=== PATIENT | male | born 1950 | race Caucasian/White ===

== ENCOUNTER 2024-11-24 10:46 | Inpatient (IN) | payer OTHER, MEDICARE ==
[~2024-11-24] VITALS: Ht 177.8 cm; Wt 79.5 kg
--- NOTE | 2024-11-24 10:56 | ELECTROCARDIOGRAPH REPORT ---
[facility] Test Date: 2024-11-24 Test Time: 10:54:17 Pat Name: HUGO MULLINS Department: EMERGENCY ROOM Room: Gender: M Attending Radiologist: DAMARIS : 1950 Requested By: MICHELE RIBEIRO Order Number: [id number] Reading MD: Measurements Intervals [place] Rate: 112 P: 63 HI: 189 QRS: -55 QRSD: 102 T: 46 QT: 335 QTc: 458 Interpretive Statements Sinus tachycardia Inferior infarct, old Consider anterior infarct Baseline wander in lead(s) II Please click the below link to view image of tracing.
--- NOTE | 2024-11-24 11:01 | Physician Documentation ---
History of Present Illness General Chief Complaint: Chest Pain Stated Complaint: CHEST WALL PAIN Time Seen by MD: 10:54 History of Present Illness Initial Comments The patient is a 74-year-old male presents by EMS for a complaint of chest pain. The patient told the EMS that he has had chest pain since this morning. The patient states he has had chest pain over last several days with cough congestion and shortness of breath. He states he has chronic neck and back pain he states he is out of his gabapentin. The patient states that he his been vomiting for two weeks. Currently denying any abdominal pain. The patient denies any fevers or chills. Patient's symptoms are moderate and persistent. The patient's chest pain is right-sided it is worse when he takes a big breath. In his described as sharp. The patient states he uses marijuana he is a nonsmoker but he does smoke marijuana. The patient denies any methamphetamine use. Medication Reconciliation Allergies: Coded Allergies: No Known Allergies (Unverified , 11/24/24) Scheduled Amlodipine Besylate/Benazepril 5/40 MG* (Amlodipine-Benazepril 5/40 MG*), 1 CAP PO BID, (Reported) Aspirin (Aspirin), 1 TAB.CHEW PO DAILY, (Reported) Atorvastatin Calcium (Atorvastatin Calcium), 1 TABLET PO DAILY, (Reported) Duloxetine HCl (Duloxetine HCl), 1 CAP PO HS, (Reported) Duloxetine HCl (Duloxetine HCl), 1 CAP PO AM, (Reported) Gabapentin (Gabapentin), 1 CAP PO Q8H, (Reported) Gabapentin (Gabapentin), 1 TAB PO Q8H, (Reported) Ibuprofen* (Motrin*), 400 MG PO Q8H, (Reported) Lidocaine (Lidocaine), 1 PATCH TOP DAILY, (Reported) Lidocaine (Lidocaine), 7.5 PATCH TOP DAILY, (Reported) Lisinopril* (Lisinopril*), 1 TAB PO DAILY, (Reported) Loratadine* (Alavert*), 1 TAB PO DAILY, (Reported) Metformin Hcl* (Metformin ER*), 1 TAB PO Q12H, (Reported) Methocarbamol (Methocarbamol), 1 TAB PO Q6H, (Reported) Omeprazole (Omeprazole), 1 CAP PO HS, (Reported) Omeprazole (Omeprazole), 1 TAB PO DAILY, (Reported) [Cosamin], 1,500 MG PO DAILY, (Reported) [Meroprolol], 25 MG PO BID, (Reported) [jacinta [place]-3], 1 CAP PO DAILY, (Reported) Scheduled PRN Acetaminophen (Tylenol), 1-2 TAB PO QID PRN PRN for pain or fever, (Reported) Acetaminophen (Tylenol), 1-2 TAB PO TID PRN for pain or fever, (Reported) Hydrocodone Bit/Acetaminophen 5/325 MG ([place] 5/325 MG), 1 TAB PO Q6H PRN for pain, (Reported) ONDANSETRON ODT 4mg tablet (Ondansetron Odt), 1 TAB PO Q6H PRN PRN for nausea/vomiting, (Reported) Miscellaneous Medications Magnesium Sulfate (Magnesium Sulfate), (Reported) Past Medical History Past Medical History: Diabetes, Chronic Back Pain Review of Systems All Other Systems at this time: Reviewed and Negative Physical Exam Physical Exam Physical Exam VITALS: Reviewed and as above. GENERAL: Alert,mild distress secondary to pain, poor hygiene HEENT: Normocephalic, atraumatic, PERRL, EOMI, dry mucosa, no erythema RESPIRATORY: Lungs clear, normal breath sounds, no respiratory distress. CHEST: No accessory muscle use, no retractions CV: Regular rate, rhythm, no edema, no murmur, No: JVD GI: Soft, non-tender, bowels sounds present, no rebound, guarding, or rigidity BACK: No CVA tenderness, or swelling MUSCULOSKELETAL No deformities, no edema SKIN: Warm and dry, no rash NEURO: Oriented x4, No motor or sensory deficit PSYCH: Normal mood and affect, no agitation Progress Results/Orders Results/Orders Orders - OHLFSMICHELE MD Chest,Single View (11/24/24 10:57) Monitor (11/24/24 10:57) Saline Lock (11/24/24 10:57) Oxygen (11/24/24 10:57) Page Hospitalist (11/24/24 13:08) Fill Out Med Reconciliation (11/24/24 13:08) Completed Orders - OHMICHELE MCKEON MD Cbc/Diff (11/24/24 10:52) Normal Saline 1000ml (0.9% Sodium Chlori (11/24/24 10:55) CMP (11/24/24 10:52) Lipase (11/24/24 10:52) Normal Saline 1000ml (0.9% Sodium Chlori (11/24/24 10:55) MG (11/24/24 10:52) Pt Inr (11/24/24 10:52) PBNP (11/24/24 10:52) Electrocardiogram (11/24/24 10:52) Hs Troponin I W Calculations (11/24/24 10:52) Hs Troponin I W Calculations (11/24/24 12:52) Hs Troponin I W Calculations (11/24/24 13:52) Procalcitonin (11/24/24 10:52) Metoclopramide Inj (Reglan Inj) (11/24/24 10:55) Diphenhydramine Inj (Benadryl Inj.) (11/24/24 10:55) Morphine 4mg/Ml Inj. (Morphine Inj.) (11/24/24 10:55) Chest,Single View (11/24/24 10:57) BMP (11/24/24 10:57) Ua W/Microscopic, Cult If Ind (11/24/24 11:30) Vital Signs 11/24/24 11/24/24 11:27 13:06 Temp 98.5 Pulse 108 Resp 20 18 B/P (MAP) 210/105 Pulse Ox 95 O2 Flow Rate 0 Laboratory Tests Test 11/24/24 11:11 11/24/24 11:30 11/24/24 12:46 White Blood Count 14.1 H Red Blood Count 5.32 Hemoglobin 16.0 Hematocrit 47.4 Mean Corpuscular Volume 89.0 Mean Corpuscular Hemoglobin 30.0 Mean Corpuscular Hemoglobin Concent 33.7 Red Cell Distribution Width 12.5 Platelet Count 278 Mean Platelet Volume 7.4 Neutrophils (%) (Auto) 87.8 H Lymphocytes (%) (Auto) 8.8 L Monocytes (%) (Auto) 2.9 Eosinophils (%) (Auto) 0 Basophils (%) (Auto) 0.5 Neutrophils # (Auto) 12.4 H Lymphocytes # (Auto) 1.2 Monocytes # (Auto) 0.4 Eosinophils # (Auto) 0.0 Basophils # (Auto) 0.1 CBC Comment Prothrombin Time 10.8 INR International Normalized Ratio 1.1 D-Dimer 0.55 H D-Dimer Comment Coagulation Comments Sodium Level 139 Potassium Level 4.2 Chloride Level 101 Carbon Dioxide Level 24.9 Anion Gap 13 Blood Urea Nitrogen 18 Creatinine 0.99 Estimated GFR/1.73 m2 73 BUN/Creatinine Ratio 18.2 Glucose Level 365 H Calcium Level 8.6 Magnesium Level 1.8 Total Bilirubin 1.2 H Aspartate Amino Transf (AST/SGOT) 15 Alanine Aminotransferase (ALT/SGPT) 23 Alkaline Phosphatase 110 Troponin I High Sensitivity 23 36 Pro-B-Type Natriuretic Peptide 511 H Total Protein 7.1 Albumin 4.0 Globulin 3.1 Albumin/Globulin Ratio 1.3 Lipase 32 Procalcitonin < 0.05 Chemistry Comments Urine Specimen Description Cln catch midstream Urine Color Yellow Urine Clarity Clear Urine pH 5.5 Urine Specific [place] 1.020 Urine Protein 30 H Urine Glucose (UA) >=1000 H Urine Ketones >=80 Urine Occult Blood Small Urine Nitrite Negative Urine Bilirubin Negative Urine Urobilinogen 0.2 Urine Leukocyte Esterase Negative Urine RBC 0-2 Urine WBC 0-4 Urine Squamous Epithelial Cells None seen Urine Bacteria None seen Urine Mucus Few Urine Culture Indicated Not ind Volume Urine Centrifuged 10 ml Urine Comment Urine Opiates Screen Positive Urine Methadone Screen Negative Urine Fentanyl Screen Negative Urine Barbiturates Screen Negative Urine Phencyclidine Screen Negative Urine Amphetamines Screen Negative Urine Benzodiazepines Screen Negative Urine Cocaine Screen Negative Urine Cannabinoids Screen Positive Drug Screen Comment Troponin I High Sens Percent Delta 56 Troponin I Hi Sens Absolute Change 13 EKG/XRAY/CT/US/VASC/MRI Chest X-Ray : Additional Comments Patient: HUGO MULLINS Medical Record: [id number] [facility] : 1950, Age: 74 Sex: Male Location: ER Patient Status: REG ER Service Date/Time: 11/24/241056 Ordering Physician: MICHELE CANTOR MD Exam: CHEST,SINGLE VIEW DI CHEST,SINGLE VIEW, HISTORY: CP COMPARISON: None None TECHNICAL DATA: 1 view of the chest was obtained. FINDINGS: Lines and tubes: Catheter projects over right chest. Cardiomediastinal silhouette: normal Pulmonary vasculature: normal Lung expansion: normal Lung airspace: Right basilar subsegmental atelectasis. Lung interstitium: normal Pleura: normal Pneumothorax: no Bones: Unremarkable Other: no IMPRESSION: Right basilar subsegmental atelectasis. Electronically Signed by:KIRILL RIVERS MD Date & Time: 11/24/24 114 Dictated by: KIRILL RIVERS MD Dictation date and time: 11/24/24 1146 Primary Care Provider: NO PRIMARY CARE PROVIDER cc: MICHELE CANTOR MD ~ Medical Decision Making Findings The patient is 12 lead EKG demonstrates a left axis deviation a rate of 112 sinus tachycardia with nonspecific ST abnormality EKGs interpreted as abnormal. The patient presents and a poor study at [facility] that who does not appear to be taking his diabetes meds or his gabapentin for his chronic pain the patient was found to be dehydrated hyperglycemic and complaining of chest pain is cardiac workup has been fairly unremarkable his EKG just showed sinus tachycardia his cardiac enzymes are negative but given the patient's state of health I believe he would benefit from inpatient admission the patient is amenable to inpatient admission his chest x-ray has been independently reviewed by me it demonstrated a normal cardiac silhouette normal mediastinum and normal-appearing lung ramirez. I interpreted as labs as well as interpreted his EKG. The patient's pulse oximetry was interpreted as normal and adequate. And the patient's vet assistant was interpreted as a sinus tachycardia Departure Admitted to Inpatient Unit: yes, to hospitalist Impression: Primary Impression: Chest pain Qualified Codes: R07.9 - Chest pain, unspecified Additional Impressions: Dehydration Hyperglycemia due to diabetes mellitus Referrals: NO PRIMARY CARE PROVIDER (PCP) Signature Scribe Signature: no scribe Attestation: The note accurately reflects work and decisions made by me.Michele Cantor MD 11/27/24 12:06 MICHELE CANTOR MD Nov 24, 2024 11:01
[2024-11-24] MEDS: morphine 4 MG/ML inj SYRINge IV ONE ×2 (11:02→16:48)
[2024-11-24] MEDS: metoclopramide 5 mg/ml inj IV ONE (11:03)
[2024-11-24] MEDS: normal saline 1000ML IV soln IVB ONE ×2 (11:06→11:41)
[2024-11-24 11:20] LABS: MEAN PLATELET VOLUME 7.4 FL (7.4-10.4); RED CELL DISTRIBUTION WIDTH 12.5 % (11.5-14.5)
[2024-11-24 11:32] LABS: INR 1.1 INR
[2024-11-24 11:36] LABS: CREATININE 0.99 MG/DL (0.60-1.10); TOTAL CARBON DIOXIDE 24.9 MMOL/L (24-32); eCRCL 66 ML/MIN; eGFR 73 ML/MIN
[2024-11-24 11:40] LABS: LEUKOCYTE ESTERASE ,URINE NEGATIVE (Neg); NITRITES, URINE NEGATIVE (Neg); OCCULT BLOOD,URINE SMALL (Neg)
[2024-11-24 11:43] LABS: PRO BRAIN NATRIURETIC PEPTIDE 511 PG/ML (0-450)
[2024-11-24 11:43] LABS: UA COLLECTION TYPE CLN CATCH MIDSTREAM
[2024-11-24 11:44] LABS: MUCUS STRANDS FEW /LPF (Neg); SQUAMOUS EPITHELIAL CELL,UR NONE SEEN /LPF (FEW)
--- NOTE | 2024-11-24 11:49 | RADIOLOGY REPORT ---
DI CHEST,SINGLE VIEW, HISTORY: CP COMPARISON: None None TECHNICAL DATA: 1 view of the chest was obtained. FINDINGS: Lines and tubes: Catheter projects over right chest. Cardiomediastinal silhouette: normal Pulmonary vasculature: normal Lung expansion: normal Lung airspace: Right basilar subsegmental atelectasis. Lung interstitium: normal Pleura: normal Pneumothorax: no Bones: Unremarkable Other: no IMPRESSION: Right basilar subsegmental atelectasis.
[2024-11-24] MEDS ORDERED: magnesium hydroxide 30ml (MOM) UD suspension PO PRN (13:55)
[2024-11-24] MEDS ORDERED: mag hydrox/Alum hydrox/simeth 30ml oral suspension PO PRN (13:55)
[2024-11-24] MEDS ORDERED: potassium Cl 40MEQ/1/2NS 520ml 520 ML IV PRN (13:55)
[2024-11-24] MEDS ORDERED: PERFLUTREN PROTEIN-A MICROSPHR (Optison) 0.22 MG/ML 3ML VIAL IV ONE (13:55)
[2024-11-24] MEDS ORDERED: magnesium sulf-water 2g/50mL 50 ML IV PRN (13:55)
[2024-11-24] MEDS ORDERED: potassium Cl 20 mEq SR tablet PO PRN ×2 (13:55)
[2024-11-24] MEDS ORDERED: magnesium sulf-water 4G/100mL 100 ML IV PRN (13:55)
[2024-11-24] MEDS ORDERED: HYDROcodone/acetaminophen 5mg/325mg tablet PO PRN (13:55)
[2024-11-24] MEDS ORDERED: labetalol 20mg/4ml (5mg/ml) syringe IV PRN (13:55)
[2024-11-24] MEDS ORDERED: ondansetron/PF 4mg/2ml inj IV PRN (13:55)
--- NOTE | 2024-11-24 14:06 | HISTORY AND PHYSICAL ---
History & Physical Providers to ~ History of Present Illness Reason for Admit\Complaint: Hypertensive emergency, r/o ACS History of Present Illness Rashad Dumont is a 74-year-old male with a past medical/surgical history of laminectomy, diskectomy, chronic lower back pain, NIDDM, hyperlipidemia, s/p cardiac stent x 2, s/p brain shunt who presented to the ED with chief complaint of acute onset chest pain that is sharp in quality that worsens with deep breathing x 1 day. Patient also reports associated symptoms of vomiting, cough, congestion, shortness of breaths for several days which now have subsided. Patient denies prior CVA, cardiac arrhythmia, DVT/PE, or GIB. Patient currently denies chest pain, palpitations, shortness of breath, abdominal pain, n/v/d, fever, chills, dysuria. Patient is to be admitted for further workups and treatment. Allergies: Coded Allergies: No Known Allergies (Unverified , 11/24/24) Past Medical History Past Medical History NIDDM Hyperlipidemia CAD Seizure disorder Chronic lower back pain Past Surgical History Surgical History Comment Laminectomy Diskectomy Cardiac stent x 2 (10 years ago) Cholecystectomy Tonsillectomy and adenoidectomy Brain shunt Past Social History Social History Comment Alcohol: Denies Tobacco: Denies, former smoker of 1-2 years, quit 54 years ago Illicit drug use: Marijuana Living situation: Lives at home alone ROS ROS Other than positives in HPI, all 14 review of systems are negative Exam Vitals: Vital Signs Date Time Temp Pulse Resp B/P (MAP) Pulse Ox O2 Delivery O2 Flow Rate FiO2 11/24/24 13:06 18 11/24/24 11:27 98.5 108 95 0 General: Generalized weakness, A&Ox 3, NAD HEENT: Normocephalic, PERRLA Neck: Supple, trachea midline, no JVD Chest: Clear to auscultation bilaterally Cardiovascular: RRR, S1&S2 Abdomen: Soft and nontender Extremities: No cyanosis/clubbing/or edema Central Nervous System: CN II-XII intact, no focal deficits Musculoskeletal: Positive paraspinal muscle tenderness Skin: Warm and intact Diagnostic Data Last Recorded Lab Results: 11/24/24 1111 11/24/24 1111 Diagnostic Data: Laboratory Tests Test 11/24/24 11:11 Prothrombin Time 10.8 SECONDS (9.0-12.0) INR International Normalized Ratio 1.1 INR Coagulation Comments Additional Plan Assessment & Plan Hypertensive emergency CAD s/p cardiac stent x 2 (approx 10 years ago) SIRS vs Sepsis Isolated hyperbilirubinemia -d-dimer 0.55, HEART score 6 -pBNP 500s, procal neg, UA neg, trops negative, CXR unremarkable, EKG sinus at [address] elevation/depression -labetalol, hydralazine, aspirin, statin, prn nitroglycerin, IVF, abx, follow CTA, TTE, blood cx, Lexiscan, venous US BLE CAD s/p cardiac stent x 2 (approx 10 years ago) HLD NIDDM HTN Seizure disorder hx laminectomy, discectomy Chronic lower back pain -supportive care, hyper/hypoglycemic protocol, follow A1c, lipid panel DVT/VTE Prophylaxis: heparin Code Status: DNR/DNI I spent a total of 35 minutes discussing Advanced Care Planning measures with the patient. Advance care planning: Discussed with patient the importance of advance care planning in case of emergent situation. We discussed various resuscitative measures/ ACP with the patient at the time of admission. Patient voiced understanding and patient has decided on a DNR/DNI status. Date of Service: Nov 24, 2024 Billing Provider: SAMPSON HUANG Common Visit Codes: 90514-CWQQPIQ INP/OBS CARE (HIGH) Secondary Visit Codes: 20714-NAGLOQUW CARE PLAN 30 MINUTES SAMPSON HUANG Nov 24, 2024 14:06
[2024-11-24 14:31] LABS: URINE AMPHETAMINE SCREEN NEGATIVE (Neg); URINE BARBITUATE SCREEN NEGATIVE (Neg); URINE BENZODIAZEPINES SCREEN NEGATIVE (Neg); URINE CANNABINOID SCREEN POSITIVE (Neg); URINE COCAINE SCREEN NEGATIVE (Neg); URINE METHADONE SCREEN NEGATIVE (Neg); URINE OPIATE SCREEN POSITIVE (Neg); URINE PHENCYCLIDINE SCREEN NEGATIVE (Neg)
[2024-11-24] MEDS ORDERED: DEXTROSE 15 GM of carb/4 tabs (each vial/BOTTLE has 4 tablets) PO PRN ×2 (15:05)
[2024-11-24] MEDS ORDERED: dextrose 50%-water 50ml dispensing syringe IV PRN ×2 (15:05)
[2024-11-24] MEDS ORDERED: glucagon, human recombinant 1mg kit SUBCUT PRN (15:05)
[2024-11-24] MEDS ORDERED: albuterol 2.5 MG/3 ML nebule NEB PRN (15:25)
[2024-11-24] MEDS ORDERED: ipratropium/albuterol 3ml nebule NEB PRN (15:25)
[2024-11-24] MEDS ORDERED: GABA-535 PO (15:33)
[2024-11-24] MEDS ORDERED: ACET-890 PO ×2 (15:33→17:12)
[2024-11-24] MEDS ORDERED: hydrALAZINE 20mg/ml inj. IV PRN (16:00)
[2024-11-24 16:24] VITALS: PULSE 102; RESP 16; O2SAT 99
[2024-11-24] MEDS ORDERED: metoprolol tartrate 1mg/ml inj IV PRN (17:00)
[2024-11-24] MEDS ORDERED: aminophylline 250mg/10ml inj. IV PRN (17:00)
[2024-11-24] MEDS ORDERED: DULO60CA65 PO (17:12)
[2024-11-24] MEDS ORDERED: LORA-512 PO (17:12)
[2024-11-24] MEDS ORDERED: OMEP-419 PO (17:12)
[2024-11-24] MEDS ORDERED: DULO30CA52 PO (17:12)
[2024-11-24] MEDS ORDERED: ATOR-2 PO (17:12)
[2024-11-24] MEDS ORDERED: OMEP20CA15 PO (17:12)
[2024-11-24] MEDS ORDERED: COSAMIN PO (17:12)
[2024-11-24] MEDS ORDERED: AMLO-140 PO (17:12)
[2024-11-24] MEDS ORDERED: METF-900 PO (17:12)
[2024-11-24] MEDS ORDERED: HYDR-3965 PO (17:12)
[2024-11-24] MEDS ORDERED: ONDA-243 PO (17:12)
[2024-11-24] MEDS ORDERED: MEGA RED OMEGA PO (17:12)
[2024-11-24] MEDS ORDERED: METH-798 PO (17:12)
[2024-11-24] MEDS ORDERED: GABA-1405 PO (17:12)
[2024-11-24] MEDS ORDERED: MAGN100C4 (17:12)
[2024-11-24] MEDS ORDERED: IBUP-1984 PO (17:12)
[2024-11-24] MEDS ORDERED: ASPI-1265 PO (17:12)
[2024-11-24] MEDS ORDERED: LISI40TA20 PO (17:12)
[2024-11-24] MEDS ORDERED: LIDO700A47 TOP (17:12)
[2024-11-24] MEDS ORDERED: [UNRECOGNIZED DRUG - OTHER] PO (17:12)
[2024-11-24] MEDS ORDERED: HYDROmorphone/PF 0.2 MG/ML SYRINGE IV PRN (17:35)
[2024-11-24] MEDS: CefTRIAXone/D5W-Rocephin 1gm 50 ML IV ONE (19:23)
[2024-11-24] MEDS: azithromycin/NS 500mg/250ml 250 ML IV ONE (19:25)
[2024-11-24] MEDS: K and/or MAG REPLACEMENT MC SCH (20:00)
[2024-11-24 20:40] VITALS: BP 144/79; PULSE 69; RESP 19; TEMP 97.8; O2SAT 91
[2024-11-24] MEDS: INSULIN LISPRO 100 UNIT/ML INSULN.PEN MULTI-DOSE SQ SCH (21:00)
[2024-11-24] MEDS: docusate sod 100mg capsule PO SCH (21:09)
[2024-11-24] MEDS: aspirin 81mg, enteric-coated 1 TAB TABLET.DR PO ONE (21:09)
[2024-11-24] MEDS: HYDROcodone/acetaminophen 10/325mg tab PO PRN (21:10)
[2024-11-24] MEDS: heparin, porcine 5000 units/ml vial SQ SCH (21:11)
[2024-11-24 22:00] VITALS: BP 144/79; PULSE 69; RESP 19; TEMP 97.8; O2SAT 91
[2024-11-24 23:15] VITALS: PULSE 82; RESP 16; O2SAT 96
[2024-11-25] VITALS (10 sets, daily range): BP systolic 91–152; BP diastolic 52–95; PULSE 69–121; RESP 16–20; TEMP 96.9–98.6; O2SAT 91–96
[2024-11-25 06:48] LABS: MEAN PLATELET VOLUME 7.8 FL (7.4-10.4); RED CELL DISTRIBUTION WIDTH 12.6 % (11.5-14.5)
[2024-11-25 07:06] LABS: CHOL/HDL RATIO 7.3 (0.00-4.99); CREATININE 0.88 MG/DL (0.60-1.10); LDL CHOLESTEROL 159 MG/DL (50-100); TOTAL CARBON DIOXIDE 29.7 MMOL/L (24-32); eCRCL 74 ML/MIN; eGFR 84 ML/MIN
[2024-11-25] MEDS: aspirin 81mg, enteric-coated 1 TAB TABLET.DR PO SCH (08:12)
[2024-11-25] MEDS: CefTRIAXone/D5W-Rocephin 1gm 50 ML IV SCH (08:19)
--- NOTE | 2024-11-25 09:34 | VASCULAR REPORT ---
VASC VL VENOUS HISTORY: pain COMPARISON: None TECHNIQUE: Duplex doppler evaluation of the deep venous system of the lower extremity from the common femoral veins, superficial femoral vein, great saphenous vein, deep femoral vein, popliteal vein, an d calf veins, including color doppler and spectral/pulsed waveform analysis, was performed. FINDINGS: Right: - Common femoral vein: Compressible - Deep femoral vein: Compressible - Femoral vein: Compressible - Popliteal vein: Compressible - Posterior tibial vein: Waveforms present - Peroneal vein: Waveforms present - Other: Nothing Left: - Common femoral vein: Compressible - Deep femoral vein: Compressible - Femoral vein: Compressible - Popliteal vein: Compressible - Posterior tibial vein: Waveforms present - Peroneal vein: Waveforms present - Other: Nothing IMPRESSION: No right or left lower extremity deep venous thrombosis.
[2024-11-25] MEDS: HYDROmorphone inj. 0.5 MG/0.5 ML DISP.SYRIN IV PRN (09:42)
[2024-11-25] MEDS: regadenoson 0.4mg/5ml syringe IV PRN (10:06)
[2024-11-25] MEDS ORDERED: dextrose 50%-water 50ml dispensing syringe IV PRN (11:35)
[2024-11-25] MEDS: azithromycin/NS 500mg/250ml 250 ML IV SCH (11:39)
--- NOTE | 2024-11-25 11:51 | RADIOLOGY REPORT ---
CLINICAL INFORMATION: 74 years old, Male; unstable angina. Chest pain. TECHNIQUE: 8.0 mCi of technetium 99m sestamibi was infused at rest. Rest SPECT imaging was obtained. Routine protocol for Lexiscan stress study was performed with 0.4 mg of Lexiscan. 34.0 mCi of techne tium 99m sestamibi was infused. Stress SPECT imaging was obtained. COMPARISON: None FINDINGS: Resting heart rate of 83 BPM increased to maximum rate of 97 BPM. Resting blood pressure of 152/69, also 152/69 at stress. There were no significant ST-T wave EKG changes. There was no chest p ain. There are perfusion defects in the lateral wall and involving adjacent portions of the anterolateral and inferolateral perez, to a greater degree on rest, at least partly due to artifact. No definite e vidence of reversible ischemia TID ratio is 1.51. Calculated left ventricular ejection fraction is 52%. IMPRESSION: 1. Perfusion defects in the lateral wall and adjacent portions of the anterolateral and inferolateral perez are greater on rest compared to stress, at least partly due to artifact. No definite focal are a of reversible ischemia. 2. Abnormal TID of 1.51 consistent with transient ischemic dilatation. May be seen in the setting of severe balanced coronary artery disease with subendocardial ischemia. 3. Left ventricular ejection fraction is 52%.
[2024-11-25] MEDS: INSULIN LISPRO 100 UNIT/ML INSULN.PEN MULTI-DOSE SQ SCH (13:00)
--- NOTE | 2024-11-25 14:04 | DISCHARGE SUMMARY ---
Discharge Summary Providers to CC ~ Discharge Summary Admission Diagnosis: Hypertensive emergency, chest pain Hospital Course DATE OF ADMISSION: 11/24/24 DATE OF DISCHARGE: 11/25/24 Discharge Diagnosis\Comment: Hypertensive emergency CAD s/p cardiac stent x 2 (approx 10 years ago) SIRS vs Sepsis Isolated hyperbilirubinemia HLD NIDDM HTN Seizure disorder hx laminectomy, discectomy Chronic lower back pain Left AMA Operations\Procedures: None Consultants: None Complications: Left AMA Condition on DC: Unstable Discharge Summary: Patient examined at bedside in am. No new complaints, not in acute distress. Patient denies chest pain, sob, palpitations, abdominal pain, n/v/d. Patient is not medically cleared for discharge and further diagnostic workups are pending results. However, patient left AMA this afternoon despite explaining risks associated with leaving AMA. Physical Exam General: A&Ox 3, NAD HEENT: Normocephalic, PERRLA Neck: Supple, trachea midline, no JVD Chest: Clear to auscultation bilaterally Cardiovascular: RRR, S1&S2 GI: Soft and nontender Extremities: No cyanosis/clubbing/or edema EARLY LEARNING TEACHER: CN II-XII intact, no focal deficits Musculoskeletal: No paraspinal muscle tenderness, no muscle spasm Skin: Warm and intact *Problems/Diagnosis: (1) Chest pain Status: Acute Total Time Spent on D/C: > 30 Minutes Date of Service: Nov 25, 2024 Billing Provider: SAMPSON HUANG Common Visit Codes: 62818-YIF/OBS DISCH DAY >30min Problem Qualifiers (1) Chest pain: Qualified Codes: R07.9 - Chest pain, unspecified SAMPSON HUANG Nov 25, 2024 14:04
--- NOTE | 2024-11-25 14:07 | RADIOLOGY REPORT ---
CLINICAL INFORMATION: Severe back pain. Elevated D-dimer. TECHNIQUE: Axial CTA images of the chest were obtained after the uneventful administration of 100 mL of Omnipaque 350 IV contrast. Coronal and sagittal reformatted images and MIP images were obtained, r eviewed, and stored. One or more of the following dose reduction techniques were used: Automated expo sure control. Adjustment of mA and/or kV according to patient size. CTDIvol = 22.46, 20.36, 0.14 mGy DLP = 1538.91 mGy-cm COMPARISON: Chest radiograph dated 11/24/2024. FINDINGS: Aorta: No thoracic or abdominal aortic aneurysm or dissection. Moderate atherosclerotic calcification . Origins of the brachiocephalic, left common carotid, and left subclavian arteries are widely patent . Origins of the celiac artery, SMA, bilateral renal arteries, and KEV are patent. Moderate calcifica tion at the renal artery origins without significant stenosis demonstrated. Moderate calcification at the KEV origin. Dense atherosclerotic calcification in the common iliac arteries and internal and ex ternal iliac arteries bilaterally with areas of likely moderate to severe stenosis in the internal il iac arteries bilaterally. There is no active extravasation of arterial contrast demonstrated. Pulmonary arteries: No central or lobar pulmonary embolism. Evaluation for segmental or subsegmental pulmonary emboli is limited due to respiratory motion artifact. Cardiac: Heart size is within normal limits. Marked coronary artery calcification. Mediastinum/leodan: No mass or adenopathy. Lungs: Respiratory motion artifact limits evaluation for subtle findings. No focal consolidation, pne umothorax, or pleural effusion. Scattered areas of subsegmental atelectasis are seen. Chest wall: No mass or other abnormality. Abdomen/pelvis: Hepatic steatosis. Postsurgical changes of prior cholecystectomy. Common bile duct is mildly dilated, measuring up to 0.9 cm in diameter, may be seen after cholecystectomy due to reservo ir effect. Spleen is unremarkable. Pancreatic duct is dilated up to 0.6 cm with somewhat irregular co ntour of the pancreatic duct, may be seen with chronic pancreatitis. Mild thickening of the adrenal g lands bilaterally, likely due to hyperplasia. There are bilateral renal cysts. No hydronephrosis. Pos sible scarring in both kidneys. No retroperitoneal lymphadenopathy visualized. Nondilated fluid-fille d small bowel loops with no small bowel obstruction. There are a few scattered colonic diverticula wi thout adjacent inflammatory changes to suggest diverticulitis. No free air or free fluid. Enlarged pr ostate with mild impression on the bladder base. Mildly distended bladder. Bones: No acute fracture or suspicious intraosseous lesions. Chronic appearing fractures in the right posterolateral 9th, 10th, and 11th ribs. Chronic appearing compression fracture at the T12 vertebral body with up to 30% loss of height at its anterior aspect. IMPRESSION: 1. No thoracic or abdominal aortic aneurysm or dissection. 2. Atherosclerotic disease as detailed above. 3. No central or lobar pulmonary embolism. Evaluation for segmental or subsegmental pulmonary emboli is limited due to respiratory motion artifact. 4. Otherwise, no evidence of acute disease in the chest. 5. Nonspecific nondilated fluid-filled small bowel loops. Findings may be seen with ileus or enteriti s in the appropriate clinical setting. No small bowel obstruction. 6. Postsurgical changes of prior cholecystectomy. Common bile duct is mildly dilated, may be seen af ter cholecystectomy due to reservoir effect. Correlate with clinical findings. 7. Dilated pancreatic duct with irregular contour, may be seen with chronic pancreatitis in the appro priate clinical setting. 8. Additional findings as described above. 9. Examination was performed on 11/24/2024, although not available on the radiologist's worklist unti l 11/25/2024 due to a technical/order issue with the study.
--- NOTE | 2024-11-25 17:47 | CARDIOLOGY REPORT ---
APPROVED REPORT EXAM: Limited 2D, Doppler, and color-flow Echocardiogram. Patient Location: ER 9 Heart Rate: 105 bpm Rhythm: SINUS Indications HYPERTENSION PBNP 511 CHEST PAIN SHORTNESS OF BREATH STENTS x2 2015 [employer] Department: RENEE Previous echo: NONE AVAILABLE 2D Dimensions IVSd 1.0 (0.7-1.1cm) LVDd 4.2 cm PWd 1.0 (0.7-1.1cm) IVSs 1.6 (0.8-1.2cm) LVDs 3.0 (2.5-4.0cm) PWs 1.9 (0.8-1.2cm) LVOT Diameter 1.90 (1.8-2.4cm) LVEF(%) 55.2 (>50%) FS (%) 28.4 % SV 43.6 ml CO 4.6 L/min M-Mode Dimensions Aortic Root 3.70 (2.2-3.7cm) Aortic Cusp Exc 1.91 (1.5-2.0cm) LEFT VENTRICLE Normal LV size and wall thickness. Overall systolic function is normal. Overall LVEF is 55-60%. RIGHT VENTRICLE RV appears normal in size and function. ATRIA The left atrium size appears normal. AORTIC VALVE Probable Trileaflet AV appears at least mildly thickened, but poorly visualized. No gross stenosis or insufficiency. No AV Doppler due to patient being uncooperative and not able to finish exam. MITRAL VALVE Mild MV annular calcification without stenosis. ?Trace regurgitation. No MV Doppler due to patient be ing uncooperative and not able to finish exam. TRICUSPID VALVE TV appears structurally normal with ?trace regurgitation. Limited TV Doppler due to patient being unc ooperative and not able to finish exam. PULMONIC VALVE Pulmonic valve is not well visualized. GREAT VESSELS The aortic root is normal in size. PERICARDIUM Normal pericardium. No effusion. Other Information Study Quality: Technically Limited due to patient being uncooperative, pain and exam not completed. Conclusion Overall LVEF is 55-60%. Normal LV size and wall thickness. Overall systolic function is normal. RV appears normal in size and function. Probable Trileaflet AV appears at least mildly thickened, but poorly visualized. No gross stenosis o r insufficiency. No AV Doppler due to patient being uncooperative and not able to finish exam. Mild MV annular calcification without stenosis. ?Trace regurgitation. No MV Doppler due to patient be ing uncooperative and not able to finish exam. TV appears structurally normal with ?trace regurgitation. Limited TV Doppler due to patient being unc ooperative and not able to finish exam. Normal pericardium. No effusion.
[2024-11-25] MEDS ORDERED: insulin glargine (Lantus) pen - multi-dose SQ SCH (21:00)
== END 2024-11-25 14:19 | disposition left against medical advice (07) | DRG 872 ==
LOC: ER 10:47 → ED HOLD 14:04 → ORTHO 4S 20:50
PROVIDERS: ADMIT Nurse Practitioner Family; ATTEND Nurse Practitioner Family
PROC: B3251ZZ Computerized Tomography (CT Scan) of Bilateral Common Carotid Arteries using Low Osmolar Contrast (ICD-10-PCS; principal; 2024-11-24)
PROC: B3201ZZ Computerized Tomography (CT Scan) of Thoracic Aorta using Low Osmolar Contrast (ICD-10-PCS; 2024-11-24)
PROC: B32S1ZZ Computerized Tomography (CT Scan) of Right Pulmonary Artery using Low Osmolar Contrast (ICD-10-PCS; 2024-11-24)
PROC: B32T1ZZ Computerized Tomography (CT Scan) of Left Pulmonary Artery using Low Osmolar Contrast (ICD-10-PCS; 2024-11-24)
PROC: 4A02XM4 Measurement of Cardiac Total Activity, External Approach (ICD-10-PCS; 2024-11-25)
PROC: 3E073KZ Introduction of Other Diagnostic Substance into Coronary Artery, Percutaneous Approach (ICD-10-PCS; 2024-11-25)
DX: A41.9 Sepsis, unspecified organism (principal); I16.1 Hypertensive emergency; R17 Unspecified jaundice; E86.0 Dehydration; E11.65 Type 2 diabetes mellitus with hyperglycemia; I25.10 Atherosclerotic heart disease of native coronary artery without angina pectoris; E78.5 Hyperlipidemia, unspecified; Z66 Do not resuscitate; I10 Essential (primary) hypertension; G40.909 Epilepsy, unspecified, not intractable, without status epilepticus; G89.29 Other chronic pain; M54.50 Low back pain, unspecified; Z53.29 Procedure and treatment not carried out because of patient's decision for other reasons; M54.2 Cervicalgia; F12.90 Cannabis use, unspecified, uncomplicated; Z95.5 Presence of coronary angioplasty implant and graft; Z79.84 Long term (current) use of oral hypoglycemic drugs; Z87.891 Personal history of nicotine dependence
CPT/HCPCS: 36415; 71045; 71275; 74174; 78452; 80053; 80061; 80305; 81001; 82948; 83036; 83690; 83735; 83880; 84145; 84484; 85025; 85379; 85610; 87040; 87081; 93005; 93017; 93308; 93970; 94760; 96365; 96368; 96375; 99285; A9500; G0378; J0456; J0696; J1171; J1200; J1644; J1815; J2270; J2765; J2785; J7030; Q9967

== ENCOUNTER 2024-11-27 10:08 | Inpatient (IN) | payer OTHER, MEDICARE ==
[~2024-11-27] VITALS: Ht 177.8 cm; Wt 79.5 kg
[~2024-11-27 10:08] MED LIST: ACET-890 PO; AMLO-140 PO; ASPI-1265 PO; ATOR-2 PO; COSAMIN PO; DULO30CA52 PO; DULO60CA65 PO; GABA-1405 PO; GABA-535 PO; HYDR-3965 PO; IBUP-1984 PO; LIDO700A47 TOP; LISI40TA20 PO; LORA-512 PO; MAGN100C4; MEGA RED OMEGA PO; METF-900 PO; METH-798 PO; OMEP-419 PO; OMEP20CA15 PO; ONDA-243 PO; [UNRECOGNIZED DRUG - OTHER] PO
--- NOTE | 2024-11-27 10:12 | Physician Documentation ---
History of Present Illness ~ Stated Complaint: CHEST PAIN Time Seen by MD: 10:09 HPI 74-year-old male who is seen here two days ago and admitted prior to leaving.AMA Today he presents with chest wall pain reported vomiting. Denies any drug use denies any alcohol use he is not forthcoming with his symptoms. EMS indicates that he was violent and yelling it during transport Patient complains of severe back pain without injury 12/28 back pain. Patient does appear diaphoretic and has not elevated blood pressure during triage Day of Onset: Nov 27, 2024 Tetanus within 5 Years?: No Allergies: Coded Allergies: No Known Allergies (Unverified , 11/24/24) Active Prescriptions See Medication Reconciliation Form. Medication Reconciliation Scheduled Amlodipine Besylate/Benazepril 5/40 MG* (Amlodipine-Benazepril 5/40 MG*), 1 CAP PO BID, (Reported) Aspirin (Aspirin), 1 TAB.CHEW PO DAILY, (Reported) Atorvastatin Calcium (Atorvastatin Calcium), 1 TABLET PO DAILY, (Reported) Duloxetine HCl (Duloxetine HCl), 1 CAP PO HS, (Reported) Duloxetine HCl (Duloxetine HCl), 1 CAP PO AM, (Reported) Gabapentin (Gabapentin), 1 CAP PO Q8H, (Reported) Gabapentin (Gabapentin), 1 TAB PO Q8H, (Reported) Ibuprofen* (Motrin*), 400 MG PO Q8H, (Reported) Lidocaine (Lidocaine), 1 PATCH TOP DAILY, (Reported) Lidocaine (Lidocaine), 7.5 PATCH TOP DAILY, (Reported) Lisinopril* (Lisinopril*), 1 TAB PO DAILY, (Reported) Loratadine* (Alavert*), 1 TAB PO DAILY, (Reported) Metformin Hcl* (Metformin ER*), 1 TAB PO Q12H, (Reported) Methocarbamol (Methocarbamol), 1 TAB PO Q6H, (Reported) Omeprazole (Omeprazole), 1 CAP PO HS, (Reported) Omeprazole (Omeprazole), 1 TAB PO DAILY, (Reported) [Cosamin], 1,500 MG PO DAILY, (Reported) [Meroprolol], 25 MG PO BID, (Reported) [jacinta Red [place]-3], 1 CAP PO DAILY, (Reported) Scheduled PRN Acetaminophen (Tylenol), 1-2 TAB PO QID PRN PRN for pain or fever, (Reported) Acetaminophen (Tylenol), 1-2 TAB PO TID PRN for pain or fever, (Reported) Hydrocodone Bit/Acetaminophen 5/325 MG ([place]eds 5/325 MG), 1 TAB PO Q6H PRN for pain, (Reported) ONDANSETRON ODT 4mg tablet (Ondansetron Odt), 1 TAB PO Q6H PRN PRN for nausea/vomiting, (Reported) Miscellaneous Medications Magnesium Sulfate (Magnesium Sulfate), (Reported) Past Medical History Past Medical History: Diabetes, Chronic Back Pain Patient History: Patient reports no known family medical history. Review of Systems All Other Systems at this time: Reviewed and Negative ROS As stated above in the HPI, otherwise all systems are reviewed and negative. Physical Exam Physical Exam General: Alert, mild distress Respiratory: Lungs clear, no respiratory distress. Chest: No accessory muscle use. Cardiovascular: tachycardic and rhythm, no murmurs. Neurologic: Oriented x4. Psychiatric: Normal mood and affect. 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 (Apresoline Inj.) (11/27/24 10:25) Hydrocodone/Apap 10/325 (Reeds 10/325mg (11/27/24 10:45) Hydralazine Inj. (Apresoline Inj.) (11/27/24 10:55) Metoprolol Tartrate Inj (Lopressor Iv) (11/27/24 11:15) Metoprolol Tartrate Inj (Lopressor Iv) (11/27/24 11:30) Clonidine 0.2mg/24 Hour Patch (Catapress (11/27/24 11:45) Ondansetron Inj. (Zofran 4mg/2ml Vial) (11/27/24 11:45) Morphine 4mg/Ml Inj. (Morphine Inj.) (11/27/24 11:45) Medications Received in ER Medications (Trade) Dose Ordered Sig/Xavier Route PRN Reason Start Time Stop Time Status Last Admin Dose Admin (Apresoline inj.) 10 mg ONCE ONCE IV 11/27/24 10:25 11/27/24 10:26 DC 11/27/24 10:41 10 MG (Reeds 10/325mg tab) 1 tab ONCE ONCE PO 11/27/24 10:45 11/27/24 10:46 DC 11/27/24 10:50 1 TAB (Apresoline inj.) 10 mg ONCE ONCE IV 11/27/24 10:55 11/27/24 10:56 DC 11/27/24 11:00 10 MG (Catapress 0.2MG/ 24 HOUR Patch) 1 patch ONCE ONCE TD 11/27/24 11:45 11/27/24 11:46 DC 11/27/24 12:16 1 PATCH (Zofran 4mg/2ml vial) 4 mg ONCE ONCE IV 11/27/24 11:45 11/27/24 11:46 DC 11/27/24 11:57 4 MG (morphine inj.) 4 mg ONCE ONCE IV 11/27/24 11:45 11/27/24 11:47 DC 11/27/24 11:57 4 MG Vital Signs 11/27/24 11/27/24 11/27/24 11/27/24 10:16 10:41 10:43 10:50 Temp 99.0 Pulse 110 109 Resp 16 18 B/P (MAP) 218/134 Pulse Ox 97 O2 Flow Rate 0 11/27/24 11/27/24 11/27/24 11/27/24 10:56 11:00 11:03 11:23 Temp 99.0 Pulse 118 116 118 Resp 22 22 18 B/P (MAP) 220/119 (152) 192/101 (131) Pulse Ox 98 96 O2 Flow Rate 0 0 11/27/24 11/27/24 11/27/24 11:35 11:57 12:35 Pulse 126 116 Resp 16 20 16 B/P (MAP) 199/113 (141) 158/90 (112) Pulse Ox 96 96 O2 Flow Rate 0 0 Laboratory Tests Test 11/27/24 10:27 11/27/24 12:19 White Blood Count 13.6 H Red Blood Count 5.59 Hemoglobin 17.0 Hematocrit 50.5 Mean Corpuscular Volume 90.2 Mean Corpuscular Hemoglobin 30.3 Mean Corpuscular Hemoglobin Concent 33.6 Red Cell Distribution Width 12.7 Platelet Count 282 Mean Platelet Volume 7.6 Neutrophils (%) (Auto) 69.4 Lymphocytes (%) (Auto) 17.1 L Monocytes (%) (Auto) 9.7 Eosinophils (%) (Auto) 3.2 Basophils (%) (Auto) 0.6 Neutrophils # (Auto) 9.4 H Lymphocytes # (Auto) 2.3 Monocytes # (Auto) 1.3 H Eosinophils # (Auto) 0.4 Basophils # (Auto) 0.1 CBC Comment Sodium Level 139 Potassium Level 3.7 Chloride Level 103 Carbon Dioxide Level 24.9 Anion Gap 11 Blood Urea Nitrogen 38 H Creatinine 1.02 Estimated GFR/1.73 m2 71 BUN/Creatinine Ratio 37.3 H Glucose Level 291 H Calcium Level 9.2 Troponin I High Sensitivity 9 11 Troponin I High Sens Percent Delta 75 22 Troponin I Hi Sens Absolute Change -28 2 Pro-B-Type Natriuretic Peptide 86 Albumin 4.2 Chemistry Comments Medical Decision Making Findings Patient initially presented with nonspecific symptoms including chest pain and back pain. Additionally his hypertension has been difficult to treat after multiple doses of hydralazine and metoprolol. I added clonidine and a dose of morphine because I suspect opioid withdrawal is an element of his presentation I think he would benefit from hospital admission to prevent any further exacerbation at this time His blood pressure is 175/96 with a heart rate of 120 Differential Dx:Considerations: Include: Chest wall contusion, Flail chest, Myocardial contusion, Pneumothorax, Pulmonary contusion, Rib fracture, Renal contusion, Splenic fracture, Tension pneumothorax, Other Departure Disposition: ADMITTED INPATIENT Impression: Primary Impression: Chest pain Additional Impression: Back injury Referrals: NO PRIMARY CARE PROVIDER (PCP) Signature Scribe Signature: y Attestation: Scribed for Micha Fontanez Np by Micha Elena NP . 11/27/24 15:19 MICHA FONTANEZ NP Nov 27, 2024 10:12
--- NOTE | 2024-11-27 10:26 | ELECTROCARDIOGRAPH REPORT ---
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
[2024-11-27 10:36] LABS: MEAN PLATELET VOLUME 7.6 FL (7.4-10.4); RED CELL DISTRIBUTION WIDTH 12.7 % (11.5-14.5)
[2024-11-27] MEDS: hydrALAZINE 20mg/ml inj. IV ONE ×2 (10:41→11:00)
--- NOTE | 2024-11-27 10:47 | RADIOLOGY REPORT ---
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 Pleura: No effusion. No pneumothorax. Cardiomediastinal contours: Unremarkable Bones: Unremarkable IMPRESSION: Right basilar subsegmental atelectasis or scarring.
[2024-11-27] MEDS: HYDROcodone/acetaminophen 10/325mg tab PO ONE (10:50)
[2024-11-27 10:59] LABS: CREATININE 1.02 MG/DL (0.60-1.10); PRO BRAIN NATRIURETIC PEPTIDE 86 PG/ML (0-450); TOTAL CARBON DIOXIDE 24.9 MMOL/L (24-32); eCRCL 64 ML/MIN; eGFR 71 ML/MIN
[2024-11-27] MEDS ORDERED: metoprolol tartrate 1mg/ml inj IV ONE ×2 (11:15→11:30)
[2024-11-27] MEDS: morphine 4 MG/ML inj SYRINge IV ONE ×2 (11:57→14:37)
[2024-11-27] MEDS: ondansetron/PF 4mg/2ml inj IV ONE (11:57)
[2024-11-27] MEDS: cloNIDine 0.2 MG/24 HR patch (7 day patch) TD ONE (12:16)
[2024-11-27] MEDS ORDERED: potassium Cl 20 mEq SR tablet PO PRN ×2 (12:30)
[2024-11-27] MEDS ORDERED: magnesium sulf-water 2g/50mL 50 ML IV PRN (12:30)
[2024-11-27] MEDS ORDERED: ondansetron/PF 4mg/2ml inj IV PRN (12:30)
[2024-11-27] MEDS ORDERED: bisacodyl 10mg suppository rectal RC PRN (12:30)
[2024-11-27] MEDS ORDERED: magnesium Cl slow-release 64mg tablet PO PRN (12:30)
[2024-11-27] MEDS ORDERED: potassium Cl 40MEQ/1/2NS 520ml 520 ML IV PRN (12:30)
[2024-11-27] MEDS ORDERED: magnesium sulf-water 4G/100mL 100 ML IV PRN (12:30)
[2024-11-27] MEDS ORDERED: magnesium hydroxide 30ml (MOM) UD suspension PO PRN (12:30)
[2024-11-27] MEDS ORDERED: mag hydrox/Alum hydrox/simeth 30ml oral suspension PO PRN (12:30)
[2024-11-27] MEDS ORDERED: HYDROcodone/acetaminophen 5mg/325mg tablet PO PRN (12:30)
--- NOTE | 2024-11-27 17:44 | HISTORY AND PHYSICAL ---
History & Physical Providers to ~ History of Present Illness Reason for Admit\Complaint: Intractable back pain, hypertensive urgency History of Present Illness Rashad Dumont is a 74-year-old male with a past medical/surgical history of laminectomy, diskectomy, chronic lower back pain, NIDDM, hyperlipidemia, s/p cardiac stent x 2, s/p brain shunt who presented to the ED with chief complaint of chronic back pain getting worse. Patient's history is not very clear cut. he mentioned to me he came to ER because his back pain is getting worse. As per patient [facility] used to get multiple narcotic in other meds for pain control from [place]. He is not sure how long back he saw the [place] provider [id number] but he mentioned that they were giving all his medications to him and they tapered his pain medication. Patient also mentioned that he has history of PTSD for which he was taking some psych medications. Patient has history of surgery done over lower back and it appears after talking to him that patient has chronic pain Syndrome. He also mentioned to me that he gets this migraine headaches which increases his blood pressure. Further workup done in ER in his blood pressure was very uncontrolled, WBC 13.6. Hospitalist services contacted for admission for uncontrolled hypertension and management of intractable lower back pain. Patient showed signs of pain medication seeking behavior when I evaluated him in ER Allergies: Coded Allergies: No Known Allergies (Unverified , 11/24/24) Home Medications Home Medications Active Reported Motrin* (Ibuprofen) 400 Mg Tablet 400 Mg PO Q8H Tylenol (Acetaminophen) 325 Mg Tablet 1-2 Tab PO TID PRN Methocarbamol 750 Mg Tablet 1 Tab PO Q6H Lidocaine 5 % Adh..patch 7.5 Patch TOP DAILY Lidocaine 5 % Adh..patch 1 Patch TOP DAILY 30 Days [place] 5/325 MG (Acetaminophen/Hydrocodone Bitart) 5 Mg/325 Mg Tablet 1 Tab PO Q6H PRN Ondansetron Odt (Ondansetron HCl) 4 Mg Tab.rapdis 1 Tab PO Q6H PRN PRN Alavert* (Loratadine) 10 Mg Tab.rapdis 1 Tab PO DAILY Magnesium Sulfate 100 Mg Capsule [jacinta Red [place]-3] 1 Cap PO DAILY [Cosamin] 1,500 Mg PO DAILY Omeprazole 20 Mg Tab. 1 Tab PO DAILY Omeprazole 20 Mg Capsule.dr 1 Cap PO HS [Meroprolol] 25 Mg PO BID Metformin ER* (Metformin HCl) 500 Mg Tab.sr.24h 1 Tab PO Q12H Lisinopril* (Lisinopril) 40 Mg Tablet 1 Tab PO DAILY Gabapentin 600 Mg Tablet 1 Tab PO Q8H Duloxetine HCl 60 Mg Capsule.dr 1 Cap PO AM Duloxetine HCl 30 Mg Capsule.dr 1 Cap PO HS Atorvastatin Calcium 80 Mg Tablet 1 Tablet PO DAILY Aspirin 81 Mg Tab.chew 1 Tab.chew PO DAILY Amlodipine-Benazepril 5/40 MG* (Amlodipine/Benazepril HCl) 5 Mg/40 Mg Capsule 1 Cap PO BID Tylenol (Acetaminophen) 325 Mg Tablet 1-2 Tab PO QID PRN PRN Gabapentin 400 Mg Capsule 1 Cap PO Q8H 30 Days Past Medical History Past Medical History NIDDM Hyperlipidemia CAD Seizure disorder Chronic lower back pain Past Surgical History Surgical History Comment Laminectomy Diskectomy Cardiac stent x 2 (10 years ago) Cholecystectomy Tonsillectomy and adenoidectomy Brain shunt Family History Family History: Patient reports no known family medical history. Past Social History Social History Comment Alcohol: Denies Tobacco: Denies, former smoker Illicit drug use: Marijuana Living situation: [facility] alone ROS ROS Other than positives in HPI, all 14 review of systems are negative Exam Vitals: Vital Signs Date Time Temp Pulse Resp B/P (MAP) Pulse Ox O2 Delivery O2 Flow Rate FiO2 11/27/24 16:18 110/67 (81) 11/27/24 16:00 98 11/27/24 15:45 18 95 0 11/27/24 10:56 99.0 General: General-patient not in any acute distress, alert awake , chronically ill- appearing HEENT-atraumatic normocephalic, neck supple without elevated JVD, no thyromegaly or carotid bruit. No lymphadenopathy bilaterally. Eyes-no icterus or pallor seen in eyes, prefers to keep the eyes closed, poor eye contact Chest-clear to auscultation bilaterally, breathing nonlabored no tachypnea, no wheezing, no crepitation, no crackles. Heart-S1-S2 normal, regular heart rate no murmur Abdomen bowel sounds positive on auscultation, soft nondistended nontender no guarding, no rigidity Skin - well old healed scar present over lower back Neurology-grossly intact, nonfocal alert awake Extremity- no pedal edema able to move all 4 extremities Psychiatry - patient is not confused or agitated cooperated during physical examination Diagnostic Data Last Recorded Lab Results: 11/27/24 1027 11/27/24 1027 Additional Plan Patient is 74-year-old male admitted for hypertensive urgency, history of coronary artery disease status post cardiac stent placed in past, chronic cannabis use, chronic back pain, history of laminectomy diskectomy, hyperlipidemia , diabetes , h/o seizure disorder. Patient's hemoglobin A1c ( on November 25, 2024) 10.8. For hypertensive urgency antihypertensive medication started in ER and we will continue with p.o. antihypertensive medications. Patient is started on hypo and hyperglycemic protocol for uncontrolled type 2 diabetes. Started on IV fluids for mild decline in the renal function. Pain medication ordered for pain controlled. Ordered sed rate and procalcitonin. We need to get Patients CURE report in chart from pharmacy . We will continue to monitor patient's labs and vitals closely . Needs physical therapy evaluation before discharge . Code status discussed with the patient patient wishes to stay full code. Time spent in discussing code status 16 minutes. We will do home medication reconciliation once updated in electronic by nursing staff or pharmacist. Further management depending on response to treatment . I will continue to follow patient in a.m. Patient was recently admitted on November 24, 2024 and left AMA on November 25, 2024 all the cardiac workup done for the chest pain which was unremarkable. Patient's last visit records from November 2024 reviewed.Further workup done in ER in his blood pressure was very uncontrolled, WBC 13.6. Hospitalist services contacted for admission for uncontrolled hypertension and management of intractable lower back pain. Date of Service: Nov 27, 2024 Billing Provider: RILEY BURGOS MD Common Visit Codes: [id number] INP/OBS CARE (HIGH) Secondary Visit Codes: 48878-[id number] CARE PLAN 30 MINUTES RILEY BURGOS MD Nov 27, 2024 17:44
[2024-11-27] MEDS ORDERED: glucagon, human recombinant 1mg kit SUBCUT PRN (18:00)
[2024-11-27] MEDS ORDERED: DEXTROSE 15 GM of carb/4 tabs (each vial/BOTTLE has 4 tablets) PO PRN ×2 (18:00)
[2024-11-27] MEDS ORDERED: dextrose 50%-water 50ml dispensing syringe IV PRN ×2 (18:00)
[2024-11-27] MEDS: normal saline 1000ml 1,000 ML IV SCH (18:17)
[2024-11-27 18:50] LABS: URINE AMPHETAMINE SCREEN NEGATIVE (Neg); URINE BARBITUATE SCREEN NEGATIVE (Neg); URINE BENZODIAZEPINES SCREEN NEGATIVE (Neg); URINE CANNABINOID SCREEN POSITIVE (Neg); URINE COCAINE SCREEN NEGATIVE (Neg); URINE METHADONE SCREEN NEGATIVE (Neg); URINE OPIATE SCREEN POSITIVE (Neg); URINE PHENCYCLIDINE SCREEN NEGATIVE (Neg)
[2024-11-27] MEDS: HYDROcodone/acetaminophen 10/325mg tab PO PRN (19:21)
[2024-11-27 20:02] VITALS: BP 102/65; PULSE 93; RESP 16; TEMP 99.1; O2SAT 95
[2024-11-27 20:15] VITALS: RESP 16; O2SAT 95
[2024-11-27] MEDS: heparin, porcine 5000 units/ml vial SQ SCH (20:19)
[2024-11-27] MEDS: INSULIN LISPRO 100 UNIT/ML INSULN.PEN MULTI-DOSE SQ SCH (21:00)
[2024-11-28 00:13] VITALS: BP 112/53; PULSE 80; RESP 12; TEMP 96.8; O2SAT 93
[2024-11-28 06:00] VITALS: BP 119/60; PULSE 56; RESP 15; TEMP 97.4; O2SAT 96
[2024-11-28 06:15] LABS: MEAN PLATELET VOLUME 7.6 FL (7.4-10.4); RED CELL DISTRIBUTION WIDTH 12.5 % (11.5-14.5)
[2024-11-28 06:38] LABS: CREATININE 0.82 MG/DL (0.60-1.10); TOTAL CARBON DIOXIDE 28.9 MMOL/L (24-32); eCRCL 79 ML/MIN; eGFR > 90 ML/MIN
[2024-11-28 10:00] VITALS: BP_SYST 130; PULSE 77
[2024-11-28 10:47] VITALS: RESP 15; O2SAT 96
--- NOTE | 2024-11-28 17:30 | DISCHARGE SUMMARY ---
Discharge Summary Providers to CC ~ Discharge Summary Admission Diagnosis: Hypertensive urgency, intractable lower back pain, possible opioid abuse Hospital Course DATE OF ADMISSION: November 27, 2024 DATE OF DISCHARGE: November 28, 2024 PATIENT LEFT AGAINST MEDICAL ADVICE BECAUSE HE WANTED TO TAKE CARE OF HIS ANIMALS Discharge Diagnosis\Comment: Intractable back pain, hypertensive urgency resolved , history of coronary artery disease status post cardiac stent placed in past, chronic cannabis use, chronic back pain, history of laminectomy diskectomy, hyperlipidemia , poorly controlled diabetes type 2 , h/o seizure disorder. Operations\Procedures: none Consultants: none Complications: none Condition on DC: Stable Discharge Summary: Rashad Dumont is a 74-year-old male with a past medical/surgical history of laminectomy, diskectomy, chronic lower back pain, NIDDM, hyperlipidemia, s/p cardiac stent x 2, s/p brain shunt who presented to the ED with chief complaint of chronic back pain getting worse. Patient's history is not very clear cut. he mentioned to me he came to ER because his back pain is getting worse. As per patient [facility] used to get multiple narcotic in other meds for pain control from [place]. He is not sure how long back he saw the [place] provider [id number] but he mentioned that they were giving all his medications to him and they tapered his pain medication. Patient also mentioned that he has history of PTSD for which he was taking some psych medications. Patient has history of surgery done over lower back and it appears after talking to him that patient has chronic pain Syndrome. He also mentioned to me that he gets this migraine headaches which increases his blood pressure. Further workup done in ER in his blood pressure was very uncontrolled, WBC 13.6. Hospitalist services contacted for admission for uncontrolled hypertension and management of intractable lower back pain. Patient showed signs of pain medication seeking behavior when I evaluated him in ER Patient is 74-year-old male admitted for hypertensive urgency, history of coronary artery disease status post cardiac stent placed in past, chronic cannabis use, chronic back pain, history of laminectomy diskectomy, hyperlipidemia , diabetes , h/o seizure disorder. Patient's hemoglobin A1c ( on November 25, 2024) 10.8. For hypertensive urgency antihypertensive medication started in ER and we will continue with p.o. antihypertensive medications. Patient is started on hypo and hyperglycemic protocol for uncontrolled type 2 diabetes. Started on IV fluids for mild decline in the renal function. Pain medication ordered for pain controlled. Ordered sed rate and procalcitonin. We need to get Patients CURE report in chart from pharmacy . We will continue to monitor patient's labs and vitals closely . Needs physical therapy evaluation b efore discharge . Patient was recently admitted on November 24, 2024 and left AMA on November 25, 2024 all the cardiac workup done for the chest pain which was unremarkable. Patient's last visit records from November 2024 reviewed.Further workup done in ER in his blood pressure was very uncontrolled, WBC 13.6. Hospitalist services contacted for admission for uncontrolled hypertension and management of intractable lower back pain. TODAY PATIENT LEFT AGAINST MEDICAL ADVICE BECAUSE HE WANTED TO TAKE CARE OF HIS ANIMALS 11/26/24- General-patient not in any acute distress, alert awake , chronically ill-appearing HEENT-atraumatic normocephalic, neck supple without elevated JVD, no thyromegaly or carotid bruit. No lymphadenopathy bilaterally. Eyes-no icterus or pallor seen in eyes, prefers to keep the eyes closed, poor eye contact Chest-clear to auscultation bilaterally, breathing nonlabored no tachypnea, no wheezing, no crepitation, no crackles. Heart-S1-S2 normal, regular heart rate no murmur Abdomen bowel sounds positive on auscultation, soft nondistended nontender no guarding, no rigidity Skin - well old healed scar present over lower back Neurology-grossly intact, nonfocal alert awake Extremity- no pedal edema able to move all 4 extremities Psychiatry - patient is not confused or agitated cooperated during physical examination *Problems/Diagnosis: (1) Intractable low back pain Total Time Spent on D/C: Up to 30 Minutes Date of Service: Nov 28, 2024 Billing Provider: RILEY BURGOS MD Common Visit Codes: 15305-EWH/OBS DISCH DAY <30MIN RILEY BURGOS MD Nov 28, 2024 17:30
[2024-11-29] MEDS ORDERED: METF-436 PO (23:51)
[2024-11-29] MEDS ORDERED: HYDR-3965 PO (23:51)
== END 2024-11-28 10:49 | disposition left against medical advice (07) | DRG 305 ==
LOC: ER 10:08 → ED HOLD 12:35 → ORTHO 4S 18:57
PROVIDERS: ADMIT Internal Medicine; ATTEND Internal Medicine
DX: I16.0 Hypertensive urgency (principal); F43.10 Post-traumatic stress disorder, unspecified; G40.909 Epilepsy, unspecified, not intractable, without status epilepticus; G43.909 Migraine, unspecified, not intractable, without status migrainosus; G89.4 Chronic pain syndrome; I10 Essential (primary) hypertension; I25.10 Atherosclerotic heart disease of native coronary artery without angina pectoris; Z53.21 Procedure and treatment not carried out due to patient leaving prior to being seen by health care provider; E78.5 Hyperlipidemia, unspecified; E11.9 Type 2 diabetes mellitus without complications; F12.90 Cannabis use, unspecified, uncomplicated; S39.82XA Other specified injuries of lower back, initial encounter; X58.XXXA Exposure to other specified factors, initial encounter; Y93.89 Activity, other specified; Y92.89 Other specified places as the place of occurrence of the external cause; Y99.8 Other external cause status; Z87.891 Personal history of nicotine dependence; Z95.5 Presence of coronary angioplasty implant and graft; Z79.82 Long term (current) use of aspirin; Z79.899 Other long term (current) drug therapy
CPT/HCPCS: 36415; 71045; 80048; 80053; 80305; 82948; 83880; 84145; 84484; 85025; 85651; 87081; 93005; 96372; 96374; 99285; G0378; J0360; J1644; J1815; J2270; J2405; J7030

== ENCOUNTER 2024-11-29 16:36 | Emergency (ER) | payer OTHER, MEDICARE ==
[~2024-11-29] VITALS: Ht 177.8 cm; Wt 82.4 kg
[2024-11-29] MEDS: ketorolac trometh 30MG/ML vial 30 MG/ML VIAL IV ONE (17:49)
[2024-11-29 17:57] LABS: MEAN PLATELET VOLUME 7.5 FL (7.4-10.4); RED CELL DISTRIBUTION WIDTH 12.8 % (11.5-14.5)
[2024-11-29 18:18] LABS: CREATININE 1.08 MG/DL (0.60-1.10); TOTAL CARBON DIOXIDE 33.3 MMOL/L (24-32); eCRCL 60 ML/MIN; eGFR 66 ML/MIN
[2024-11-29] MEDS: metoclopramide 5 mg/ml inj IV ONE (18:30)
[2024-11-29] MEDS: normal saline 1000ml 1,000 ML IV ONE (19:04)
--- NOTE | 2024-11-29 19:05 | Physician Documentation ---
History of Present Illness Chief Complaint: Abdominal Pain w/vomiting Stated Complaint: GENERAL ILLNESS Time Seen by MD: 17:01 HPI Patient is a 74-year-old gentleman that presents via EMS for complaints of headache nausea vomiting x1 day. Patient reports he has lower back pain chroni amy and would like something for pain. reports that his biggest complaint currently is pain in his back and head. Patient reports that he has a transient gentleman and is unsure of his past medical history or what medications he currently takes. Patient does report that he takes metformin but unsure of the dose. Medication Reconciliation Allergies: Coded Allergies: No Known Allergies (Unverified , 11/24/24) Scheduled Amlodipine Besylate/Benazepril 5/40 MG* (Amlodipine-Benazepril 5/40 MG*), 1 CAP PO BID, (Reported) Aspirin (Aspirin), 1 TAB.CHEW PO DAILY, (Reported) Atorvastatin Calcium (Atorvastatin Calcium), 1 TABLET PO DAILY, (Reported) Duloxetine HCl (Duloxetine HCl), 1 CAP PO HS, (Reported) Duloxetine HCl (Duloxetine HCl), 1 CAP PO AM, (Reported) Gabapentin (Gabapentin), 1 CAP PO Q8H, (Reported) Gabapentin (Gabapentin), 1 TAB PO Q8H, (Reported) Ibuprofen* (Motrin*), 400 MG PO Q8H, (Reported) Lidocaine (Lidocaine), 1 PATCH TOP DAILY, (Reported) Lidocaine (Lidocaine), 7.5 PATCH TOP DAILY, (Reported) Lisinopril* (Lisinopril*), 1 TAB PO DAILY, (Reported) Loratadine* (Alavert*), 1 TAB PO DAILY, (Reported) Metformin Hcl* (Metformin ER*), 1 TAB PO Q12H, (Reported) Methocarbamol (Methocarbamol), 1 TAB PO Q6H, (Reported) Omeprazole (Omeprazole), 1 CAP PO HS, (Reported) Omeprazole (Omeprazole), 1 TAB PO DAILY, (Reported) [Cosamin], 1,500 MG PO DAILY, (Reported) [Meroprolol], 25 MG PO BID, (Reported) [jacinta Red [place]-3], 1 CAP PO DAILY, (Reported) Scheduled PRN Acetaminophen (Tylenol), 1-2 TAB PO QID PRN PRN for pain or fever, (Reported) Acetaminophen (Tylenol), 1-2 TAB PO TID PRN for pain or fever, (Reported) Hydrocodone Bit/Acetaminophen 5/325 MG ([place] 5/325 MG), 1 TAB PO Q6H PRN for pain, (Reported) ONDANSETRON ODT 4mg tablet (Ondansetron Odt), 1 TAB PO Q6H PRN PRN for nausea/vomiting, (Reported) Miscellaneous Medications Magnesium Sulfate (Magnesium Sulfate), (Reported) Past Medical History Past Medical History: Diabetes, Chronic Back Pain Patient History: Patient reports no known family medical history. Review of Systems ROS As stated above in the HPI, otherwise all systems are reviewed and negative. Physical Exam Vital Signs: Temperature: 98.9, Heart Rate: 114, Respiratory Rate: 18, BP: 201/97, Pulse Oximetry: 95, Weight: 82.400 Oxygen Flow Rate: 0 Physical Exam VITALS: Reviewed and as above. GENERAL: Alert, no apparent distress. HEENT: Normocephalic, atraumatic, PERRL, EOMI, dry mucosa, no erythema RESPIRATORY: Lungs clear, normal breath sounds, no respiratory distress. CHEST: No accessory muscle use, no retractions CV: Regular rate, rhythm, no edema, no murmur, No: JVD GI: Soft, non-tender, bowels sounds present, no rebound, guarding, or rigidity BACK: No CVA tenderness, or swelling MUSCULOSKELETAL No deformities, no edema SKIN: Warm and dry, no rash NEURO: Oriented x4, No motor or sensory deficit PSYCH: Normal mood and affect, no agitation Progress Results/Orders Results/Orders Orders - CURT CHANDLER * Iv Access / Saline Lock * (11/29/24 17:26) Normal Saline 1000ml (0.9% Sodium Chlori (11/29/24 19:05) Completed Orders - CURT CHANDLER Cbc/Diff (11/29/24 17:26) CMP (11/29/24 17:26) Cyclobenzaprine Tablet (Flexeril Tablet) (11/29/24 17:30) Methylprednisolone Sod Succ (Solumedrol (11/29/24 17:30) Ketorolac Trometh 30mg/Ml Vial (Toradol (11/29/24 17:30) Metoclopramide Inj (Reglan Inj) (11/29/24 18:10) Cyclobenzaprine Tablet (Flexeril Tablet) (11/29/24 18:40) Clonidine Tablet (Catapres Tablet) (11/29/24 19:00) Medications Received in ER Medications (Trade) Dose Ordered Sig/Xavier Route PRN Reason Start Time Stop Time Status Last Admin Dose Admin (Toradol inj. 30mg/ml) 30 mg ONCE ONCE IV 11/29/24 17:30 11/29/24 17:36 DC 11/29/24 17:49 30 MG (SoluMEDROL 125mg inj) 125 mg ONCE ONCE IV 11/29/24 17:30 11/29/24 17:31 DC 11/29/24 17:49 125 MG (Reglan inj) 5 mg ONCE ONCE IV 11/29/24 18:10 11/29/24 18:14 DC 11/29/24 18:30 5 MG (Flexeril tablet) 10 mg ONCE ONCE PO 11/29/24 18:40 11/29/24 18:41 DC 11/29/24 18:43 10 MG Vital Signs 11/29/24 11/29/24 11/29/24 11/29/24 16:41 17:49 18:37 18:38 Temp 98.9 Pulse 79 114 Resp 16 20 18 18 B/P (MAP) 201/69 201/97 (131) Pulse Ox 97 95 O2 Flow Rate 0 Laboratory Tests Test 11/29/24 17:44 White Blood Count 12.1 H Red Blood Count 5.07 Hemoglobin 15.5 Hematocrit 45.5 Mean Corpuscular Volume 89.6 Mean Corpuscular Hemoglobin 30.5 Mean Corpuscular Hemoglobin Concent 34.0 Red Cell Distribution Width 12.8 Platelet Count 270 Mean Platelet Volume 7.5 Neutrophils (%) (Auto) 70.5 Lymphocytes (%) (Auto) 17.3 L Monocytes (%) (Auto) 9.5 Eosinophils (%) (Auto) 1.7 Basophils (%) (Auto) 1.0 Neutrophils # (Auto) 8.5 H Lymphocytes # (Auto) 2.1 Monocytes # (Auto) 1.1 H Eosinophils # (Auto) 0.2 Basophils # (Auto) 0.1 CBC Comment Sodium Level 144 Potassium Level 4.1 Chloride Level 106 Carbon Dioxide Level 33.3 H Anion Gap 5 L Blood Urea Nitrogen 29 H Creatinine 1.08 Estimated GFR/1.73 m2 66 BUN/Creatinine Ratio 26.9 H Glucose Level 350 H Calcium Level 8.8 Total Bilirubin 0.9 Aspartate Amino Transf (AST/SGOT) 25 Alanine Aminotransferase (ALT/SGPT) 29 Alkaline Phosphatase 108 Total Protein 6.8 Albumin 3.7 Globulin 3.1 Albumin/Globulin Ratio 1.2 Chemistry Comments Medical Decision Making Findings This patient presents with back pain most consistent with lumbosacral pain. Differential diagnoses includes lumbago versus musculoskeletal spasm / strain versus sciatica. Less likely sciatica as straight leg raise test was negative. No back pain red flags on history or physical. Presentation not consistent with malignancy (lack of history of malignancy, lack of B symptoms), fracture (no trauma, no bony tenderness to palpation), cauda equina (no bowel or urinary incontinence/retention, no saddle anesthesia, no distal weakness), AAA, viscus perforation, osteomyelitis or epidural abscess (no IVDU, vertebral tenderness), renal colic, pyelonephritis (afebrile, no CVAT, no urinary symptoms). Given the clinical picture, no indication for imaging at this time. Patient has concurrent elevated glucose with his presentation today. Patient reports that he normally takes metformin but he does not have access any of his medications at this time. Patient was given 1000 mg of metformin today to treat an elevated glucose of greater than 350. A prescription for metformin will be sent over to the pharmacy with the patient's continuous pickling line pickler tomorrow. Patient will follow up with the [facility] walk-in clinic or [facility] walk-in clinic. Patient will return to the emergency department if he has any worsening of his current symptoms or any additional concerning symptoms that we discussed here today i.e. increased pain numbness and tingling in lower extremities inc ontinence of urine or bowel or any other concerning symptoms. Differential Dx:Considerations: Include: AAA, Angina/[place], Aortic dissection, Appendicitis, Bowel obstruction, Cholangitis, Cholelithasis, Constipation, Diverticular disease, Esophageal rupture, Esophagitis, Gastritis/PUD, Gastroenteritis, GI hemorrhage, Hernia, Hepatitis, Inflammatory BD, Ischemic mahamed wel, Pancreatitis, Porphyria, Testicular torsion, Trauma, intraabdominal, Urinary obstruction, Urinary tract infection, Urolithiasis, Other Departure Disposition: 01 HOME / SELF CARE / HOMELESS Impression: Primary Impression: Lumbosacral pain Additional Impression: Chronic back pain Condition: Stable Discharge Instructions: Chronic Back Pain, [id number] Additional Instructions: This patient presents with back pain most consistent with lumbosacral pain. Differential diagnoses includes lumbago versus musculoskeletal spasm / strain versus sciatica. Less likely sciatica as straight leg raise test was negative. No back pain red flags on history or physical. Presentation not consistent with malignancy (lack of history of malignancy, lack of B symptoms), fracture (no trauma, no bony tenderness to palpation), cauda equina (no bowel or urinary incontinence/retention, no saddle anesthesia, no distal weakness), AAA, viscus perforation, osteomyelitis or epidural abscess (no IVDU, vertebral tenderness), renal colic, pyelonephritis (afebrile, no CVAT, no urinary symptoms). Given the clinical picture, no indication for imaging at this time. Patient has concurrent elevated glucose with his presentation today. Patient reports that he normally takes metformin but he does not have access any of his medications at this time. Patient was given 1000 mg of metformin today to treat an elevated glucose of greater than 350. A prescription for metformin will be sent over to the pharmacy with the patient's continuous pickling line pickler tomorrow. Patient will follow up with the [facility] walk-in clinic or [facility] walk-in clinic. Patient will return to the emergency department if he has any worsening of his current symptoms or any additional concerning symptoms that we discussed here today i.e. increased pain numbness and tingling in lower extremities incontinence of urine or bowel or any other concerning symptoms. Referrals: NO PRIMARY CARE PROVIDER (PCP) Prescriptions Hydrocodone Bit/Acetaminophen 5/325 MG ([place] 5/325 MG) 5 Mg/325 Mg Tablet 1 TAB PO Q6H PRN for pain for 3 Days, #12 TAB Prov: CURT CHANDLER 11/29/24 Metformin Hcl (METFORMIN HCL) 500 Mg Tablet 1 TAB PO Q12H for 30 Days, #60 TAB 0 Refills Prov: CURT CHANDLER 11/29/24 Education Educated: Patient Educated regarding: diagnosis, treatment, need for follow up Signature Scribe Signature: A Attestation: Scribed for Curt Chandler by DANIE Reynaga . 11/29/24 23:53 CURT CHANDLER [facility] Nov 29, 2024 19:05
[2024-11-29 19:27] LABS: ABG BASE EXCESS 0.1 mmol/L (-2.0-3.0); ABG HCO3 23.7 mmol/L (21.0-28.0); ABG OXYGEN SATURATION 96.4 % (94.0-98.0); ABG PCO2 (T) 36.1 mmHg (35.0-48.0); ABG PH (T) 7.436 (7.350-7.450); ABG PO2 (T) 82.9 mmHg (83.0-108.0); ALLEN'S TEST POSITIVE; FCOHb 1.2 % (0.5-1.5); FHHb 3.6 % (0.0-5.0); FIO2 21.0 mmHg/%; FMetHb 0.1 % (0.0-1.5); FO2Hb 95.1 % (94.0-98.0); MODE ROOM AIR; PATIENT TEMPERATURE 37.2; TOTAL HEMOGLOBIN 16.0 G/dl (13.5-17.5)
[2024-11-29 20:31] VITALS: BP 173/99; PULSE 106; O2SAT 95
[2024-11-29 20:39] VITALS: RESP 16
[2024-11-29] MEDS: HYDROcodone/acetaminophen 10/325mg tab PO ONE (20:39)
[2024-11-29] MEDS ORDERED: HYDR-3965 PO (23:51)
[2024-11-29] MEDS ORDERED: METF-436 PO (23:51)
[2024-11-30 00:04] VITALS: TEMP 98.9
== END 2024-11-30 00:15 | disposition home or self-care (01) ==
LOC: ER 16:37
DX: G89.29 Other chronic pain (principal); M54.50 Low back pain, unspecified; R51.9 Headache, unspecified; R11.2 Nausea with vomiting, unspecified; E11.9 Type 2 diabetes mellitus without complications
CPT/HCPCS: 36415; 36600; 80053; 82803; 82948; 85018; 85025; 96361; 96374; 96375; 99284; J1885; J2765; J2919; J7030; A4628

== ENCOUNTER 2025-01-27 14:01 | Inpatient (IN) | payer OTHER, MEDICARE ==
[~2025-01-27] VITALS: Ht 177.8 cm; Wt 78.5 kg
[~2025-01-27 14:01] MED LIST changes: +METF-436 PO
--- NOTE | 2025-01-27 14:17 | ELECTROCARDIOGRAPH REPORT ---
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 GIGI Robertson Measurements Intervals [place] Rate: 116 P: 73 MA: 183 QRS: -33 QRSD: 78 T: 8 QT: 333 QTc: 463 Interpretive Statements Sinus tachycardia Inferior infarct, old Electronically Signed On 01-30-2025 19:22:[address] GIGI Robertson Please click the below link to view image of tracing.
[2025-01-27 14:43] LABS: MEAN PLATELET VOLUME 7.7 FL (7.4-10.4); RED CELL DISTRIBUTION WIDTH 12.8 % (11.5-14.5)
--- NOTE | 2025-01-27 15:01 | RADIOLOGY REPORT ---
EXAM: DI CHEST,SINGLE VIEW CLINICAL HISTORY: CP TECHNIQUE: Single AP view of the chest WID: COMPARISON: DI CHEST,SINGLE VIEW on DOS: 11/27/24 FINDINGS: Lines and tubes: [employer] shunt catheter tubing projects over the right neck and chest and right upper abdomen. Chest: The heart size and pulmonary vasculature is within normal limits. Calcified plaque projects over the aortic arch. No pleural effusion, pneumothorax, or consolidation. The osseous structures are grossly intact. IMPRESSION: 1. No acute cardiopulmonary abnormality.
[2025-01-27 15:05] LABS: CREATININE 0.98 MG/DL (0.60-1.10); PRO BRAIN NATRIURETIC PEPTIDE 2736 PG/ML (0-450); TOTAL CARBON DIOXIDE 28.0 MMOL/L (24-32); eCRCL 66 ML/MIN; eGFR 74 ML/MIN
--- NOTE | 2025-01-27 15:17 | Physician Documentation ---
History of Present Illness ~ Chief Complaint: Chest Pain Stated Complaint: CP Time Seen by MD: 14:40 OK to notify your PCP?: Yes Source: patient Mode of Arrival: EMS Exam Limitations: no limitations HEART Score: 6 HPI 74-year-old male with chief complaint chest pain that started yesterday. He states was just sitting there doing nothing when the pain started. He decided to call 911 today since the pain had persisted. In route he got nitro and he states I think it did. He states he had a heart catheterization a few years ago at [facility] which resulted in at least one stent being placed. He then relocated to [place] and he is followed at the [facility]. He states "I do not think I am on blood thinner. He states he has had multiple lower back surgeries in his having a lot of pain in his lower back. He denies mid back pain, abdominal pain. Medication Reconciliation Allergies: Coded Allergies: No Known Allergies (Unverified , 11/24/24) Scheduled Amlodipine Besylate/Benazepril 5/40 MG* (Amlodipine-Benazepril 5/40 MG*), 1 CAP PO BID, (Reported) Aspirin (Aspirin), 1 TAB.CHEW PO DAILY, (Reported) Atorvastatin Calcium (Atorvastatin Calcium), 1 TABLET PO DAILY, (Reported) Duloxetine HCl (Duloxetine HCl), 1 CAP PO HS, (Reported) Duloxetine HCl (Duloxetine HCl), 1 CAP PO AM, (Reported) Gabapentin (Gabapentin), 1 CAP PO Q8H, (Reported) Gabapentin (Gabapentin), 1 TAB PO Q8H, (Reported) Ibuprofen* (Motrin*), 400 MG PO Q8H, (Reported) Lidocaine (Lidocaine), 1 PATCH TOP DAILY, (Reported) Lidocaine (Lidocaine), 7.5 PATCH TOP DAILY, (Reported) Lisinopril* (Lisinopril*), 1 TAB PO DAILY, (Reported) Loratadine* (Alavert*), 1 TAB PO DAILY, (Reported) Metformin Hcl (Metformin Hcl), 1 TAB PO Q12H Metformin Hcl* (Metformin ER*), 1 TAB PO Q12H, (Reported) Methocarbamol (Methocarbamol), 1 TAB PO Q6H, (Reported) Omeprazole (Omeprazole), 1 CAP PO HS, (Reported) Omeprazole (Omeprazole), 1 TAB PO DAILY, (Reported) [Cosamin], 1,500 MG PO DAILY, (Reported) [Meroprolol], 25 MG PO BID, (Reported) [jacinta Red [place]-3], 1 CAP PO DAILY, (Reported) Scheduled PRN Acetaminophen (Tylenol), 1-2 TAB PO QID PRN PRN for pain or fever, (Reported) Acetaminophen (Tylenol), 1-2 TAB PO TID PRN for pain or fever, (Reported) Hydrocodone Bit/Acetaminophen 5/325 MG ([place] 5/325 MG), 1 TAB PO Q6H PRN for pain, (Reported) ONDANSETRON ODT 4mg tablet (Ondansetron Odt), 1 TAB PO Q6H PRN PRN for nausea/vomiting, (Reported) Miscellaneous Medications Magnesium Sulfate (Magnesium Sulfate), (Reported) Past Medical History Past Medical History: Diabetes, Chronic Back Pain Patient History: Patient reports no known family medical history. Smoking Status: Never smoker Review of Systems All Other Systems at this time: Reviewed and Negative Physical Exam Vital Signs: Temperature: 98.2, Source: Oral, Heart Rate: 113, Respiratory Rate: 22, BP: 166/100, Pulse Oximetry: 97, Weight: 72.570 Physical Exam GENERAL: Alert, mild distress rocking back and forth due to report of back pain. HEENT: NCAT, EOMI, PERRL, normal oropharynx, moist oral mucosa. NECK: Supple, trachea midline. CARDIAC: Regular rate and rhythm, no murmurs, rubs, or gallops. Equal distal pulses. No lower extremity edema, cap refill less than 2 seconds. RESPIRATORY: Equal breath sounds, clear to auscultation bilaterally, no respiratory distress. GASTROINTESTINAL: Non distended, soft, nontender, No guarding or rebound. MUSCULOSKELETAL: Tenderness over lumbar paraspinal muscles, no midline tenderness, no tenderness over the Thoracic area. Normal range of motion, nontender, no swelling. Normal gait. NEUROLOGICAL: Awake, alert, and oriented x 3. SKIN: Warm/dry, no pallor, no rash. PSYCH: Alert and appropriate. Affect congruent with mood. Speech is clear. Good eye contact. Progress Results/Orders Results/Orders Orders - SHIREEN WATSON Hospitalist (01/27/25 15:18) Vital Signs 01/27/25 01/27/25 01/27/25 14:14 14:47 14:48 Temp 98.2 Pulse 113 113 Resp 28 22 B/P (MAP) 166/100 (122) Pulse Ox 96 97 Laboratory Tests Test 01/27/25 14:18 01/27/25 15:26 White Blood Count 14.0 H Red Blood Count 5.28 Hemoglobin 15.7 Hematocrit 47.0 Mean Corpuscular Volume 88.9 Mean Corpuscular Hemoglobin 29.8 Mean Corpuscular Hemoglobin Concent 33.5 Red Cell Distribution Width 12.8 Platelet Count 299 Mean Platelet Volume 7.7 Neutrophils (%) (Auto) 87.6 H Lymphocytes (%) (Auto) 7.6 L Monocytes (%) (Auto) 4.2 Eosinophils (%) (Auto) 0 Basophils (%) (Auto) 0.6 Neutrophils # (Auto) 12.3 H Lymphocytes # (Auto) 1.1 Monocytes # (Auto) 0.6 Eosinophils # (Auto) 0.0 Basophils # (Auto) 0.1 CBC Comment Coagulation Comments Sodium Level 136 Potassium Level 4.2 Chloride Level 97 L Carbon Dioxide Level 28.0 Anion Gap 11 Blood Urea Nitrogen 17 Creatinine 0.98 Estimated GFR/1.73 m2 74 BUN/Creatinine Ratio 17.3 Glucose Level 388 H Calcium Level 8.8 Troponin I High Sensitivity 3371 *H Pro-B-Type Natriuretic Peptide 2736 H Albumin 4.1 Chemistry Comments Urine Specimen Description Urinal Urine Color Straw Urine Clarity Clear Urine pH 6.0 Urine Specific [employer] 1.015 Urine Protein 30 H Urine Glucose (UA) >=1000 H Urine Ketones 40 H Urine Occult Blood Moderate H Urine Nitrite Negative Urine Bilirubin Negative Urine Urobilinogen 0.2 Urine Leukocyte Esterase Negative Urine RBC 0-2 Urine WBC 0-4 Urine Squamous Epithelial Cells None seen Urine Bacteria None seen Urine Mucus None seen Urine Culture Indicated Not ind Volume Urine Centrifuged 10 ml Urine Comment Urine Opiates Screen Negative Urine Methadone Screen Negative Urine Fentanyl Screen Negative Urine Barbiturates Screen Negative Urine Phencyclidine Screen Negative Urine Amphetamines Screen Negative Urine Benzodiazepines Screen Negative Urine Cocaine Screen Negative Urine Cannabinoids Screen Positive Drug Screen Comment Heart Score: Heart Score Response (Comments) Value History Moderate Suspicious 1 EKG Normal 0 Age >65 2 Risk Factors 1 or 2 risk factors 1 Troponin >3 x's Normal limit 2 Total 6 Medical Decision Making Additional information obtaine: N/A Findings n/a Heart Score: 6 Differential Dx:Considerations: Include: angina, aortic dissection, chest wall pain, cholelithiasis, CHF, costochondritis, esophageal reflux/spasm, gastritis, herpes zoster, myocardial infarction, pericarditis, pleuritis, pancreatitis, pneumonia, pneumothorax, pulmonary embolus, other Additional Information Patient's back pain an elevated troponin causing her think about a dissection however patients pain is reproducible with palpation of the lumbar paraspinal muscles and states it is exactly the same experienced with his lower back pain. Departure Time of Disposition: 15:16 Admitted to Inpatient Unit: to hospitalist Impression: Primary Impression: Chest pain Qualified Codes: R07.9 - Chest pain, unspecified Additional Impressions: NSTEMI (non-ST elevated myocardial infarction) Low back pain Qualified Codes: M54.50 - Low back pain, unspecified; G89.29 - Other chronic pain Condition: Fair Referrals: NO PRIMARY CARE PROVIDER (PCP) Education Educated: Patient Educated regarding: diagnosis, treatment, need for follow up Signature Scribe Signature: x Attestation: SHIREEN Spence Jan 27, 2025 15:17
[2025-01-27] MEDS ORDERED: mag hydrox/Alum hydrox/simeth 30ml oral suspension PO PRN (15:35)
[2025-01-27] MEDS ORDERED: potassium Cl 40MEQ/1/2NS 520ml 520 ML IV PRN (15:35)
[2025-01-27] MEDS ORDERED: magnesium Cl slow-release 64mg tablet PO PRN (15:35)
[2025-01-27] MEDS ORDERED: magnesium sulf-water 2g/50mL 50 ML IV PRN (15:35)
[2025-01-27] MEDS ORDERED: magnesium sulf-water 4G/100mL 100 ML IV PRN (15:35)
[2025-01-27] MEDS ORDERED: potassium Cl 20 mEq SR tablet PO PRN ×2 (15:35)
[2025-01-27] MEDS ORDERED: heparin 10,000 units/1 ML INJ IV PRN (15:50)
[2025-01-27 15:52] LABS: LEUKOCYTE ESTERASE ,URINE NEGATIVE (Neg); NITRITES, URINE NEGATIVE (Neg); OCCULT BLOOD,URINE MODERATE (Neg)
[2025-01-27 15:53] LABS: UA COLLECTION TYPE URINAL
[2025-01-27 15:58] LABS: MUCUS STRANDS NONE SEEN /LPF (Neg); SQUAMOUS EPITHELIAL CELL,UR NONE SEEN /LPF (FEW)
[2025-01-27 16:09] LABS: URINE AMPHETAMINE SCREEN NEGATIVE (Neg); URINE BARBITUATE SCREEN NEGATIVE (Neg); URINE BENZODIAZEPINES SCREEN NEGATIVE (Neg); URINE CANNABINOID SCREEN POSITIVE (Neg); URINE COCAINE SCREEN NEGATIVE (Neg); URINE METHADONE SCREEN NEGATIVE (Neg); URINE OPIATE SCREEN NEGATIVE (Neg); URINE PHENCYCLIDINE SCREEN NEGATIVE (Neg)
[2025-01-27] MEDS: HYDROcodone/acetaminophen 10/325mg tab PO ONE (16:16)
[2025-01-27] MEDS: heparin 10,000 units/1 ML INJ IV ONE (16:21)
[2025-01-27] MEDS: heparin 25,000 UNIT/250ml bag 250 ML IV PRN (16:22)
[2025-01-27] MEDS: MESSAGE TO NURSING IV ONE (16:22)
[2025-01-27] MEDS: HEPARIN DRIP-CARDIAC**PHARMACIST-TO-DOSE IV ONE (16:22)
[2025-01-27 16:25] LABS: APTT 27 SECONDS (22-32); INR 1.0 INR
[2025-01-27] MEDS: PERFLUTREN PROTEIN-A MICROSPHR (Optison) 0.22 MG/ML 3ML VIAL IV ONE (17:14)
[2025-01-27] MEDS ORDERED: dextrose 50%-water 50ml dispensing syringe IV PRN ×2 (17:30)
[2025-01-27] MEDS ORDERED: glucagon, human recombinant 1mg kit SUBCUT PRN (17:30)
[2025-01-27] MEDS ORDERED: DEXTROSE 15 GM of carb/4 tabs (each vial/BOTTLE has 4 tablets) PO PRN ×2 (17:30)
[2025-01-27] MEDS: ondansetron/PF 4mg/2ml inj IV PRN (17:36)
[2025-01-27] MEDS ORDERED: midazolam 1 mg/ML 2ml injection ONE ×6 (17:43→19:28)
[2025-01-27] MEDS ORDERED: verapamil 2.5 mg/ml inj IV ONE (17:43)
[2025-01-27] MEDS ORDERED: fentaNYL/PF 50MCG/1 ML 2ML syringe ONE ×2 (17:43→18:26)
[2025-01-27] MEDS ORDERED: iohexol 350 MG/ML 50ML vial IV ONE (17:43)
[2025-01-27] MEDS ORDERED: heparin 1,000unit/ml 10ml vial 10 ML ONE (17:43)
[2025-01-27] MEDS ORDERED: LIDOcaine 1% (10mg/ml) 2ml vial ONE (17:43)
[2025-01-27 17:44] LABS: CHOL/HDL RATIO 6.0 (0.00-4.99); LDL CHOLESTEROL 204 MG/DL (50-100)
[2025-01-27] MEDS ORDERED: nitroGLYCERIN 500mcg/5mL D5W 0 ML IV ONE (17:44)
[2025-01-27] MEDS ORDERED: LIDOcaine 1% 30ml preserv. free vial ONE (17:50)
[2025-01-27] MEDS ORDERED: phenylephrine 10mg/ml inj. ONE (18:36)
--- NOTE | 2025-01-27 18:58 | HISTORY AND PHYSICAL-Residence ---
History & Physical Providers to CC Resident Creating Document: ALPHONSE DENIS RES ~ History of Present Illness Reason for Admit\Complaint: Chest pain and back pain History of Present Illness This is a 74-year-old male with past medical history of diabetes mellitus type 2, hypertension, coronary artery disease s/p stent presented in ER with complain of chest pain and back pain. Patient reports that three days ago he experienced chest pain on the on upper right side of the chest, which is dull, 9/10 in intensity, radiating to right arm and neck. He reports that pain was started suddenly while he was sleeping and and reports chest pain only on rest. He also complains of nausea and vomiting and reports that vomiting is about 10 times a day since 3 days , describes it as coffe ground, due to vomiting he can not eat and drink. In addition to that he is also complaining of right lower back pain for the past three days which is 10/10,radiating to right leg, walking makes the pain worse. Allergies: Coded Allergies: No Known Allergies (Unverified , 11/24/24) Home Medications Home Medications Active Metformin Hcl 500 Mg Tablet 1 Tab PO Q12H 30 Days Reported Motrin* (Ibuprofen) 400 Mg Tablet 400 Mg PO Q8H Tylenol (Acetaminophen) 325 Mg Tablet 1-2 Tab PO TID PRN Methocarbamol 750 Mg Tablet 1 Tab PO Q6H Lidocaine 5 % Adh..patch 7.5 Patch TOP DAILY Lidocaine 5 % Adh..patch 1 Patch TOP DAILY 30 Days [place] 5/325 MG (Acetaminophen/Hydrocodone Bitart) 5 Mg/325 Mg Tablet 1 Tab PO Q6H PRN Ondansetron Odt (Ondansetron HCl) 4 Mg Tab.rapdis 1 Tab PO Q6H PRN PRN Alavert* (Loratadine) 10 Mg Tab.rapdis 1 Tab PO DAILY Magnesium Sulfate 100 Mg Capsule [jacinta Red Kerk[place]oven-3] 1 Cap PO DAILY [Cosamin] 1,500 Mg PO DAILY Omeprazole 20 Mg Tab.rap.dr 1 Tab PO DAILY Omeprazole 20 Mg Capsule.dr 1 Cap PO HS [Meroprolol] 25 Mg PO BID Metformin ER* (Metformin HCl) 500 Mg Tab.sr.24h 1 Tab PO Q12H Lisinopril* (Lisinopril) 40 Mg Tablet 1 Tab PO DAILY Gabapentin 600 Mg Tablet 1 Tab PO Q8H Duloxetine HCl 60 Mg Capsule. 1 Cap PO AM Duloxetine HCl 30 Mg Capsule.dr 1 Cap PO HS Atorvastatin Calcium 80 Mg Tablet 1 Tablet PO DAILY Aspirin 81 Mg Tab.chew 1 Tab.chew PO DAILY Amlodipine-Benazepril 5/40 MG* (Amlodipine/Benazepril HCl) 5 Mg/40 Mg Capsule 1 Cap PO BID Tylenol (Acetaminophen) 325 Mg Tablet 1-2 Tab PO QID PRN PRN Gabapentin 400 Mg Capsule 1 Cap PO Q8H 30 Days Past Medical History Past Medical History Coronary artery disease s/p stent Diabetes mellitus type 2 Hypertension Past Surgical History Surgical History Comment Cholecystectomy Appendectomy Hydrocephalus, shunt was placed Two laminectomy and one disectomy Bilateral arm surgeries Family History Family History: Patient reports no known family medical history. Past Social History Social History Comment Smokes marijuana about once a week since 20 years Quit smoking in 1970 before that used to smoke a pack a day. Quit alcohol 20-30 years ago. Lives in home alone with four dogs and nine birds. [facility] ROS All Other Systems: Reviewed and Negative ROS Constitutional: No fever, chills, dizziness, weight gain or loss Eyes: No pain, erythema, discharge, blurring of vision ENT: No sore throat, epistaxis, tinnitus Cardiovascular: no Shortness of breath.palpitations, syncope, lower extremity edema, paroxysmal nocturnal dyspnea Reports chest pain Respiratory: no Shortness of breath and cough present, No hemoptysis Gastrointestinal: no diarrhea, constipation, hematemesis, abdominal pain, bloating, melena or fresh blood Reports vomiting and nausea Musculoskeletal:no joint pain, no deformities Integumentary: No change in skin, hair, nails. No swelling, bruising, abrasions Neurologic: No headache, neck pain, numbness or tingling of the extremities, weakness Psychiatric: No delusions, depression, loss of interest in normal activity or change in sleep pattern, hallucinations, suicidal ideations Endocrine: No fatigue, weakness, polydipsia, polyuria, heat or cold intolerance, dry skin Hematological: No bleeding, petechiae, bruising Allergies: No asthma or urticaria Exam Vitals: Vital Signs Date Time Temp Pulse Resp B/P (MAP) Pulse Ox O2 Delivery O2 Flow Rate FiO2 01/27/25 17:02 98.2 112 17 157/104 (121) 90 General: General: awake, alert oriented to place, time, and person HEENT: No pallor present, no icterus, moist mucous membranes Neck: No masses and tenderness Resp: Unlabored. Lungs clear to auscultation bilaterally. Chest: Normal expansion. Cardiovascular: HR elevated and regular rhythm, normal S1 and S2 without murmur, rub or gallop Abdomen: Soft and non tender in epigastrium, no organomegaly, no guarding and rigidity, bowel sounds present Reports severe back pain on right side. Neuro: No focal weakness in the upper muscles, power of the muscles 5/5 bilateral upper extremities,normal reflexes bilaterally. Cranial nerves intact Right lower extremity examination could not be performed as he reports pain in lower back with elevation. Extremities: No cyanosis,clubbing or edema Skin: Warm and Dry. Psych: Normal affect Diagnostic Data Last Recorded Lab Results: 01/27/25 1418 01/27/25 1418 Diagnostic Data: Laboratory Tests Test 01/27/25 14:18 Prothrombin Time 10.7 SECONDS (9.0-12.0) INR International Normalized Ratio 1.0 INR Activated Partial Thromboplast Time 27 SECONDS (22-32) Coagulation Comments Advance Care Planning Advanced Care plannin - 30 Minutes Additional Plan This is a 74-year-old male presented in ER with complain of chest pain and lower back pain. NSTEMI Tropsx 3371, 7512, 34226 EKG shows sinus tachycardia, no ST elevation or depression, normal axis, ME within reference range. Received aspirin 325 mg, atorvastatin 80 mg and metoprolol 50 mg On heparin drip Follow up with the echo Consult Dr. Martinez awaiting recommendations. Coronary artery disease s/p stent Aspirin 81 mg LDL 204,cholesterol 254 Goal of LDL less than 70 Atorvastatin 40 mg Uncontrolled Type 2 diabetes mellitus HbA1c 10.3 On moderate dose supplemental insulin protocol. Upper GI bleed Patient reports coffee-ground color vomiting H&H is stable Occult blood stool Consult GI Back pain Patient reports severe right lower lumbar pain. Will order MRI lumbar spine once patient is stabilized. Hypertension Awaiting med rec Administered one dose of amlodipine 10mg Substance use disorder UA positive for cannabinoids Substance use navigator consulted Social Service consulted Code status: Full code DVT prophylaxis: On heparin drip GI prophylaxis: pantoprazole 40 mg IV BID Disposition: Patient troponins are trending upward on heparin drip, consult room cleaner awaiting recommendation. Date of Service: Jan 27, 2025 Billing Provider: CHACE BRIONES MD Common Visit Codes: [id number] INP/OBS CARE (HIGH) Secondary Visit Codes: [id number] CARE PLAN 30 MINUTES ALPHONSE DENIS, RES Jan 27, 2025 18:58 CHACE BRIONES MD Jan 29, 2025 08:01
[2025-01-27] MEDS ORDERED: tirofiban 12.5mg in NS 250mL 250 ML IV ONE (19:06)
[2025-01-27] MEDS ORDERED: clopidogrel 300mg tablet ONE (19:25)
[2025-01-27 20:15] VITALS: BP 90/52; PULSE 75; RESP 21; TEMP 97.7; O2SAT 92
[2025-01-27] MEDS: docusate sod 100mg capsule PO SCH (20:20)
[2025-01-27] MEDS ORDERED: ondansetron/PF 4mg/2ml inj IV PRN (20:45)
[2025-01-27] MEDS ORDERED: HYDROcodone/acetaminophen 5mg/325mg tablet PO PRN ×2 (20:45→20:55)
[2025-01-27] MEDS ORDERED: ondansetron 4mg rapidly disintigrating tab PO PRN (20:55)
[2025-01-27] MEDS ORDERED: duloxetine 30mg CAPSULE.DR PO SCH (20:55)
[2025-01-27] MEDS: duloxetine 30mg CAPSULE.DR PO SCH (21:00)
[2025-01-27] MEDS ORDERED: non-formulary drug (Omeprazole 1 CAP) PO SCH (21:00)
[2025-01-27] MEDS: midazolam 1 mg/ML 2ml injection IV PRN (21:16)
[2025-01-27] MEDS: INSULIN LISPRO 100 UNIT/ML INSULN.PEN MULTI-DOSE SQ SCH (22:36)
[2025-01-27 23:10] VITALS: BP 82/50; PULSE 86; RESP 24; O2SAT 93
[2025-01-27] MEDS: OLANZapine **IM** 10 mg inj. IM ONE (23:58)
[2025-01-28] VITALS (38 sets, daily range): BP systolic 71–144; BP diastolic 40–85; PULSE 52–90; RESP 10–27; O2SAT 93–100
--- NOTE | 2025-01-28 00:39 | RADIOLOGY REPORT ---
CHEST RADIOGRAPH Indication: pulmonary edema Technique: Single frontal view of the chest was obtained COMPARISON: DI CHEST,SINGLE VIEW on DOS: 01/27/25, DI CHEST,SINGLE VIEW on DOS: 11/27/24, DI CHEST,SINGLE VIEW on DOS: 11/24/24 FINDINGS: Lines and Tubes: Ventriculoperitoneal shunt tubing traverses the right neck and hemithorax. Lungs: Clear Pleura: No effusion. No pneumothorax. Cardiomediastinal contours: Unremarkable Bones: Unremarkable IMPRESSION: 1. No radiographic evidence of acute cardiopulmonary abnormality.
[2025-01-28 00:45] LABS: MEAN PLATELET VOLUME 7.6 FL (7.4-10.4); RED CELL DISTRIBUTION WIDTH 13.0 % (11.5-14.5)
[2025-01-28 00:56] LABS: CREATININE 1.76 MG/DL (0.60-1.10); PHOSPHORUS 5.6 MG/DL (2.3-4.5); TOTAL CARBON DIOXIDE 19.9 MMOL/L (24-32); eCRCL 37 ML/MIN; eGFR 38 ML/MIN
[2025-01-28] MEDS: ibuprofen tablet 400 MG TABLET PO SCH (01:02)
[2025-01-28] MEDS: K and/or MAG REPLACEMENT MC SCH (01:02)
[2025-01-28 01:15] LABS: ABG BASE EXCESS -8.1 mmol/L (-2.0-3.0); ABG HCO3 16.8 mmol/L (21.0-28.0); ABG OXYGEN SATURATION 91.5 % (94.0-98.0); ABG PCO2 (T) 32.9 mmHg (35.0-48.0); ABG PH (T) 7.327 (7.350-7.450); ABG PO2 (T) 66.0 mmHg (83.0-108.0); ALLEN'S TEST Modified; FCOHb 1.2 % (0.5-1.5); FHHb 8.4 % (0.0-5.0); FIO2 21.0 mmHg/%; FMetHb 0.3 % (0.0-1.5); FO2Hb 90.1 % (94.0-98.0); MODE ROOM AIR; PATIENT TEMPERATURE 37.0; TOTAL HEMOGLOBIN 13.3 G/dl (13.5-17.5)
[2025-01-28] MEDS: NORepinephrine 8mg/ 250ml NS 250 ML IV SCH (01:35)
[2025-01-28] MEDS: dexmedetomidin/NS 400mcg/100ml 100 ML IV PRN (02:26)
[2025-01-28] MEDS ORDERED: sodium bicarbonate 1meq/ml inj 150 ML in dextrose 5%-water 1,000 ML IV SCH (02:40)
[2025-01-28] MEDS: sodium bicarbonate (8.4%) 1 mEq/ml syringe IV ONE (03:04)
[2025-01-28] MEDS: etomidate 2mg/ml inj. IV ONE (03:47)
[2025-01-28] MEDS: rocuronium 10mg/ml inj IV ONE (03:47)
[2025-01-28] MEDS: propofol 1000mg/100ml bottle 100 ML IV ONE (03:50)
[2025-01-28] MEDS: propofol 1000mg/100ml bottle 100 ML IV SCH ×2 (03:50→10:05)
[2025-01-28] MEDS: ringers solution, lacted 1,000 ML IV ONE ×2 (03:58→11:50)
--- NOTE | 2025-01-28 04:03 | PROGRESS NOTE ---
Progress Note Dictate Providers to CC ~chest pain Progress Note: Patient presented to the ED with chest pain. Diagnosed to have NSTEMI. as per my reports from the resident team and the nursing , patient underwent coronary angiogram and TERRI was placed in circum flex. patient was noted to be hypotensive post procedure so was transferred to ICU for further care. Central Line/PICC still needed: Yes Antibiotic Ordered?: No Objective Vitals Vital Signs Date Time Temp Pulse Resp B/P (MAP) Pulse Ox O2 Delivery O2 Flow Rate FiO2 01/28/25 03:20 22 01/28/25 02:56 68 72/47 (55) 98 Nasal Cannula 2.0 01/28/25 02:00 96.6 Lab Results: 01/28/25 0025 01/28/25 0025 Coagulation Studies Laboratory Tests Test 01/27/25 14:18 01/27/25 23:41 Prothrombin Time 10.7 SECONDS (9.0-12.0) INR International Normalized Ratio 1.0 INR Activated Partial Thromboplast Time 27 SECONDS (22-32) APTT (Heparin Protocol) 106 SECONDS (45-60) *H Coagulation Comments Assessment/Plan Assessment Shock suspect cardiogenic shock vs hypovolemia - patient recieved one L fluid bolus on arrival to ICU, patient BP imrpoved. MAP >65 - ordered levophed to keep MAP >65 - recommend a line and central line placement. I spoke to the nurse and also requested the resident to place central line and ana - repeat HB is >12. less likely bleeding - continue dapt treatment - echo pending - connect flow track to a line to monitor cardiac index - intial lactate was 9.1. - concerning. 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
[2025-01-28] MEDS: FENTANYL-0.9 % NACL/PF 100 ML IV SCH (04:23)
[2025-01-28] MEDS: FENTANYL-0.9 % NACL/PF 100 ML ONE (04:24)
[2025-01-28 05:43] LABS: ABG BASE EXCESS -0.2 mmol/L (-2.0-3.0); ABG HCO3 24.4 mmol/L (21.0-28.0); ABG OXYGEN SATURATION 97.7 % (94.0-98.0); ABG PCO2 (T) 37.7 mmHg (35.0-48.0); ABG PH (T) 7.425 (7.350-7.450); ABG PO2 (T) 99.0 mmHg (83.0-108.0); ALLEN'S TEST Modified; FCOHb 0.3 % (0.5-1.5); FHHb 2.3 % (0.0-5.0); FIO2 50.0 mmHg/%; FMetHb 0.3 % (0.0-1.5); FO2Hb 97.1 % (94.0-98.0); MODE PRVC; PATIENT TEMPERATURE 35.8; PEEP 5 cm H2O; RESPIRATORY RATE 12 b/min; TIDAL VOLUME 500 mL; TOTAL HEMOGLOBIN 11.1 G/dl (13.5-17.5)
--- NOTE | 2025-01-28 06:09 | RADIOLOGY REPORT ---
CHEST RADIOGRAPH Indication: Intubated Technique: Single frontal view of the chest was obtained Comparison: DI CHEST,SINGLE VIEW on DOS: 01/28/25. FINDINGS: Lines and Tubes: The endotracheal tube terminates 4.3 cm above the kami. There is a right central venous catheter with tip terminating in the superior vena cava. There is a catheter along the right neck and chest. Lungs: No focal consolidation. Pleura: No effusion. No pneumothorax. Cardiomediastinal contours: Unremarkable Bones: No acute osseous abnormality. IMPRESSION: 1. Support lines and tubes in appropriate position. No acute cardiopulmonary disease.
[2025-01-28] MEDS ORDERED: acetaminophen 325mg/10.15ml oral unit dose solution OGT PRN (07:03)
[2025-01-28] MEDS ORDERED: GABAPENTIN 300 MG/6 ML oral SOLUTION cup OGT SCH ×2 (07:05→07:06)
[2025-01-28] MEDS ORDERED: ibuprofen tablet 400 MG TABLET OGT SCH (07:06)
[2025-01-28] MEDS ORDERED: duloxetine 30mg CAPSULE.DR OGT SCH (07:07)
[2025-01-28] MEDS ORDERED: POTASSIUM CHLORIDE 20 MEQ/15 ML oral solution OGT PRN ×2 (07:10)
[2025-01-28] MEDS: OMEGA-3/DHA/EPA/FISH OIL 1 EACH CAPSULE.DR PO SCH (07:35)
[2025-01-28] MEDS: docusate sodium 100mg/10ml UD cup OGT SCH (07:47)
[2025-01-28] MEDS: duloxetine 30mg CAPSULE.DR OGT SCH (07:48)
[2025-01-28] MEDS ORDERED: etomidate 2mg/ml inj. ONE (08:00)
[2025-01-28] MEDS ORDERED: rocuronium 10mg/ml inj IV ONE (08:00)
[2025-01-28] MEDS ORDERED: non-formulary drug (Omeprazole 1 TAB) PO SCH (08:00)
[2025-01-28] MEDS: INSULIN LISPRO 100 UNIT/ML INSULN.PEN MULTI-DOSE SQ SCH (08:00)
[2025-01-28 08:02] LABS: MEAN PLATELET VOLUME 8.0 FL (7.4-10.4); RED CELL DISTRIBUTION WIDTH 13.1 % (11.5-14.5)
--- NOTE | 2025-01-28 08:19 | ELECTROCARDIOGRAPH REPORT ---
[facility] Test Date: 2025-01-28 Test Time: 00:13:22 Pat Name: HUGO MULLINS Department: 3rd FLOOR PCU Room: [facility] 2009 A Gender: M Americanization Teacher: : 1950 Requested By: CHACE BRIONES Order Number: [id number] Reading MD: Dr. GIGI Robertson Measurements Intervals Butler Rate: 90 P: 45 MI: 185 QRS: -30 QRSD: 84 T: 46 QT: 373 QTc: 457 Interpretive Statements Age not entered, assumed to be 48 years old for purpose of ECG interpretation Sinus rhythm Inferior infarct, old Electronically Signed On 01-28-2025 9:36:[address] GIGI Robertson Please click the below link to view image of tracing.
--- NOTE | 2025-01-28 08:58 | PROGRESS NOTE ---
Progress Note Cardiology Providers to CC ~ Subjective Subjective The patient was transferred to ICU last night because of hypotension and for placement on Levophed. Blood pressure is now stable but the patient is endotracheally intubated and on mechanical ventilation (??? ) Obviously he can not converse Objective Result Diagram: 01/28/25 0728 01/28/25 0025 Objective Vital signs are stable FiO2 at 30% This patient has still not gotten his loading dose of Plavix although he did have Aggrastat in a bolus last night Coagulation Studies Laboratory Tests Test 01/27/25 14:18 01/27/25 23:41 Prothrombin Time 10.7 SECONDS (9.0-12.0) INR International Normalized Ratio 1.0 INR Activated Partial Thromboplast Time 27 SECONDS (22-32) APTT (Heparin Protocol) 106 SECONDS (45-60) *H Coagulation Comments Problem\Assessment\Plan Additional Plan Recommendations/plan: 1. I have already spoken to the charge nurse about giving [address]avix by way of the NG tube. 2. Patient needs to be taken off Levophed and placed on midodrine as soon as possible 3. Extubation as soon as possible. 4. I am signing off of this case, my work is done. When this patient is discharged he needs to follow up at [facility]. I am not following him up in my office. LYNN DIALLO DO Jan 28, 2025 08:58
[2025-01-28] MEDS ORDERED: ASPI-1397 PO (09:47)
[2025-01-28] MEDS ORDERED: ATOR40TA PO (09:48)
[2025-01-28] MEDS ORDERED: DULO30CA52 PO (09:49)
[2025-01-28] MEDS ORDERED: GABA300C PO (09:50)
[2025-01-28] MEDS ORDERED: LEVE750T85 PO (09:51)
[2025-01-28] MEDS ORDERED: LOSA-415 PO (09:52)
[2025-01-28] MEDS ORDERED: METH85CR31 TOP (09:53)
[2025-01-28] MEDS ORDERED: METF-900 PO (09:55)
[2025-01-28] MEDS ORDERED: METO-539 PO (09:56)
[2025-01-28] MEDS: clopidogrel 300mg tablet OGT ONE (10:08)
[2025-01-28] MEDS ORDERED: DEXTROSE 15 GM of carb/4 tabs (each vial/BOTTLE has 4 tablets) PO PRN ×2 (12:45)
[2025-01-28] MEDS ORDERED: dextrose 50%-water 50ml dispensing syringe IV PRN ×2 (12:45)
[2025-01-28] MEDS ORDERED: glucagon, human recombinant 1mg kit SUBCUT PRN (12:45)
[2025-01-28] MEDS: diazepam inj 5 MG/ML inj. IV PRN (13:04)
--- NOTE | 2025-01-28 14:00 | PROGRESS NOTE- Residence ---
Progress Note - Resident Providers to CC Resident Creating Document: ERIK KAY RES ~ Central Line/PICC still needed: Yes Central Line/PICC Necessity: Prolonged IV access req Wallace-Non Protocol Wallace Indications Met/Not Met: F/C Indications Met Antibiotic Timeout Antibiotic Ordered?: No Subjective Patient continues to be sedated and intubated. Requiring minimal ventilator settings, but he is failing the SAT trials due to agitation and due to this were unable to proceed with the SBT trial today. Otherwise the patient is stable. Objective Vital Signs Date Time Temp Pulse Resp B/P (MAP) Pulse Ox O2 Delivery O2 Flow Rate FiO2 01/28/25 13:15 84 14 97 30 01/28/25 12:00 99.0 120/67 (84) Mechanical Ventilator 01/28/25 02:56 2.0 Result Diagram: 01/28/25 0728 01/28/25 0025 General: Intubated and sedated Neck: Right-sided IJV Resp: Unlabored. Lungs clear to auscultation bilaterally. Heart: Regular Rate and rhythm, pansystolic murmur loudest in the aortic area of grade 3/5, rub or gallop. Abdomen: Soft and non tender no organomegaly. Bowel sounds present. Abdominal bruit heard Extremities: No cyanosis,clubbing or edema. Pedal pulses 2+ Skin: Warm and Dry. Unkempt skin, bruising noted with some skin tears on the bilateral hands Coagulation Studies Laboratory Tests Test 01/27/25 14:18 01/27/25 23:41 Prothrombin Time 10.7 SECONDS (9.0-12.0) INR International Normalized Ratio 1.0 INR Activated Partial Thromboplast Time 27 SECONDS (22-32) APTT (Heparin Protocol) 106 SECONDS (45-60) *H Coagulation Comments Assessment Assessment This is a 74-year-old male patient with a past medical history of uncontrolled type 2 diabetes mellitus, hypertension, CAD status post PTCA who underwent another procedure of LCX stenting yesterday by Dr. Martinez and was transferred to the floor. Postprocedure, the patient developed acute hypoxemic respiratory failure and hypotension due to which Levophed was started, patient is intubated and transferred to the ICU. Plan Plan 1. Acute CHF exacerbation: Acute hypoxemic respiratory failure secondary to above CAD status post PTCA x3; LCX stenting yesterday on 01/27/2025 Weaning off of Levophed Mechanically intubated on ventilator secondary to above Secondary cause of hypoxemic respiratory failure also from Versed use Currently intubated with a FiO2 of 30%, PEEP 5 and saturating greater than 95%. Difficulty weaning off of sedation, currently on fentanyl and propofol. We will try tapering it down and intervene with Valium for agitation Chest x-ray reveals diffuse pulmonary vascular congestion Echocardiogram obtained is positive for heart failure with reduced EF at 35% and severe aortic stenosis; poor overall prognosis. No prior echocardiograms to confirm Continue aspirin and Plavix daily. Unable to receive Plavix last night; close telemetry monitoring. Continue home medications of metoprolol 25 mg day GDMT currently including Losartan (switch to entersto at discharge; check for coverage for compliance issues), metoprolol. will start jardiance. Consdier aldactone when hemodynamically stable Starting weaning protocols for SAT and SBT 2. Anion gap metabolic acidosis: Secondary to diabetic ketoacidosis and lactic acidosis Gap- 19; Lactic acid 9.1; improved to 2.1. Urine ketones+ (acute decompensation) Status post two IV fluid boluses with LR; continue maintenance at the rate of 75 cc/hour After IV fluids, anion gap resolved and with subcu protocol insulin, blood sugars have also improved to less than 250. No DKA insulin drip initiation required Follow repeat CMP; if positive, we will add on insulin drip Monitor for increasing oxygen demand from fluid overload. Daily chest x-rays Strict I&O monitoring 3. Acute kidney injury: Prerenal etiology Likely secondary from hypotension Weaning off of Levophed today, continue maintenance IV fluids I&O monitoring from Wallace's catheter 4. Leukocytosis with left shift: Under evaluation But likely reactive Follow up blood cultures, urine negative for acute infection. Sputum culture positive for some Gram-positive cocci in pairs No antibiotics at this time as he is hemodynamically stable with no febrile episodes 5. Normocytic and normochromic anemia: NG tube in place, suctioning coffee-ground emesis Continue aspirin and Plavix at this time as risk versus benefits are higher Monitor H&H closely Protonix b.i.d. for GI prophylaxis Hold tube feeds for 24 hours 6. Hematoma at insertion site: Compression bandaging present We will monitor pedal pulses and H&H 7. Seizure disorder: Continue home medications of Keppra 8. Chronic pain syndrome- continue gabapentin 300 mg t.i.d.; renal function improving and hence can be continued. Lines: PIV, right central line, Wallace's catheter DVT prophylaxis: SCDs GI prophylaxis: Protonix Diet: NPO, tube feeds in 24 hours Code status: Full code Erik Kay PGY3, Internal medicine resident Date of Service: Jan 28, 2025 Billing Provider: ALISHA HEADLEY MD, DEEPANJALI, RES Jan 28, 2025 14:00
[2025-01-28 14:45] LABS: BANDS% (MANUAL) 3.0 % (0-10); LYMPHOCYTES % (MANUAL) 10.0 % (21-51); MONOCYTES % (MANUAL) 7.0 % (2-12); NEUTROPHILS % (MANUAL) 80.0 % (42-75); PLATELET ESTIMATE NORMAL
[2025-01-28 14:58] LABS: CREATININE 1.01 MG/DL (0.60-1.10); TOTAL CARBON DIOXIDE 30.0 MMOL/L (24-32); eCRCL 64 ML/MIN; eGFR 72 ML/MIN
--- NOTE | 2025-01-28 15:37 | PROGRESS NOTE- Residence ---
Progress Note - Resident Providers to CC Resident Creating Document: MITZY ODEN, RES ~ Antibiotic Timeout Antibiotic Ordered?: No Subjective The patient has been evaluated at the bedside. The patient is currently on mechanical ventilation, plan for spontaneous breathing trial this afternoon. Objective Vital Signs Date Time Temp Pulse Resp B/P (MAP) Pulse Ox O2 Delivery O2 Flow Rate FiO2 01/28/25 15:12 119/70 01/28/25 15:00 99.5 82 12 98 Mechanical Ventilator 30 01/28/25 02:56 2.0 Physical exam: General: The patient is currently under sedation due to mechanical ventilation. HEENT: Conjunctive are pink, sclerae clear, no icterus, pupil is equal in both sides, reactive to light, no ear discharge, no pharyngeal erythema or an edema. Neck: Supple, no adenopathy, thyromegaly. Trachea is midline. No JVD. Presence of right central line. Chest: Respiratory: Vesicular breath sounds. No ronchi, crepitus or wheezing. Resonance is normal upon percussion of all lung ramirez. Cardiovascular: S1-S2 regular sinus rhythm and, regular rate, no gallops, no rubs, no murmurs Abdomen: No visible distention, Bowel sounds present on auscultation, on palpation: soft, nontender, no guarding, no rigidity. Extremities: No obvious deformities, no pitting edema bilaterally, capillary refill intact, peripheral pulsations are intact on both sides, presence of ecchymosis in the level of the groin. Neurologic: The patient is currently sedation due to mechanical ventilation. Skin: Warm and dry. Result Diagram: 01/29/2520401/29/25204 Coagulation Studies Laboratory Tests Test 01/27/25 14:18 01/27/25 23:41 Prothrombin Time 10.7 SECONDS (9.0-12.0) INR International Normalized Ratio 1.0 INR Activated Partial Thromboplast Time 27 SECONDS (22-32) APTT (Heparin Protocol) 106 SECONDS (45-60) *H Coagulation Comments Assessment Assessment 74-year-old male patient presented to the hospital with chief complaint of chest pain. The patient was found with NSTEMI, Cardiology was consulted, coronary angiogram was performed on 01/27/2025. After the procedure the patient was transferred to the floor, during the night of 01/27/2025 the patient developed hypotension and acute hypoxemic respiratory failure reason for which the patient was intubated, started on vasopressors and transferred to ICU. Plan Plan Acute hypoxemic respiratory failure secondary to acute exacerbation of systolic congestive heart failure with reduced ejection fraction of 40%: Severe aortic stenosis: A: Echocardiogram showed normal left ventricular size and moderately reduced function. Mild concentric hypertrophy. Left ventricular ejection fraction is 40-45%. Aortic valve with significant stenosis demonstrated by reduced excursion and increased transvalvular and ascending aorta turbulence. KIYA: 0.98 cmsq. Due to acute hypoxemic respiratory failure on the night of 01/27/2025 the patient was intubated and transferred to ICU. The patient will undergo SBT this afternoon. NSTEMI S/p coronary angiogram and left circumflex stenting on 01/27/2025. A: The patient presented to the hospital with chief complaint of chest pain, the patient received one dose of nitroglycerin in the emergency department after which his pain improved. EKG during admission showed sinus tachycardia, no ST elevation or depression, normal axis, NC within reference range. The patient was found [place] [address]. Cardiology was consulted who performed coronary angiogram on 01/27/2025. During the night the patient presented acute hypoxemic respiratory failure and hypotension reason for which the patient was intubated and started on vasopressors and subsequently transferred to ICU. Echocardiogram showed normal left ventricular size and moderately reduced function. Mild concentric hypertrophy. Left ventricular ejection fraction is 40-45%. Aortic valve with significant stenosis demonstrated by reduced excursion and increased transvalvular and ascending aorta turbulence. KIYA: 0.98 cmsq. On aspirin 81 mg daily. Clopidogrel 75 mg daily. Atorvastatin 80 mg daily. Uncontrolled Type 2 diabetes mellitus Diabetic ketoacidosis: High anion gap metabolic acidosis likely secondary to DKA and lactic acidosis: HbA1c 10.3. Anion gap early this mornin. ABG showing metabolic acidosis, subsequent ABG improved. On hyperglycemia/hypoglycemia protocol. Glargine 15 units HS. Medium dose short-acting insulin sliding scale. Prerenal acute kidney injury likely secondary to dehydration: Creatinine yesterday was 1.76, came down to a two 1.01. BUN/creatinine ratio 25.7 On maintenance fluids. Continue strict I&O. Normocytic normochromic anemia: Upper gastrointestinal bleeding: The patient is currently with NG tube suctioning coffee-ground emesis. Continued aspirin and Plavix at this time due to her current cardiac condition. Continue to monitor H&H. Protonix 40 mg b.i.d. Possible reactive leukocytosis: Follow up blood cultures, urine negative for acute infection. Sputum culture positive for some Gram-positive cocci in pairs No antibiotics at this time as he is hemodynamically stable with no febrile episodes. Continue to monitor CBC. Back pain Patient reports severe right lower lumbar pain. Will order MRI lumbar spine once patient is stabilized. On [place] one tablet of 5 mg q.4h PRN for moderate pain, 10 mg q.4h PRN for severe pain. Hypertension Currently with hypotension. Blood pressure medications on hold due to hypotension. Substance use disorder UA positive for cannabinoids Substance use navigator and social service technician to consult when medically stable. Code status: Full code DVT prophylaxis: SCDs Analgesia/sedation: [place] Line/tube: PIV, rate central line, Wallace GI prophylaxis: Protonix Nutrition: NPO PT: Pending Prognosis: Guarded Disposition: Continue medical management as per head banquet waitress. We will assume care once the patient is downgraded. Resident MD attestation: Patient was seen, examined and discussed with the attending MD, Dr. Tracy Gong Internal Medicine Resident [facility] Addendum management per icu team Date of Service: Jan 28, 2025 Billing Provider: CHACE BRIONES MD Common Visit Codes: [id number] INP/OBS CARE(HIGH) MITZY ODEN, RES Jan 28, 2025 15:37 CHACE BRIONES MD Jan 29, 2025 08:02
[2025-01-28] MEDS ORDERED: INSULIN LISPRO 100 UNIT/ML INSULN.PEN MULTI-DOSE SQ SCH (17:00)
[2025-01-28] MEDS: duloxetine 30mg CAPSULE.DR PO SCH (20:00)
[2025-01-28] MEDS: insulin glargine (Lantus) pen - multi-dose SQ SCH (22:10)
[2025-01-29] VITALS (37 sets, daily range): BP systolic 15–135; BP diastolic 51–70; PULSE 48–86; RESP 12–24; O2SAT 95–100
[2025-01-29 02:25] LABS: MEAN PLATELET VOLUME 7.6 FL (7.4-10.4); RED CELL DISTRIBUTION WIDTH 13.1 % (11.5-14.5)
[2025-01-29 02:37] LABS: APTT 28 SECONDS (22-32); INR 1.0 INR
[2025-01-29 02:40] LABS: CREATININE 0.92 MG/DL (0.60-1.10); PHOSPHORUS 2.7 MG/DL (2.3-4.5); TOTAL CARBON DIOXIDE 30.0 MMOL/L (24-32); eCRCL 70 ML/MIN; eGFR 80 ML/MIN
[2025-01-29 02:59] LABS: BANDS% (MANUAL) 2.0 % (0-10); EOSINOPHILS % (MANUAL) 1.0 % (0-6); LYMPHOCYTES % (MANUAL) 9.0 % (21-51); MONOCYTES % (MANUAL) 12.0 % (2-12); NEUTROPHILS % (MANUAL) 76.0 % (42-75); PLATELET ESTIMATE NORMAL
[2025-01-29 03:57] LABS: ABG BASE EXCESS 2.8 mmol/L (-2.0-3.0); ABG HCO3 27.0 mmol/L (21.0-28.0); ABG OXYGEN SATURATION 95.7 % (94.0-98.0); ABG PCO2 (T) 41.2 mmHg (35.0-48.0); ABG PH (T) 7.436 (7.350-7.450); ABG PO2 (T) 83.5 mmHg (83.0-108.0); ALLEN'S TEST Modified; FCOHb 0.4 % (0.5-1.5); FHHb 4.3 % (0.0-5.0); FIO2 30.0 mmHg/%; FMetHb 0.3 % (0.0-1.5); FO2Hb 95.0 % (94.0-98.0); MODE ac/prvc; PATIENT TEMPERATURE 37.7; PEEP 5 cm H2O; RESPIRATORY RATE 12 b/min; TIDAL VOLUME 500 mL; TOTAL HEMOGLOBIN 10.4 G/dl (13.5-17.5)
[2025-01-29] MEDS ORDERED: fentaNYL 2,500 MCG in Normal Saline 250ml IV soln bag IV SCH (05:00)
--- NOTE | 2025-01-29 05:50 | RADIOLOGY REPORT ---
CHEST RADIOGRAPH Indication: intubated Technique: Single frontal view of the chest was obtained COMPARISON: DI CHEST,SINGLE VIEW on DOS: 01/28/25, DI CHEST,SINGLE VIEW on DOS: 01/28/25, DI CHEST,SINGLE VIEW on DOS: 01/27/25, DI CHEST,SINGLE VIEW on DOS: 11/27/24, DI CHEST,SINGLE VIEW on DOS: 11/24/24 FINDINGS: Lines and Tubes: Endotracheal tube, enteric catheter and right central venous catheter in satisfactory position. Lungs: Unchanged congestion. Pleura: No effusion. No pneumothorax. Cardiomediastinal contours: Unremarkable Bones: Unremarkable IMPRESSION: Lines and tubes in satisfactory position. No significant interval change.
--- NOTE | 2025-01-29 06:41 | CARDIOLOGY REPORT ---
DATE OF SERVICE: 01/27/2025 DICTATING PHYSICIAN: LYNN DIALLO DO CARDIAC CATHETERIZATION REPORT FURNACE [employer]ANER STUDY #: [id number]. REFERRING PHYSICIAN: Dr. Smart. CLINICAL HISTORY: This 74-year-old man presented to the emergency room with a 2-day history of right-sided chest pain. There were nonspecific ST changes, but his troponins were slightly elevated. There was a prior history of coronary stenting at [facility] about 10 years ago. PROCEDURES PERFORMED: * Left heart catheterization. * Left ventriculography. * Selective coronary arteriography. * PTCA/stent placement (distal circumflex coronary artery). * Intracoronary Aggrastat. * 60 minutes conscious sedation supervision DESCRIPTION OF PROCEDURE: The patient was sedated with fentanyl and Versed. He was then prepared and draped in the usual manner. The right inguinal area was infiltrated with 1% lidocaine using a micropuncture set and a Seldinger technique. A 7-St Helenian sheath was placed in the common femoral artery. 3000 units of heparin were given. With great difficulty, a sclerotic aortic valve was crossed with a guidewire. A double lumen Saturnino was in place and there was a 25 mm gradient across the valve. A hand injection ventriculogram was performed. The inferoapical area appeared to not contract very well and the posterobasal segment was somewhat slow in appearance. The ejection fraction was estimated to be about 45%. A stent appears to be present in the large posterolateral branch of the circumflex coronary artery, was a large vessel. There was a large first obtuse marginal, then a large posterolateral branch, and then a small caliber terminal branch, which could have been posterior descending. RIGHT CORONARY: The right coronary was a very small, nondominant vessel that was not obstructed, but only gave off 2 acute marginal branches. PTCA/STENT PLACEMENT: The patient was given an additional 7000 units of heparin. The left main coronary was engaged with a 6-St Helenian XBC4 guiding catheter. A Choice PT2 guidewire was passed down through the circumflex and the tip was positioned distally. The lesion was dilated with a 3 x 12 mm balloon. The residual stenosis was covered with a 3.5 x 15 mm Romaine [place] drug-eluting stent. The stent was post dilated with a 3 x 15 mm noncompliant balloon inflated to 20 atmospheres. There was somewhat sluggish flow beyond the stent. Therefore, the patient was given a bolus dose of Aggrastat directly into the left coronary. Final arteriography was then performed. Following stenting of the circumflex coronary with post dilation and Aggrastat infusion, there was no residual stenosis and NABIL grade 3 flow distally. RESULTS: HEMODYNAMIC DATA: The left ventricular end-diastolic pressure was 21 mmHg. There was what looks like a 17 mm [id number]-ml-xfqb gradient across the sclerotic aortic valve. LEFT VENTRICULOGRAM: As already stated the inferoapical and posterobasal segments appeared to be hypokinetic, but the LVEF was about 45%. LEFT MAIN CORONARY ARTERY: The left main was a large unobstructed vessel bifurcating into left anterior descending and circumflex coronary arteries. LEFT ANTERIOR DESCENDING CORONARY ARTERY: The LAD was a medium to large-sized vessel with a transapical distribution. There was a very small first diagonal branch, a large second diagonal branch, which took ____ from the mid LAD. There were luminal irregularities, but no outright obstructions in the LAD. CIRCUMFLEX CORONARY ARTERY: The circumflex was a large main stem vessel. There was a large very proximal first obtuse marginal. Before the takeoff of a large posterolateral branch, there was an eccentric 99% stenosis. The distal-most circumflex was composed of a small posterolateral branch versus posterior descending branch. RIGHT CORONARY ARTERY: The right coronary was a small caliber vessel. There was a branch reaching down to the inferior septal area, but no other branches more distally. There were no obstructive lesions in this small caliber right coronary. CONCLUSIONS: 1. Obstructive coronary artery disease primarily manifested as a new eccentric 99% stenosis in the distal circumflex between a large first obtuse marginal and a large posterolateral branch. 2. Successful PTCA/stent placement directed at the lesion just described. Following the intervention, there was no significant residual stenosis and NABIL grade 3 flow following the intervention. 3. Left ventricular function is mildly reduced. There is inferoapical and posterobasal hypokinesis. The estimated LVEF was 45%. RECOMMENDATIONS: Ongoing medical therapy. LYNN DIALLO DO TID: [id number] RECEIPT: [id number] SUGEY/DONY
[2025-01-29] MEDS: EMPAGLIFLOZIN 10 MG TABLET PO SCH (07:44)
[2025-01-29] MEDS: metoprolol succinate 25mg (24-HOUR) SR. Tablet PO SCH (07:45)
[2025-01-29] MEDS: magnesium hydroxide 30ml (MOM) UD suspension PO PRN (07:49)
[2025-01-29] MEDS ORDERED: non-formulary drug (Atorvastatin Calcium* (Lipitor*) 1 TAB) PO SCH (08:00)
[2025-01-29] MEDS ORDERED: acetaminophen 325mg/10.15ml oral unit dose solution OGT PRN (08:37)
[2025-01-29] MEDS ORDERED: mag hydrox/Alum hydrox/simeth 30ml oral suspension OGT PRN (08:40)
[2025-01-29] MEDS: COMMUNICATION ORDER 1 EA MISC MC ONE (08:57)
[2025-01-29] MEDS ORDERED: potassium CL 10mEq/100ml bag 100 ML IV PRN (11:30)
[2025-01-29] MEDS ORDERED: potassium Cl 40MEQ/1/2NS 520ml 520 ML IV PRN (11:30)
[2025-01-29] MEDS ORDERED: magnesium sulf-water 4G/100mL 100 ML IV PRN (11:30)
[2025-01-29] MEDS ORDERED: vancomycin/NS 1 GM ADD-VANTAGE 250 ML X 1 DOSE IV SCH (12:00)
[2025-01-29] MEDS: VANCOMYCIN 1.75GM/WATER FOR INJ (PEG) 350 ML IVPB IV ONE (12:39)
[2025-01-29] MEDS: piperacillin/tazobactam inj. 3.375 GM in NS 50ml IV SCH (15:22)
[2025-01-29 15:32] LABS: LEUKOCYTE ESTERASE ,URINE NEGATIVE (Neg); NITRITES, URINE NEGATIVE (Neg); OCCULT BLOOD,URINE TRACE-INTACT (Neg)
[2025-01-29] MEDS: propofol 1000mg/100ml bottle 100 ML IV SCH (15:40)
[2025-01-29 15:41] LABS: UA COLLECTION TYPE NON-SPECIFIED
--- NOTE | 2025-01-29 15:43 | PROGRESS NOTE- Residence ---
Progress Note - Resident Providers to CC Resident Creating Document: ERIK STEIN RES ~ Central Line/PICC still needed: Yes Central Line/PICC Necessity: Prolonged IV access req Wallace-Non Protocol Wallace Indications Met/Not Met: F/C Indications Met Antibiotic Timeout Antibiotic Ordered?: Yes Subjective The patient is extremely agitated and is unable to be weaned off the sedated. Continues to require minimal ventilator support. Objective Vital Signs Date Time Temp Pulse Resp B/P (MAP) Pulse Ox O2 Delivery O2 Flow Rate FiO2 01/29/25 13:08 60 12 97 30 01/29/25 11:03 101.1 100/57 (71) Mechanical Ventilator 01/28/25 02:56 2.0 Result Diagram: 01/29/2520401/29/25204 General: Intubated and sedated Neck: Right-sided IJV Resp: Unlabored. Lungs clear to auscultation bilaterally. Heart: Regular Rate and rhythm, pansystolic murmur loudest in the aortic area of grade 3/5, rub or gallop. Abdomen: Soft and non tender no organomegaly. Bowel sounds present. Abdominal bruit heard Extremities: No cyanosis,clubbing or edema. Pedal pulses 2+ Skin: Warm and Dry. Unkempt skin, bruising noted with some skin tears on the bilateral hands Coagulation Studies Laboratory Tests Test 01/27/25 23:41 01/29/25 02:05 APTT (Heparin Protocol) 106 SECONDS (45-60) *H Prothrombin Time 10.6 SECONDS (9.0-12.0) INR International Normalized Ratio 1.0 INR Activated Partial Thromboplast Time 28 SECONDS (22-32) Coagulation Comments Assessment Assessment 74-year-old male patient presented to the hospital with chief complaint of chest pain. The patient was found with NSTEMI, Cardiology was consulted, coronary angiogram was performed on 01/27/2025. After the procedure the patient was transferred to the floor, during the night of 01/27/2025 the patient developed hypotension and acute hypoxemic respiratory failure reason for which the patient was intubated, started on vasopressors and transferred to ICU. Plan Plan 1. Acute CHF exacerbation: Acute hypoxemic respiratory failure secondary to above CAD status post PTCA thrice; LCX stenting yesterday on 01/27/2025 Weaned off of the Levophed. Continues to be mechanically ventilated and sedated Secondary cause of hypoxemic respiratory failure also from Versed use Currently intubated with a FiO2 of 30%, PEEP 5 and saturating greater than 95%. Difficulty weaning off of sedation, kindly sedated with Precedex Chest x-ray reveals diffuse pulmonary vascular congestion Echocardiogram obtained is positive for heart failure with reduced EF at 35% and severe aortic stenosis; poor overall prognosis. No prior echocardiograms to confirm Continue aspirin and Plavix daily Hold losartan and metoprolol, continue GDM T after stabilization Weaning protocols for SAT and SBT 2. Anion gap metabolic acidosis: Resolved Secondary to diabetic ketoacidosis and lactic acidosis Continue maintenance IV fluids Monitor for increasing oxygen demand from fluid overload. Daily chest x-rays Strict I&O monitoring 3. Acute kidney injury: Resolved Prerenal etiology Likely secondary from hypotension Continue IVF I&O monitoring from Wallace's catheter 4. Leukocytosis with left shift: Under evaluation Likely reactive Blood cultures and procalcitonin within normal limits. Lactic acid within normal limits Sputum culture positive for some Gram-positive cocci in pair; started vancomycin and zosyn empirically 5. Normocytic and normochromic anemia: NG tube in place, suctioning coffee-ground emesis NPO and through NG tube after midnight, plan for EGD tomorrow Continue aspirin and Plavix at this time as risk versus benefits are higher Monitor H&H closely Protonix b.i.d. for GI prophylaxis 6. Hematoma at insertion site: Compression bandaging present We will monitor pedal pulses and H&H 7. Seizure disorder: Continue home medications of Keppra 8. Chronic pain syndrome- continue gabapentin 300 mg t.i.d.; renal function improving and hence can be continued. 9. Agitation/irritability: Tox screen negative. Close monitoring for improvement, we will try to wean off of sedation as possible. Seroquel 50mg BID Lines: PIV, right central line, Wallace's catheter DVT prophylaxis: SCDs GI prophylaxis: Protonix Diet: NPO, tube feeds in 24 hours Code status: Full code Erik Stein PGY3, Internal medicine resident Patient seen, findings discussed and examined under guidance of Dr. Gibran MD Date of Service: Jan 29, 2025 Billing Provider: ALISHA HEADLEY MD, DEEPANJALI, RES Jan 29, 2025 15:43
[2025-01-29 15:48] LABS: CAL OXALATE CRYSTALS 3+ /HPF (NEGATIVE); SQUAMOUS EPITHELIAL CELL,UR FEW /LPF (FEW); URIC ACID CRYSTALS 3+ /HPF (NEGATIVE)
[2025-01-29] MEDS ORDERED: piperacillin/tazo 3.375gm/50ml 50 ML IV SCH (16:00)
--- NOTE | 2025-01-29 16:30 | CONSULTATION REPORT - RESIDENT ---
Consult Providers to CC Resident Creating Document: PHI SOLIMAN CC: EDDIE JI MD History of Present Illness Reason for Admit\Complaint: Coffee-ground emesis History of Present Illness Patient is a 74-year-old male with history of type 2 diabetes, hypertension and CAD who initially came into the ED due to chest pain. Patient was taken to the hoisting laborer yesterday where he underwent stenting of the circumflex. Posterior to the procedure patient presenting with acute respiratory failure and patient was transferred to the CICU where he was intubated and started on mechanical ventilation. Today, started presenting coffee-ground emesis, and a drop in hemoglobin was also noticed. Reason why gastroenterology has been consulted for further evaluation and management. Allergies: Coded Allergies: No Known Allergies (Unverified , 11/24/24) Home Medications Home Medications Active Reported Toprol Xl* (Metoprolol Succinate) 25 Mg Tab.sr.24h 1 Tab PO DAILY Metformin ER* (Metformin HCl) 500 Mg Tab.sr.24h 2 Tab PO QPM Muscle Rub 15%-10% Cream (Methyl Salicylate/Menthol) 15 %-10 % Cream..g. 1 Applic TOP TID PRN Cozaar* (Losartan Potassium) 25 Mg Tablet 1 Tab PO DAILY Levetiracetam 750 Mg Tab.er.24h 1 Tab PO Q12H Neurontin (Gabapentin) 300 Mg Capsule 3 Cap PO BID Duloxetine HCl 30 Mg Capsule.dr 1 Cap PO BID Lipitor* (Atorvastatin Calcium) 40 Mg Tablet 1 Tab PO DAILY Aspirin EC (Aspirin) 81 Mg Tablet.dr 1 Tab PO DAILY Methocarbamol 750 Mg Tablet 1 Tab PO Q6H Ondansetron Odt (Ondansetron HCl) 4 Mg Tab.rapdis 1 Tab PO Q6H PRN PRN Omeprazole 20 Mg Capsule.dr 1 Cap PO HS Tylenol (Acetaminophen) 325 Mg Tablet 1 Tab PO Q6H PRN Past Medical History Past Medical History Type 2 diabetes Hypertension CAD Past Surgical History Surgical History Comment Cholecystectomy Appendectomy Hydrocephalus, shunt was placed Two laminectomy and one disectomy Bilateral arm surgeries Family History Family History: Patient reports no known family medical history. Past Social History Social History Comment Smokes marijuana Quit smoking cigarettes in 1970 before that used to smoke a pack a day Quit alcohol 20-30 years ago ROS ROS Unable to obtain due to patient being sedated Exam Vitals: Vital Signs Date Time Temp Pulse Resp B/P (MAP) Pulse Ox O2 Delivery O2 Flow Rate FiO2 01/29/25 15:47 12 30 01/29/25 15:43 135/68 01/29/25 15:00 100.2 59 97 Mechanical Ventilator 01/28/25 02:56 2.0 General: General: Sedated, intubated and mechanically ventilated HEENT: ET tube in place, No pallor present, no icterus, moist mucous membranes Neck: No masses and tenderness Resp: Lungs clear to auscultation bilaterally. Chest: Normal expansion Cardiovascular: Regular Rate and rhythm, normal S1 and S2 without murmur, rub or gallop Abdomen: Soft, no organomegaly, no guarding and rigidity, bowel sounds present Neuro: Sedated, corneal and pupillary reflex intact Extremities: No cyanosis,clubbing or edema Skin: Warm and Dry. No lesions Diagnostic Data Last Recorded Lab Results: 01/29/25 02001/29/25 020 Diagnostic Data: Laboratory Tests Test 01/27/25 23:41 01/29/25 02:05 APTT (Heparin Protocol) 106 SECONDS (45-60) *H Prothrombin Time 10.6 SECONDS (9.0-12.0) INR International Normalized Ratio 1.0 INR Activated Partial Thromboplast Time 28 SECONDS (22-32) Coagulation Comments Additional Plan Gastroenterology consultation note: Assessment: Patient is a 74-year-old male with CAD s/p stent to the circumflex. Patient presented with coffee-ground emesis after PCI and intubation. He also had a drop in hemoglobin of about 5g today compared to admission which raised concerns for upper upper GI bleed. Possible etiologies include peptic ulcer disease, av malformations and malignancy. Plan is to perform EGD tomorrow. Recommendations: - Keep patient NPO - Continue monitoring H&H - Continue Protonix - EGD in a.m. Other comorbidities managed per clerical adjuster and Cardiology Patient has been discussed in detail with attending physician, Dr. Kuhn Critical care time: 45min Phi De La Garza MD Internal Medicine Resident PGY-2 Date of Service: Jan 29, 2025 Billing Provider: EDDIE JI MD, LEONARDO LUIS Jan 29, 2025 16:30
--- NOTE | 2025-01-29 19:33 | PROGRESS NOTE- Residence ---
Progress Note - Resident Providers to CC Resident Creating Document: ALPHONSE DENIS RES ~ Antibiotic Timeout Antibiotic Ordered?: Yes Subjective PATIENT WAS SEEN AND EXAMINED ON BEDSIDE, HE IS CURRENTLY INTUBATED Objective Vital Signs Date Time Temp Pulse Resp B/P (MAP) Pulse Ox O2 Delivery O2 Flow Rate FiO2 01/29/25 19:00 99.9 56 12 105/59 (74) 98 Mechanical Ventilator 30 01/28/25 02:56 2.0 Result Diagram: 01/29/2520401/29/25204 General: Intubated and sedated Neck: Right-sided IJV Resp: Unlabored. Lungs clear to auscultation bilaterally. Heart: Regular Rate and rhythm, Systolic murmur loudest in the aortic area of grade 3/5, rub or gallop. Abdomen: Soft and non tender no organomegaly. Bowel sounds present. Abdominal bruit heard Extremities: No cyanosis,clubbing or edema. Pedal pulses 2+ Skin: Warm and Dry, bruising noted with some skin tears on the bilateral hands Coagulation Studies Laboratory Tests Test 01/27/25 23:41 01/29/25 02:05 APTT (Heparin Protocol) 106 SECONDS (45-60) *H Prothrombin Time 10.6 SECONDS (9.0-12.0) INR International Normalized Ratio 1.0 INR Activated Partial Thromboplast Time 28 SECONDS (22-32) Coagulation Comments Advance Care Planning Advanced Care plannin - 30 Minutes Assessment Assessment 74-year-old male patient presented to the hospital with chief complaint of chest pain. The patient was found with NSTEMI, Cardiology was consulted, coronary angiogram was performed on 01/27/2025. After the procedure the patient was transferred to the floor, during the night of 01/27/2025 the patient developed hypotension and acute hypoxemic respiratory failure reason for which the patient was intubated, started on vasopressors and transferred to ICU. Plan Plan Management as per ICU team. 1. Acute CHF exacerbation: Acute hypoxemic respiratory failure secondary to above CAD status post PTCA thrice; LCX stenting yesterday on 01/27/2025 Weaned off of the Levophed. Continues to be mechanically ventilated and sedated Currently intubated Chest x-ray reveals diffuse pulmonary vascular congestion Echocardiogram shows reduced EF at 35% and severe aortic stenosis; poor overall prognosis. No prior echocardiograms to confirm Continue aspirin and Plavix daily Hold losartan and metoprolol, continue GDM T after stabilization Weaning protocols for SAT and SBT 2. Anion gap metabolic acidosis: Resolved 3. Acute kidney injury: Resolved 4. Leukocytosis with left shift: POSSIBLY REACTIVE PRELIMINARY BLOOD CULTURE NEGATIVE PRELIMINARY RESPIRATORY CULTURE NEGATIVE 5. Normocytic and normochromic anemia: NG tube in place, suctioning coffee-ground emesis NPO and through NG tube after midnight, plan for EGD tomorrow Continue aspirin and Plavix at this time as risk versus benefits are higher Monitor H&H closely Protonix b.i.d. for GI prophylaxis 6. Hematoma at insertion site: Compression bandaging present We will monitor pedal pulses and H&H 7. Seizure disorder: Continue home medications of Keppra 8. Chronic pain syndrome- continue gabapentin 300 mg t.i.d.; renal function improving and hence can be continued. Lines: PIV, right central line, Wallace's catheter DVT prophylaxis: SCDs GI prophylaxis: Protonix Diet: NPO, tube feeds in 24 hours Code status: Full code Alphonse Denis PGY 1 IM Date of Service: Jan 29, 2025 Billing Provider: CHACE BRIONES MD Common Visit Codes: [id number] INP/OBS CARE(HIGH) ALPHONSE DENIS, RES Jan 29, 2025 19:33 CHACE BRIONES MD Jan 30, 2025 06:32
[2025-01-29 19:41] LABS: CREATININE 0.96 MG/DL (0.60-1.10); PHOSPHORUS 3.4 MG/DL (2.3-4.5); TOTAL CARBON DIOXIDE 26.7 MMOL/L (24-32); eCRCL 67 ML/MIN; eGFR 76 ML/MIN
[2025-01-29] MEDS: duloxetine 30mg CAPSULE.DR OGT SCH (20:00)
[2025-01-29] MEDS: GABAPENTIN 300 MG/6 ML oral SOLUTION cup OGT SCH (20:03)
[2025-01-29] MEDS: levetiracetam 100mg/ml oral solution 5ml UD cup OGT SCH (20:08)
[2025-01-29] MEDS: magnesium sulf-water 2g/50mL 50 ML IV PRN (20:53)
[2025-01-29] MEDS: potassium Cl 40MEQ/270ML bag 250 ML IV PRN (21:57)
--- NOTE | 2025-01-29 23:47 | PROGRESS NOTE ---
Progress Note Dictate Providers to CC ~ Antibiotic Ordered?: Yes Objective Vitals Vital Signs Date Time Temp Pulse Resp B/P (MAP) Pulse Ox O2 Delivery O2 Flow Rate FiO2 01/29/25 23:15 48 12 98 30 01/29/25 23:00 99.3 96/54 (68) Mechanical Ventilator 01/28/25 02:56 2.0 Lab Results: 01/29/25 0205 01/29/25 1854 Coagulation Studies Laboratory Tests Test 01/27/25 23:41 01/29/25 02:05 APTT (Heparin Protocol) 106 SECONDS (45-60) *H Prothrombin Time 10.6 SECONDS (9.0-12.0) INR International Normalized Ratio 1.0 INR Activated Partial Thromboplast Time 28 SECONDS (22-32) Coagulation Comments Problem\Assessment\Plan Additional Plan Patient was seen and evaluated using HIPPA complaint AV device Rounded with discharge rn and bedside RN Respiratory failure, PNA, Anemia, cardiogenic shock On mechanical ventilation Continue current vent settings lighten sedation as tolerated has been agitated SBT BS Abx follow cultures Anemia work up CCT 60mins MD LYNN York,TEENA Camarena MD Jan 29, 2025 23:46
[2025-01-30] VITALS (31 sets, daily range): BP systolic 13–158; BP diastolic 34–88; PULSE 44–123; RESP 12–29; O2SAT 92–100
[2025-01-30] MEDS: vancomycin/NS 1 GM ADD-VANTAGE 250 ML X 1 DOSE IV SCH (00:33)
[2025-01-30 02:29] LABS: APTT 22 SECONDS (22-32); INR 1.0 INR
[2025-01-30 02:48] LABS: CREATININE 1.03 MG/DL (0.60-1.10); PHOSPHORUS 3.9 MG/DL (2.3-4.5); TOTAL CARBON DIOXIDE 25.4 MMOL/L (24-32); eCRCL 63 ML/MIN; eGFR 70 ML/MIN
[2025-01-30 03:04] LABS: MEAN PLATELET VOLUME 8.3 FL (7.4-10.4); RED CELL DISTRIBUTION WIDTH 13.0 % (11.5-14.5)
[2025-01-30 03:26] LABS: ABG BASE EXCESS -2.5 mmol/L (-2.0-3.0); ABG HCO3 21.3 mmol/L (21.0-28.0); ABG OXYGEN SATURATION 96.8 % (94.0-98.0); ABG PCO2 (T) 32.8 mmHg (35.0-48.0); ABG PH (T) 7.432 (7.350-7.450); ABG PO2 (T) 93.8 mmHg (83.0-108.0); ALLEN'S TEST Modified; FCOHb 0.7 % (0.5-1.5); FHHb 3.2 % (0.0-5.0); FIO2 30.0 mmHg/%; FMetHb 0.3 % (0.0-1.5); FO2Hb 95.8 % (94.0-98.0); MODE ac/prvc; PATIENT TEMPERATURE 37.2; PEEP 5 cm H2O; RESPIRATORY RATE 12 b/min; TIDAL VOLUME 500 mL; TOTAL HEMOGLOBIN 8.4 G/dl (13.5-17.5)
--- NOTE | 2025-01-30 06:03 | RADIOLOGY REPORT ---
CHEST RADIOGRAPH Indication: intubated Technique: Single frontal view of the chest was obtained COMPARISON: DI CHEST,SINGLE VIEW on DOS: 01/29/25, DI CHEST,SINGLE VIEW on DOS: 01/28/25, DI CHEST,SINGLE VIEW on DOS: 01/28/25, DI CHEST,SINGLE VIEW on DOS: 01/27/25, DI CHEST,SINGLE VIEW on DOS: 11/27/24 FINDINGS: Lines and Tubes: Endotracheal tube, enteric catheter and right central venous catheter in satisfactory position. Lungs: Clear Pleura: No effusion. No pneumothorax. Cardiomediastinal contours: Unremarkable Bones: Unremarkable IMPRESSION: Lines and tubes in satisfactory position. No significant interval change.
[2025-01-30] MEDS: EMPAGLIFLOZIN 10 MG TABLET OGT SCH (08:34)
--- NOTE | 2025-01-30 12:27 | PROGRESS NOTE- Residence ---
Progress Note - Resident Providers to CC Resident Creating Document: ERIK STEIN RES ~ Central Line/PICC still needed: Yes Central Line/PICC Necessity: Prolonged IV access req Wallace-Non Protocol Wallace Indications Met/Not Met: F/C Indications Met Antibiotic Timeout Antibiotic Ordered?: No Subjective Patient seen, self extubated today morning. However, he is much more calmer today. We will try to keep him off the sedation. He is in no acute respiratory distress after the extubation in his saturating greater than 95% on 2 L of oxygen via nasal cannula. Bedside EGD was planned for today but due to the patient's history of increased agitation and inappropriate behavior, plan for EGD in the OR with unconscious sedation Objective Vital Signs Date Time Temp Pulse Resp B/P (MAP) Pulse Ox O2 Delivery O2 Flow Rate FiO2 01/30/25 11:32 59 20 95 Nasal Cannula 2.0 01/30/25 09:58 30 01/30/25 09:00 129/56 (80) 01/30/25 08:00 98.6 Result Diagram: 01/30/25 0255 01/30/25 0150 General: Extubated, comfortable in no acute distress Neck: Right-sided IJV Resp: Unlabored. Lungs clear to auscultation bilaterally. Heart: Regular Rate and rhythm, pansystolic murmur loudest in the aortic area of grade 3/5, rub or gallop. Abdomen: Soft and non tender no organomegaly. Bowel sounds present. Abdominal bruit heard Extremities: No cyanosis,clubbing or edema. 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 No cranial nerve deficits. Pupils equal and reactive to light. No motor or sensory deficits Skin: Warm and Dry. Unkempt skin, bruising noted with some skin tears on the bilateral hands Coagulation Studies Laboratory Tests Test 01/27/25 23:41 01/30/25 01:50 APTT (Heparin Protocol) 106 SECONDS (45-60) *H Prothrombin Time 10.7 SECONDS (9.0-12.0) INR International Normalized Ratio 1.0 INR Activated Partial Thromboplast Time 22 SECONDS (22-32) Coagulation Comments Assessment Assessment 74-year-old male patient presented to the hospital with chief complaint of chest pain. The patient was found with NSTEMI, Cardiology was consulted, coronary angiogram was performed on 01/27/2025. After the procedure the patient was transferred to the floor, during the night of 01/27/2025 the patient developed hypotension and acute hypoxemic respiratory failure reason for which the patient was intubated, started on vasopressors and transferred to ICU. Plan Plan 1. Acute CHF exacerbation: Improved Acute hypoxemic respiratory failure secondary to above; resolved Medication induced cardiorespiratory depression; resolved CAD status post PTCA thrice; LCX stenting yesterday on 01/27/2025 Extubated today. Maintaining well saturations greater than 95% on 2 L oxygen Secondary cause of hypoxemic respiratory failure also from Versed use Echocardiogram obtained is positive for heart failure with reduced EF at 35% and severe aortic stenosis; poor overall prognosis Continue aspirin and Plavix daily Hold losartan and metoprolol, continue GDM T after stabilization Outpatient Cardiology referral at discharge 2. Hoe-wthjkqd-zavwjuvro Type 2 diabetes mellitus: Uncontrolled A1c 10.3 On metformin 1000 mg daily at home, held On hyperglycemia/hypoglycemia protocol Goal at 110-120 mg/dL 3. Acute kidney injury: Resolved Prerenal etiology Likely secondary from hypotension Diminished output overnight through the Wallace's catheter Continue IVF I&O monitoring from Wallace's catheter 4. Leukocytosis with left shift: Improving Under evaluation Likely reactive Sepsis workup negative Blood cultures and procalcitonin within normal limits. Lactic acid within normal limits Right middle lobe opacity on the chest x-ray yesterday is not present on today's chest x-ray; symptomatically negative for pneumonia However, Sputum culture positive for some Gram-positive cocci in pairs initially and repeat sputum cultures negative for organisms preliminary. No signs of UTI Blood cultures show no growth in one day for urinalysis positive for calcium oxalate and uric acid crystals; continue hydration Currently on empirical management with vancomycin and Zosyn; will be discontinued 5. Normocytic and normochromic anemia: NG tube in place, suctioning coffee-ground emesis Awaiting EGD Continue aspirin and Plavix at this time as risk versus benefits are higher Monitor H&H closely Protonix b.i.d. for GI prophylaxis 6. Anion gap metabolic acidosis: Resolved Secondary to diabetic ketoacidosis and lactic acidosis Continue maintenance IV fluids Monitor for increasing oxygen demand from fluid overload. Daily chest x-rays Strict I&O monitoring 7. Seizure disorder: Continue home medications of Keppra 8. Chronic pain syndrome- continue gabapentin 300 mg t.i.d.; renal function improving and hence can be continued. 9. Agitation/irritability: Tox screen negative. Close monitoring for improvement, we will try to wean off of sedation as possible. Seroquel 50mg BID; taper accordingly as agitation decreases. Valium PRN for agitation. If patient continues to have abnormal behavior, consider CT head 10. Hematoma at insertion site: Compression bandaging present We will monitor pedal pulses and H&H daily Lines: PIV, right central line, Wallace's catheter DVT prophylaxis: SCDs GI prophylaxis: Protonix Diet: NPO, tube feeds in 24 hours Code status: Full code Erik Stein PGY3, Internal medicine resident Patient seen, findings discussed and examined under guidance of Dr. Gibran MD Date of Service: Jan 30, 2025 Billing Provider: ALISHA HEADLEY MD,ERIK, RES Jan 30, 2025 12:27
[2025-01-30] MEDS: normal saline 1000ml 1,000 ML IV SCH (12:58)
--- NOTE | 2025-01-30 17:44 | CARDIOLOGY REPORT ---
APPROVED REPORT EXAM: Comprehensive 2D, Doppler, and color-flow Echocardiogram. Patient Location: 2007 A Blood Pressure: 97/64 mmHg Heart Rate: 85 bpm Rhythm: SINUS w/FREQUENT PVCs Indications CORONARY ARTERY DISEASE ELEVATED PROBNP (2736) HS TROPONIN 3371, 7512, 61685 HYPERTENSION CAD S/P STENT X? 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, Previous echo: 11/24/24 [facility] (EF 55-60%, no Doppler due to uncooperative patient, trace MR, trace TR) 2D Dimensions IVSd 1.2 (0.7-1.1cm) LVDd 4.4 cm PWd 1.2 (0.7-1.1cm) IVSs 1.6 (0.8-1.2cm) LVDs 3.1 (2.5-4.0cm) PWs 1.8 (0.8-1.2cm) LVOT Diameter 2.08 (1.8-2.4cm) FS (%) 29.5 % SV 49.6 ml CO 4.9 L/min M-Mode Dimensions Left Atrium(MM) 3.52 (2.5-4.0cm) IVSd 1.26 (0.7-1.1cm) LVDd 5.00 (4.0-5.6cm) Aortic Root 4.61 (2.2-3.7cm) PWd 1.79 (0.7-1.1cm) Aortic Cusp Exc 0.91 (1.5-2.0cm) IVSs 1.32 cm LVDs 3.89 (2.0-3.8cm) FS (%) 20 % PWs 2.26 cm ESV(Teich) 50.3 ml LVEF(%) 42 (>50%) Aortic Valve AoV Peak Ankur. 289.4 cm/s AoV VTI 42.3 cm AO Peak GR. 33.5 mmHg AO Mean GR. 20 mmHg LVOT VTI 12.16 cm LVOT Peak Ankur. 84.2 cm/s KIYA(VTI)/BSA 0.98 cm2/m2 KIYA (VTI) 0.98 cm2 AV DI 0.29 % Mitral Valve MV E Velocity 48.2 cm/s MV DECEL TIME 176 ms MV A Velocity 63.4 cm/s MV PHT 60 ms E/A Ratio 0.8 MVA (PHT) 3.67 cm2 MV VMax 51.5 cm/s LEFT VENTRICLE Normal LV size and moderately reduced function. Mild concentric hypertrophy. LVEF is 40-45%. RIGHT VENTRICLE RV is not well visualized but appears at least mildly dilated with normal systolic function. ATRIA LA size appears grossly normal. AORTIC VALVE Trileaflet AV appears heavily calcified (best visualized subcostally, img 52) with significant stenosis demonstrated by reduced excursion and increased transvalvular and ascending aorta turbulance. KIYA: 0.98 cmsq; Pkv: 2.98 m/sec; Gradients: 34 / 20 mmHG. Stenosis severity is likely severe, but fails to meet criteria due to low flow, low gradient conditions. No insufficiency. Poor Doppler angles due to supine positioning and lack of adequate imaging windows, quantitative data must be clinically correlated. MITRAL VALVE Mild MV annular calcification without stenosis. Trace regurgitation. TRICUSPID VALVE TV appears structurally normal with trace regurgitation. PULMONIC VALVE Normal PV without stenosis, physiologic insufficiency. GREAT VESSELS Aortic root is dilated. PERICARDIUM Trace anteiror pericardial effusion without hemodynamic compromise vs. prominent anterior epicardial fat pad. Other Information Study Quality: Technically limited due to body habitus, patient supine/intubated. Conclusion Normal LV size and moderately reduced function. Mild concentric hypertrophy. LVEF is 40-45%. RV is not well visualized but appears at least mildly dilated with normal systolic function. LA size appears grossly normal. Trileaflet AV appears heavily calcified (best visualized subcostally, img 52) with significant stenosis demonstrated by reduced excursion and increased transvalvular and ascending aorta turbulance. KIYA: 0.98 cmsq; Pkv: 2.98 m/sec; Gradients: 34 / 20 mmHG. Stenosis severity is likely severe, but fails to meet criteria due to low flow, low gradient conditions. No insufficiency. Poor Doppler angles due to supine positioning and lack of adequate imaging windows, quantitative data must be clinically correlated. Mild MV annular calcification without stenosis. Trace regurgitation. TV appears structurally normal with trace regurgitation. Aortic root is dilated. Trace anteiror pericardial effusion without hemodynamic compromise vs. prominent anterior epicardial fat pad.
[2025-01-30] MEDS: mineral oil/petrolatum ophthal oint EACHEYE SCH (19:22)
--- NOTE | 2025-01-30 19:32 | PROGRESS NOTE- Residence ---
Progress Note - Resident Providers to CC Resident Creating Document: ALPHONSE DENIS RES ~ Antibiotic Timeout Antibiotic Ordered?: Yes Subjective Patient was seen and examined, on bedside patient has been extubated, he was confused Objective Vital Signs Date Time Temp Pulse Resp B/P (MAP) Pulse Ox O2 Delivery O2 Flow Rate FiO2 01/30/25 18:32 97.2 92 18 130/34 (66) 94 Nasal Cannula 2.0 01/30/25 11:00 30 Result Diagram: 01/30/25 0255 01/30/25 0150 General: Extubated, confused, Resp: Unlabored. Lungs clear to auscultation bilaterally. Heart: Regular Rate and rhythm, murmur loudest in the aortic area of grade 3/5, rub or gallop. Abdomen: Soft and non tender no organomegaly. Bowel sounds present. Abdominal bruit heard Extremities: No cyanosis,clubbing or edema. 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 Pupils equal and reactive to light. , could not perform detail examination as patient was confused Skin: Warm and Dry. bruising noted with some skin tears on the bilateral hands Coagulation Studies Laboratory Tests Test 01/27/25 23:41 01/30/25 01:50 APTT (Heparin Protocol) 106 SECONDS (45-60) *H Prothrombin Time 10.7 SECONDS (9.0-12.0) INR International Normalized Ratio 1.0 INR Activated Partial Thromboplast Time 22 SECONDS (22-32) Coagulation Comments Advance Care Planning Advanced Care plannin - 30 Minutes Assessment Assessment 74-year-old male patient presented to the hospital with chief complaint of chest pain. The patient was found with NSTEMI, Cardiology was consulted, coronary angiogram was performed on 01/27/2025. After the procedure the patient was transferred to the floor, during the night of 01/27/2025 the patient developed hypotension and acute hypoxemic respiratory failure reason for which the patient was intubated, started on vasopressors and transferred to ICU. Plan Plan Management as per ICU team. 1. Acute CHF exacerbation: Improved Acute hypoxemic respiratory failure secondary to above; CAD status post PTCA thrice; LCX stenting yesterday on 01/27/2025 Extubated today. Maintaining well saturations greater than 95% on 2 L oxygen Secondary cause of hypoxemic respiratory failure also from Versed use Echocardiogram obtained is positive for heart failure with reduced EF at 35% and severe aortic stenosis; poor overall prognosis Continue aspirin and Plavix daily Hold losartan and metoprolol, continue GDMT after stabilization 2. Gum-bemrojs-ehmmsdtce Type 2 diabetes mellitus: Uncontrolled A1c 10.3 On metformin 1000 mg daily at home, held On hyperglycemia/hypoglycemia protocol 3. Acute kidney injury: Resolved 4. Leukocytosis with left shift: Improving Under evaluation Likely reactive Sepsis workup negative Blood cultures and procalcitonin within normal limits. Lactic acid within normal limits However, Sputum culture positive for some Gram-positive cocci in pairs initially and repeat sputum cultures negative for organisms preliminary. No signs of UTI Blood cultures show no growth in one day for urinalysis positive for calcium oxalate and uric acid crystals; continue hydration Currently on empirical management with vancomycin and Zosyn; will be discontinued 5. Normocytic and normochromic anemia: HGB 7.8, hct 23.[address], suctioning coffee-ground emesis Awaiting EGD Continue aspirin and Plavix at this time as risk versus benefits are higher Monitor H&H closely Protonix 40 mg IV BID. 6. Anion gap metabolic acidosis: Resolved Secondary to diabetic ketoacidosis and lactic acidosis Continue maintenance IV fluids Monitor for increasing oxygen demand from fluid overload. Daily chest x-rays Strict I&O monitoring 7. Seizure disorder: Continue home medications of Keppra 8. Chronic pain syndrome- continue gabapentin 300 mg t.i.d.; renal function improving and hence can be continued. 9. Agitation/irritability: Tox screen negative. Close monitoring for improvement, we will try to wean off of sedation as possible. Seroquel 50mg BID; taper accordingly as agitation decreases. Valium PRN for agitation. If patient continues to have abnormal behavior, consider CT head 10. Hematoma at insertion site: Compression bandaging present We will monitor pedal pulses and H&H daily Lines: PIV, right central line, Wallace's catheter DVT prophylaxis: SCDs GI prophylaxis: Protonix Diet: NPO, tube feeds in 24 hours Code status: Full code Alphonse Denis PGY 1 IM Date of Service: Jan 30, 2025 Billing Provider: CHACE BRIONES MD Common Visit Codes: [id number] INP/OBS CARE(HIGH) ALPHONSE DENIS, VERNA Jan 30, 2025 19:32 CHACE BRIONES MD Jan 31, 2025 07:50
[2025-01-30] MEDS: HYDROcodone/acetaminophen 10/325mg tab PO PRN (20:31)
[2025-01-30] MEDS: VANCOMYCIN LEVEL IV ONE (23:57)
[2025-01-31] VITALS (25 sets, daily range): BP systolic 119–158; BP diastolic 45–80; PULSE 74–101; RESP 12–26; O2SAT 91–99
[2025-01-31 02:37] LABS: MEAN PLATELET VOLUME 8.3 FL (7.4-10.4); RED CELL DISTRIBUTION WIDTH 13.1 % (11.5-14.5)
[2025-01-31 02:47] LABS: INR 1.0 INR
[2025-01-31 02:52] LABS: CREATININE 0.88 MG/DL (0.60-1.10); PHOSPHORUS 2.5 MG/DL (2.3-4.5); TOTAL CARBON DIOXIDE 23.7 MMOL/L (24-32); eCRCL 74 ML/MIN; eGFR 84 ML/MIN
[2025-01-31] MEDS: potassium Cl 20mEq/100mL bag 100 ML IV PRN (03:04)
[2025-01-31] MEDS ORDERED: LIDOcaine 2% Viscous 15ml cup ONE (08:00)
[2025-01-31] MEDS ORDERED: simethicone 40mg/0.6ml oral drops 15ml ONE (08:00)
[2025-01-31] MEDS ORDERED: propofol 10mg/ml 20ml vial IV ONE (14:46)
--- NOTE | 2025-01-31 18:03 | PROGRESS NOTE- Residence ---
Progress Note - Resident Providers to CC Resident Creating Document: LUNA STEIN, VERNA ~ Central Line/PICC still needed: No Wallace-Non Protocol Wallace Indications Met/Not Met: F/C Indications Not Met Antibiotic Timeout Antibiotic Ordered?: No Subjective Patient is awake, alert and oriented with no acute distress. EGD performed today Objective Vital Signs Date Time Temp Pulse Resp B/P (MAP) Pulse Ox O2 Delivery O2 Flow Rate FiO2 01/31/25 17:00 97.9 93 16 151/71 (97) 95 Nasal Cannula 2.0 01/30/25 11:00 30 Result Diagram: 01/31/2520401/31/25 020 General: Comfortable and in no acute distress Neck: Right-sided IJV Resp: Unlabored. Lungs clear to auscultation bilaterally. Heart: Regular Rate and rhythm, pansystolic murmur loudest in the aortic area of grade 3/5, rub or gallop. Abdomen: Soft and non tender no organomegaly. Bowel sounds present. Abdominal bruit heard Extremities: No cyanosis,clubbing or edema. 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 No cranial nerve deficits. Pupils equal and reactive to light. No motor or sensory deficits Skin: Warm and Dry. Unkempt skin, bruising noted with some skin tears on the bilateral hands Coagulation Studies Laboratory Tests Test 01/27/25 23:41 01/30/25 01:50 01/31/25 02:05 APTT (Heparin Protocol) 106 SECONDS (45-60) *H Activated Partial Thromboplast Time 22 SECONDS (22-32) Prothrombin Time 10.3 SECONDS (9.0-12.0) INR International Normalized Ratio 1.0 INR Coagulation Comments Assessment Assessment 74-year-old male patient presented to the hospital with chief complaint of chest pain. The patient was found with NSTEMI, Cardiology was consulted, coronary angiogram was performed on 01/27/2025. After the procedure the patient was transferred to the floor, during the night of 01/27/2025 the patient developed hypotension and acute hypoxemic respiratory failure reason for which the patient was intubated, started on vasopressors and transferred to ICU. Patient self extubated on 01/30/2025, but he remained stable and in no acute distress. He has been downgraded to the floor today. Plan Plan 1. Acute CHF exacerbation: Resolved Acute hypoxemic respiratory failure secondary to above; resolved Medication induced cardiorespiratory depression; resolved Self extubated on 01/30/2025 CAD status post PTCA thrice; LCX stenting yesterday on 01/27/2025 Maintaining well saturations greater than 95% on 2 L oxygen Secondary cause of hypoxemic respiratory failure also from Versed use Echocardiogram obtained is positive for heart failure with reduced EF at 35% and severe aortic stenosis; poor overall prognosis Continue aspirin and Plavix daily Hold losartan and metoprolol, restart GDM T after stabilization Outpatient Cardiology referral at discharge 2. Fbf-qpteudq-jtqlcvhav Type 2 diabetes mellitus: Uncontrolled A1c 10.3 On metformin 1000 mg daily at home, held On hyperglycemia/hypoglycemia protocol Goal at 110-120 mg/dL Maintain carb controlled diet and heart healthy diet 3. Acute kidney injury: Resolved Prerenal etiology Likely secondary from hypotension Diminished output overnight through the Wallace's catheter Continue IVF I&O monitoring from Wallace's catheter 4. Leukocytosis with left shift: Improving Under evaluation Likely reactive Sepsis workup negative Final sputum cultures revealed positive normal sonal growth Currently on empirical management with vancomycin and Zosyn; will be discontinued 5. Normocytic and normochromic anemia: NG tube in place, suctioning coffee-ground emesis EGD performed today on 01/31/25; report reveaks presence of antral hyperemia and granular mucosa which was biopsied. Biopsy results to be followed Continue aspirin and Plavix Monitor H&H closely Protonix b.i.d. for GI prophylaxis 6. Anion gap metabolic acidosis: Resolved Secondary to diabetic ketoacidosis and lactic acidosis Continue maintenance IV fluids Monitor for increasing oxygen demand from fluid overload. Daily chest x-rays Strict I&O monitoring 7. Seizure disorder: Continue home medications of Budra 8. Chronic pain syndrome- continue gabapentin 300 mg t.i.d.; renal function improving and hence can be continued. 9. Agitation/irritability: Tox screen negative. Close monitoring for improvement, we will try to wean off of sedation as possible. Seroquel 50mg BID; taper accordingly as agitation decreases. Valium PRN for agitation. If patient continues to have abnormal behavior, consider CT head 10. Hematoma at insertion site: Clinically insignificant Compression bandaging resolved the hematoma Bilateral pedal pulses intact Lines: PIV, right central line DVT prophylaxis: SCDs GI prophylaxis: Protonix Diet: NPO, tube feeds in 24 hours Code status: Full code Luna Stein PGY3, Internal medicine resident Patient seen, findings discussed and examined under guidance of Dr. Gibran MD Date of Service: Jan 31, 2025 Billing Provider: ALISHA HEADLEY MD,LUNA, RES Jan 31, 2025 18:03
--- NOTE | 2025-01-31 19:52 | PROGRESS NOTE- Residence ---
Progress Note - Resident Providers to CC Resident Creating Document: KYLE DENIS RES ~ Antibiotic Timeout Antibiotic Ordered?: Yes Subjective Patient was seen and examined on bedside, reports he is feeling well reports no pain . Objective Vital Signs Date Time Temp Pulse Resp B/P (MAP) Pulse Ox O2 Delivery O2 Flow Rate FiO2 01/31/25 18:00 100 18 147/72 (97) 94 Nasal Cannula 2.0 01/31/25 17:00 97.9 01/30/25 11:00 30 Result Diagram: 02/01/25 0631 02/01/25 0631 General: Comfortable and in no acute distress Neck: Right-sided IJV Resp: Unlabored. Lungs clear to auscultation bilaterally. Heart: Regular Rate and rhythm, pansystolic murmur loudest in the aortic area of grade 3/5, rub or gallop. Abdomen: Soft and non tender no organomegaly. Bowel sounds present. Extremities: No cyanosis,clubbing or edema. 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 No cranial nerve deficits. Pupils equal and reactive to light. No motor or sensory deficits Skin: Warm and Dry. bruising noted with some skin tears on the bilateral hands Coagulation Studies Laboratory Tests Test 01/27/25 23:41 01/30/25 01:50 01/31/25 02:05 APTT (Heparin Protocol) 106 SECONDS (45-60) *H Activated Partial Thromboplast Time 22 SECONDS (22-32) Prothrombin Time 10.3 SECONDS (9.0-12.0) INR International Normalized Ratio 1.0 INR Coagulation Comments Advance Care Planning Advanced Care plannin - 30 Minutes Assessment Assessment 74-year-old male patient presented to the hospital with chief complaint of chest pain. The patient was found with NSTEMI, Cardiology was consulted, coronary angiogram was performed on 01/27/2025. After the procedure the patient was transferred to the floor, during the night of 01/27/2025 the patient developed hypotension and acute hypoxemic respiratory failure reason for which the patient was intubated, started on vasopressors and transferred to ICU. Patient self extubated on 01/30/2025, but he remained stable and in no acute distress. He has been downgraded to the floor today. Plan Plan MANAGEMENT PER ICU TEAM 1. Acute CHF exacerbation: Acute hypoxemic respiratory failure secondary to above CAD status post PTCA thrice; LCX stenting 01/27/2025 Maintaining well saturations greater than 95% on 2 L oxygen Secondary cause of hypoxemic respiratory failure also from Versed use Echocardiogram obtained is positive for heart failure with reduced EF at 35% and severe aortic stenosis; poor overall prognosis Continue aspirin and Plavix daily Hold losartan and metoprolol, Outpatient Cardiology referral at discharge 2. Pki-sozxckv-ezydbzmam Type 2 diabetes mellitus: Uncontrolled A1c 10.3 On metformin 1000 mg daily at home, held On hyperglycemia/hypoglycemia protocol Goal at 110-120 mg/dL Maintain carb controlled diet and heart healthy diet 3. Acute kidney injury: Resolved Prerenal etiology 4. Leukocytosis with left shift: Improving Under evaluation Likely reactive Sputum culture: GRAM STAIN: RARE PMN RARE CILIATED EPITHELIAL CELLS FEW GRAM POSITIVE COCCI IN PAIRS MODERATE GROWTH NORMAL RESPIRATORY SHAWNA ISOLATED. Currently on empirical management with vancomycin and Zosyn; 5. Normocytic and normochromic anemia: Hgb: 8 and Hct 24.2 EGD performed today on 01/31/25; reports showed presence of of antral hyperemia and granular mucosa which was biopsied. Biopsy results to be followed Continue aspirin and Plavix Monitor H&H closely Protonix b.i.d. for GI prophylaxis 6. Anion gap metabolic acidosis: Resolved 7. Seizure disorder: Continue home medications of Keppra 8. Chronic pain syndrome- continue gabapentin 300 mg t.i.d.; renal function improving and hence can be continued. 9. Agitation/irritability: Tox screen negative. Close monitoring for improvement, we will try to wean off of sedation as possible. Seroquel 50mg BID; taper accordingly as agitation decreases. Valium PRN for agitation. If patient continues to have abnormal behavior, consider CT head DVT prophylaxis: SCDs GI prophylaxis: Protonix Code status: Full code Disposition: Patient has been extubated patient has improved possible downgrade to PCU tomorrow. Kyle Denis PGY 1 IM Addendum ac bl loss anemia 2 to hematoma hypovolemic shock 2 to bl loss/hematoma ac resp fail 2 to hypovolemic shock, required mechanical ventilation Date of Service: Jan 31, 2025 Billing Provider: CHACE BRIONES MD Common Visit Codes: [id number] INP/OBS CARE(HIGH) KYLE DENIS, VERNA Jan 31, 2025 19:52 CHACE BRIONES MD Feb 04, 2025 07:13
[2025-02-01] VITALS: BP 148/77; PULSE 73; RESP 22; O2SAT 98
[2025-02-01 01:25] VITALS: BP 144/68; PULSE 85; RESP 18; TEMP 97.4; O2SAT 99
[2025-02-01 06:00] VITALS: BP 154/72; PULSE 71; RESP 15; TEMP 97.4; O2SAT 97
[2025-02-01] MEDS: INSULIN LISPRO 100 UNIT/ML INSULN.PEN MULTI-DOSE SQ SCH (07:00)
[2025-02-01 07:21] LABS: MEAN PLATELET VOLUME 8.0 FL (7.4-10.4); RED CELL DISTRIBUTION WIDTH 13.2 % (11.5-14.5)
[2025-02-01 07:23] LABS: INR 1.0 INR
[2025-02-01 07:31] LABS: CREATININE 0.87 MG/DL (0.60-1.10); PHOSPHORUS 2.5 MG/DL (2.3-4.5); TOTAL CARBON DIOXIDE 28.1 MMOL/L (24-32); eCRCL 75 ML/MIN; eGFR 85 ML/MIN
[2025-02-01 08:00] VITALS: RESP 18
[2025-02-01] MEDS: potassium Cl 20 mEq SR tablet PO PRN (09:52)
[2025-02-01] MEDS ORDERED: CLOP75TA34 OGT (10:14)
[2025-02-01] MEDS ORDERED: PANT-47 PO (10:14)
[2025-02-01] MEDS ORDERED: ATOR20TA66 OGT (10:14)
[2025-02-01 11:00] VITALS: BP 142/84; PULSE 100; RESP 15; TEMP 97.6; O2SAT 96
--- NOTE | 2025-02-01 11:29 | PROGRESS NOTE- Residence ---
Progress Note - Resident Providers to CC Resident Creating Document: RICHAR MCKEON, VERNA ~ Antibiotic Timeout Antibiotic Ordered?: Yes Subjective Patient was seen and examined on bedside, reports he is feeling well reports no pain . Objective Vital Signs Date Time Temp Pulse Resp B/P (MAP) Pulse Ox O2 Delivery O2 Flow Rate FiO2 02/01/25 08:00 18 Nasal Cannula 2.0 02/01/25 06:30 89 02/01/25 06:00 97.4 154/72 (99) 97 01/31/25 22:18 28 Result Diagram: 02/01/25 0631 02/01/25630 Coagulation Studies Laboratory Tests Test 01/27/25 23:41 01/30/25 01:50 02/01/25 06:31 APTT (Heparin Protocol) 106 SECONDS (45-60) *H Activated Partial Thromboplast Time 22 SECONDS (22-32) Prothrombin Time 10.1 SECONDS (9.0-12.0) INR International Normalized Ratio 1.0 INR Coagulation Comments Plan Plan Assessment: Patient is a 74-year-old male with CAD s/p stent to the circumflex. Patient presented with coffee-ground emesis after PCI and intubation. He also had a drop in hemoglobin of about 5g since the time of admission which raised concerns for upper upper GI bleed. He underwent endoscopy yesterday which showed diffuse gastric mucosal eyrthema. His H&H has remained stable since the past 2 days after blood transfusion. He has had no more episodes of nausea/ vomiting. No episodes of melena and hematochezia reported either. He was downgraded to PCU yesterday and continues to remain hemodynamically stable. Recommendations: - Continue monitoring H&H - Continue Protonix 40 mg iv daily Other comorbidities managed per station helper and Cardiology Patient has been discussed in detail with attending physician, Dr. Bam Mckeon, Internal Medicine, PGY 1 [facility] Date of Service: Feb 01, 2025 Billing Provider: EDDIE JI MD, SHIVANI, VERNA Feb 01, 2025 11:29
--- NOTE | 2025-02-01 19:41 | DISCHARGE SUMMARY-Residence ---
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 Coronary Artery Disease s/p stent Type 2 diabetes mellitus Acute kidney injury likely secondary to renal tubular stasis Normocytic and normochromic anemia Operations\Procedures: * Left heart catheterization. * Left ventriculography. * Selective coronary arteriography. * PTCA/stent placement (distal circumflex coronary artery). * Intracoronary Aggrastat. EGD. Consultants: Carbide Tool Die Maker Gasteroenterologist Complications: Postoperatively hypotension and acute hypoxemic respiratory failure Condition on DC: Stable New Medications: Pantoprazole Sodium (PROTONIX tablet) 40 Mg Tablet.dr 40 MG PO DAILY for 30 Days, #30 TAB.SR Atorvastatin Calcium (Atorvastatin Calcium) 20 Mg Tablet 80 MG OGT DAILY, #120 TAB Clopidogrel Bisulfate (Clopidogrel) 75 Mg Tablet 75 MG OGT DAILY, #30 TAB Do not stop medication unless instructed by prescriber. Continued Medications: Acetaminophen (Tylenol) 325 Mg Tablet 1 TAB PO Q6H PRN for pain Aspirin (Aspirin EC) 81 Mg Tablet.dr 1 TAB PO DAILY Duloxetine HCl (Duloxetine HCl) 30 Mg Capsule.dr 1 CAP PO BID Gabapentin (Neurontin) 300 Mg Capsule 3 CAP PO BID for MIGRAINE Levetiracetam (Levetiracetam) 750 Mg Tab.er.24h 1 TAB PO Q12H Losartan Potassium* (Cozaar*) 25 Mg Tablet 1 TAB PO DAILY Metformin Hcl* (Metformin ER*) 500 Mg Tab.sr.24h 2 TAB PO QPM Methocarbamol (Methocarbamol) 750 Mg Tablet 1 TAB PO Q6H for PAIN, TAB 0 Refills Methyl Salicylate/Menthol (Muscle Rub 15%-10% Cream) 15 %-10 % Cream..g. 1 APPLIC TOP TID PRN for MUSCLE PAIN Metoprolol Succinate* (Toprol Xl*) 25 Mg Tab.sr.24h 1 TAB PO DAILY ONDANSETRON ODT 4mg tablet (Ondansetron Odt) 4 Mg Tab.rapdis 1 TAB PO Q6H PRN PRN for nausea/vomiting, TAB 0 Refills Discontinued Medications: Atorvastatin Calcium* (Lipitor*) 40 Mg Tablet 1 TAB PO DAILY Omeprazole (Omeprazole) 20 Mg Capsule.dr 1 CAP PO HS, #30 CAP 0 Refills Discharge Summary: Hospital Course This is a 74-year-old male with past medical history of diabetes mellitus type 2, hypertension, coronary artery disease s/p stent presented in ER with complain of chest pain aback pain and coffee ground emesis,In view of chest pain trops were ordered which were trending upward tx [id number], NSTEMI was diagnosed, Cardiology was consulted and patient underwent LCX stenting 01/27/2025, after the procedure patient developed hypotension and acute hypoxemic respiratory failure for which patient was intubated and started on vasopressors and transfered to ICU.Patient was eventually extubated and was transfered to floor.aspirin and plavix were started.In addition to his coffee ground emesis, and drop in Hgb, EGD performed on 01/31/25; revealed, presence of antral hyperemia and granular mucosa ,biopsy was taken. Apart from that patient home medication keppra was continued for his seizure disorder. Patient was stable and ready for discharge. Discharge Instructions CONTINUE PROTONIX 40 MG DAILY FOR 30 DAYS. CONTINUE PLAVIX AND ASPIRIN YOU HAVE HAD A RECENT STENT PLACED. YOU ARE ON BLOOD PRESSURE MEDS METOOPROLOL AND LOSARTAN, CHECK BP EVERY MORNING AND HOLD IF SBP LESS THAN 100 AND HR LESS THAN 60. FOLLOW UP WITH PCP WITHIN A WEEK AND GET A REFERRAL TO SEE A HOSPITAL FELLOW. IF CONDITION WORSENS CALL 911 OR GO TO THE NEAREST ER IMMEDIATELY. Physical examination General: awake, alert oriented to place, time, and person HEENT: No pallor present, no icterus, moist mucous membranes Neck: No masses and tenderness Resp: Unlabored. Lungs clear to auscultation bilaterally. Chest: Normal expansion. Cardiovascular: HR elevated and regular rhythm, normal S1 and S2 without murmur, rub or gallop Abdomen: Soft and non tender in epigastrium, no organomegaly, no guarding and rigidity, bowel sounds present Neuro: No focal weakness in the upper muscles, power of the muscles 5/5 bilateral upper extremities,normal reflexes bilaterally. Cranial nerves intact Extremities: No cyanosis,clubbing or edema Skin: Warm and Dry. Psych: Normal affect Laboratory Tests Test 01/31/25 09:50 01/31/25 14:30 01/31/25 20:20 02/01/25 06:31 Glucometer 93 mg/dl 89 mg/dl 176 mg/dl White Blood Count 11.0 X10'3 Red Blood Count 2.80 X10'6 Hemoglobin 8.5 g/dl Hematocrit 25.3 % Mean Corpuscular Volume 90.6 FL Mean Corpuscular Hemoglobin 30.4 PG Mean Corpuscular Hemoglobin Concent 33.6 g/dL Red Cell Distribution Width 13.2 % Platelet Count 246 X10'3 Mean Platelet Volume 8.0 FL Neutrophils (%) (Auto) 61.1 % Lymphocytes (%) (Auto) 19.2 % Monocytes (%) (Auto) 14.2 % Eosinophils (%) (Auto) 4.9 % Basophils (%) (Auto) 0.6 % Neutrophils # (Auto) 6.7 X10'3 Lymphocytes # (Auto) 2.1 X10'3 Monocytes # (Auto) 1.6 X10'3 Eosinophils # (Auto) 0.5 X10'3 Basophils # (Auto) 0.1 X10'3 CBC Comment Prothrombin Time 10.1 SECONDS INR International Normalized Ratio 1.0 INR Coagulation Comments Sodium Level 147 MMOL/L Potassium Level 3.7 MMOL/L Chloride Level 111 MMOL/L Carbon Dioxide Level 28.1 MMOL/L Anion Gap 8 Blood Urea Nitrogen 14 MG/DL Creatinine 0.87 MG/DL Estimated GFR/1.73 m2 85 ML/MIN BUN/Creatinine Ratio 16.1 Glucose Level 68 MG/DL Calcium Level 7.6 MG/DL Phosphorus Level 2.5 MG/DL Magnesium Level 2.3 MG/DL Total Bilirubin 0.7 MG/DL Aspartate Amino Transf (AST/SGOT) 40 U/L Alanine Aminotransferase (ALT/SGPT) 19 U/L Alkaline Phosphatase 75 IU/L Total Protein 5.5 G/DL Albumin 2.5 G/DL Globulin 3.0 G/DL Albumin/Globulin Ratio 0.8 Chemistry Comments Test 02/01/25 07:24 Glucometer 80 mg/dl Imaging Echo Conclusion Normal LV size and moderately reduced function. Mild concentric hypertrophy. LVEF is 40-45%. RV is not well visualized but appears at least mildly dilated with normal systolic function. LA size appears grossly normal. Trileaflet AV appears heavily calcified (best visualized subcostally, img 52) with significant stenosis demonstrated by reduced excursion and increased transvalvular and ascending aorta turbulance. KIYA: 0.98 cmsq; Pkv: 2.98 m/sec; Gradients: 34 / 20 mmHG. Stenosis severity is likely severe, but fails to meet criteria due to low flow, low gradient conditions. No insufficiency. Poor Doppler angles due to supine positioning and lack of adequate imaging windows, quantitative data must be clinically correlated. Mild MV annular calcification without stenosis. Trace regurgitation. TV appears structurally normal with trace regurgitation. Aortic root is dilated. Trace anteiror pericardial effusion without hemodynamic compromise vs. prominent anterior epicardial fat pad. Cardiac Cathertization Report CONCLUSIONS: 1. Obstructive coronary artery disease primarily manifested as a new eccentric 99% stenosis in the distal circumflex between a large first obtuse marginal and a large posterolateral branch. 2. Successful PTCA/stent placement directed at the lesion just described. Following the intervention, there was no significant residual stenosis and NABIL grade 3 flow following the intervention. 3. Left ventricular function is mildly reduced. There is inferoapical and posterobasal hypokinesis. The estimated LVEF was 45%. *Problems/Diagnosis: (1) Chest pain Status: Resolved Total Time Spent on D/C: > 30 Minutes Date of Service: Feb 02, 2025 Billing Provider: CHACE BRIONES MD Common Visit Codes: 95701-PJQ/OBS DISCH DAY >30min Problem Qualifiers (1) Chest pain: Chest pain type: unspecified Qualified Codes: R07.9 - Chest pain, unspecified ALPHONSE DENIS, RES Feb 01, 2025 19:41 CHACE BRIONES MD Feb 03, 2025 08:38
[2025-02-07] MEDS ORDERED: METH-798 PO (10:18)
[2025-02-07] MEDS ORDERED: METF-900 PO (10:18)
== END 2025-02-01 14:40 | disposition home or self-care (01) | DRG 321 ==
LOC: ER 14:01 → ED HOLD 15:33 → PCU 3S 20:15 → CICU 2S 01-28 02:18 → PCU 3S 02-01 01:28
PROVIDERS: ADMIT Internal Medicine; ATTEND Internal Medicine
PROC: 027034Z Dilation of Coronary Artery, One Artery with Drug-eluting Intraluminal Device, Percutaneous Approach (ICD-10-PCS; 2025-01-27)
PROC: 3E073PZ Introduction of Platelet Inhibitor into Coronary Artery, Percutaneous Approach (ICD-10-PCS; 2025-01-27)
PROC: 4A023N7 Measurement of Cardiac Sampling and Pressure, Left Heart, Percutaneous Approach (ICD-10-PCS; 2025-01-27)
PROC: B2111ZZ Fluoroscopy of Multiple Coronary Arteries using Low Osmolar Contrast (ICD-10-PCS; 2025-01-27)
PROC: 0BH17EZ Insertion of Endotracheal Airway into Trachea, Via Natural or Artificial Opening (ICD-10-PCS; principal; 2025-01-28)
PROC: 5A1945Z Respiratory Ventilation, 24-96 Consecutive Hours (ICD-10-PCS; 2025-01-28)
PROC: 0DB78ZX Excision of Stomach, Pylorus, Via Natural or Artificial Opening Endoscopic, Diagnostic (ICD-10-PCS; 2025-01-31)
DX: I21.4 Non-ST elevation (NSTEMI) myocardial infarction (principal); E11.10 Type 2 diabetes mellitus with ketoacidosis without coma; J96.01 Acute respiratory failure with hypoxia; N17.0 Acute kidney failure with tubular necrosis; I50.23 Acute on chronic systolic (congestive) heart failure; K25.4 Chronic or unspecified gastric ulcer with hemorrhage; I35.0 Nonrheumatic aortic (valve) stenosis; D64.9 Anemia, unspecified; G40.909 Epilepsy, unspecified, not intractable, without status epilepticus; G89.4 Chronic pain syndrome; I95.81 Postprocedural hypotension; K31.89 Other diseases of stomach and duodenum; I25.10 Atherosclerotic heart disease of native coronary artery without angina pectoris; M54.50 Low back pain, unspecified; E86.0 Dehydration; Z79.82 Long term (current) use of aspirin; Z79.899 Other long term (current) drug therapy; Z79.84 Long term (current) use of oral hypoglycemic drugs; Z87.891 Personal history of nicotine dependence
CPT/HCPCS: 43239; 93306; 93458; 96365; 96375; 99285; C9600; 36415; 36600; 71045; 80048; 80053; 80061; 80202; 80305; 81001; 82803; 82948; 83036; 83605; 83735; 83880; 84100; 84134; 84145; 84478; 84484; 85007; 85018; 85025; 85027; 85610; 85730; 87040; 87070; 87081; 93005; 94002; 94003; 94760; 99152; 99153; A4349; A4615; A4620; A6212; A6213; A6222; A6258; A6449; A6455; A9900; C1725; C1751; C1769; C1874; C1887; C1894; G0378; J0780; J1171; J1644; J1815; J1953; J2003; J2250; J2371; J2405; J2470; J2543; J2704; J3010; J3246; J3360; J3373; J3375; J3480; J3490; J7030; J7040; J7120; Q9967

== ENCOUNTER 2025-02-16 13:44 | Inpatient (IN) | payer OTHER, MEDICARE ==
[~2025-02-16] VITALS: Ht 177.8 cm; Wt 63.6 kg
[~2025-02-16 13:44] MED LIST changes: -AMLO-140 PO; -ASPI-1265 PO; +ASPI-1397 PO; -ATOR-2 PO; +ATOR20TA66 OGT; +CLOP75TA34 OGT; -COSAMIN PO; -DULO60CA65 PO; -GABA-1405 PO; -GABA-535 PO; +GABA300C PO; -HYDR-3965 PO; -IBUP-1984 PO; +LEVE750T85 PO; -LIDO700A47 TOP; -LISI40TA20 PO; -LORA-512 PO; +LOSA-415 PO; -MAGN100C4; -MEGA RED OMEGA PO; -METF-436 PO; +METH85CR31 TOP; +METO-539 PO; -OMEP-419 PO; -OMEP20CA15 PO; +PANT-47 PO; -[UNRECOGNIZED DRUG - OTHER] PO
--- NOTE | 2025-02-16 14:13 | Physician Documentation ---
History of Present Illness ~ General Chief Complaint: See Chief Complaint Stated Complaint: ALOC/COLD Time Seen by MD: 14:03 Source: patient Mode of Arrival: POV Exam Limitations: no limitations History of Present Illness Initial Comments 74-year-old male brought in by EMS after being notified that the patient was dressed and appropriately for the weather and had no means of warmth in his trailer that was filled with animals. Patient had no protein for heating. Per EMS the living situation was uninhibited a boil with feces and animals throughout the trailer. Patient states he had heart attack and was in the hospital last week Medication Reconciliation Allergies: Coded Allergies: No Known Allergies (Unverified , 11/24/24) Scheduled Aspirin (Aspirin EC), 1 TAB PO DAILY, (Reported) Atorvastatin Calcium (Atorvastatin Calcium), 80 MG OGT DAILY Clopidogrel Bisulfate (Clopidogrel), 75 MG OGT DAILY Duloxetine HCl (Duloxetine HCl), 1 CAP PO BID, (Reported) Gabapentin (Neurontin), 3 CAP PO BID, (Reported) Levetiracetam (Levetiracetam), 1 TAB PO Q12H, (Reported) Losartan Potassium* (Cozaar*), 1 TAB PO DAILY, (Reported) Metformin Hcl* (Metformin ER*), 2 TAB PO BID Metoprolol Succinate* (Toprol Xl*), 1 TAB PO DAILY, (Reported) Pantoprazole Sodium (PROTONIX tablet), 40 MG PO DAILY Scheduled PRN Acetaminophen (Tylenol), 1 TAB PO Q6H PRN for pain, (Reported) Methocarbamol (Methocarbamol), 1 TAB PO Q8H PRN for muscle spasms Methyl Salicylate/Menthol (Muscle Rub 15%-10% Cream), 1 APPLIC TOP TID PRN for MUSCLE PAIN, (Reported) ONDANSETRON ODT 4mg tablet (Ondansetron Odt), 1 TAB PO Q6H PRN PRN for nausea/vomiting, (Reported) Past Medical History Past Medical History: *CARDIOVASCULAR*, Diabetes, Chronic Back Pain Patient History: FH: alcohol abuse FATHER, MOTHER, FH: alcohol abuse FATHER, MOTHER, Lives with: Alone Lives In: Home Occupation: disabled Review of Systems All Other Systems at this time: Reviewed and Negative Constitutional: Reports: see HPI Physical Exam Physical Exam Vital Signs: RN Vital Signs have been reviewed: Yes, Temperature: 98.9, Source: Oral, Heart Rate: 98, Respiratory Rate: 17, BP: 139/86, Pulse Oximetry: 100, Weight: 63.600 Physical Exam General: Alert, no apparent distress. HEENT: PERRL, EOMI, no injection, moist mucous membranes. Neck: Full range of motion. Respiratory: Lungs clear, no respiratory distress decreased breath sounds posteriorly Chest: No accessory muscle use. Cardiovascular: Regular rate and rhythm, 3/6 systolic murmur Extremities: Normal range of motion, no deformity. Neurologic: Oriented x2 he is aware of year and month answering questions but unaware of situation Psychiatric: Disheveled and unkept Skin: Normal color, warm and dry. No edema, no ecchymosis. Progress Results/Orders Results/Orders Orders - YENI NGUYEN MANAGER MASS Electrocardiogram (02/16/25 14:13) Accucheck (02/16/25 14:13) Chest,Single View (02/16/25 14:13) Ct Head (02/16/25 14:13) Monitor (02/16/25 14:13) Saline Lock (02/16/25 14:13) Normal Saline 1000ml (0.9% Sodium Chlori (02/16/25 15:15) Page Hospitalist (02/16/25 15:19) Fill Out Med Reconciliation (02/16/25 15:19) Completed Orders - YENI NGUYEN MANAGER MASS Electrocardiogram (02/16/25 14:13) Cbc/Diff (02/16/25 14:13) Chest,Single View (02/16/25 14:13) Ct Head (02/16/25 14:13) Ethanol (02/16/25 14:13) Drug Screen, Urine (02/16/25 14:13) BMP (02/16/25 14:13) Hs Troponin I W Calculations (02/16/25 14:13) Insulin Regular, Human (Humulin R 10 Uni (02/16/25 15:15) LA (02/16/25 15:14) Ua W/Microscopic, Cult If Ind (02/16/25 15:20) Lactic,2hr (02/16/25 16:47) Medications Received in ER Medications (Trade) Dose Ordered Sig/Xavier Route PRN Reason Start Time Stop Time Status Last Admin Dose Admin Sodium Chloride 1,000 ml @ 100 mls/hr Q10H ONCE IV 02/16/25 15:15 02/17/25 01:14 02/16/25 15:32 100 MLS/HR ([place] 5/325mg tablet) 1 tab Q4H PRN PO MODERATE PAIN 4-6 02/16/25 15:35 02/16/25 20:04 1 TAB Vital Signs 02/16/25 02/16/25 02/16/25 02/16/25 13:52 14:18 14:18 15:51 Temp 98.9 Pulse 98 101 103 Resp 17 18 16 31 B/P (MAP) 139/86 137/84 (101) 157/90 (112) Pulse Ox 100 98 99 O2 Flow Rate 0 0 Laboratory Tests Test 02/16/25 14:32 02/16/25 14:40 02/16/25 15:20 Glucometer 344 H White Blood Count 15.4 H Red Blood Count 4.11 L Hemoglobin 12.2 L Hematocrit 36.8 L Mean Corpuscular Volume 89.6 Mean Corpuscular Hemoglobin 29.6 Mean Corpuscular Hemoglobin Concent 33.0 Red Cell Distribution Width 14.2 Platelet Count 595 H Mean Platelet Volume 6.7 L Neutrophils (%) (Auto) 77.4 H Lymphocytes (%) (Auto) 12.2 L Monocytes (%) (Auto) 9.4 Eosinophils (%) (Auto) 0.3 Basophils (%) (Auto) 0.7 Neutrophils # (Auto) 11.9 H Lymphocytes # (Auto) 1.9 Monocytes # (Auto) 1.4 H Eosinophils # (Auto) 0.0 Basophils # (Auto) 0.1 CBC Comment Sodium Level 135 Potassium Level 4.6 Chloride Level 100 Carbon Dioxide Level 28.2 Anion Gap 7 L Blood Urea Nitrogen 20 H Creatinine 1.24 H Estimated GFR/1.73 m2 57 BUN/Creatinine Ratio 16.1 Glucose Level 339 H Lactic Acid Level 2.1 H Calcium Level 8.9 Troponin I High Sensitivity 32 Albumin 3.1 L Chemistry Comments Ethyl Alcohol Level < 10 Urine Specimen Description Urinal Urine Color Dark yellow Urine Clarity Clear Urine pH 6.5 Urine Specific [place] 1.025 Urine Protein 100 H Urine Glucose (UA) 500 H Urine Ketones Trace H Urine Occult Blood Negative Urine Nitrite Negative Urine Bilirubin Moderate Urine Urobilinogen 2.0 H Urine Leukocyte Esterase Negative Urine RBC None seen Urine WBC 0-4 Urine Squamous Epithelial Cells Few Urine Bacteria Few Urine Hyaline Casts 3-5 Urine Fine Granular Casts 3-5 Urine Mucus Few Urine Culture Indicated Not ind Volume Urine Centrifuged 10 ml Urine Comment Urine Opiates Screen Negative Urine Methadone Screen Negative Urine Fentanyl Screen Negative Urine Barbiturates Screen Negative Urine Phencyclidine Screen Negative Urine Amphetamines Screen Negative Urine Benzodiazepines Screen Positive Urine Cocaine Screen Negative Urine Cannabinoids Screen Positive Drug Screen Comment EKG/XRAY/CT/US/VASC/MRI EKG : Additional Comment 1423: Sinus rhythm at 97 beats per minute left anterior fascicular block no acute ST-T abnormalities. Chest X-Ray : Additional Comments CHEST RADIOGRAPH Indication: aloc Technique: Single frontal view of the chest was obtained Comparison: DI CHEST,SINGLE VIEW on DOS: 02/05/25, DI CHEST,SINGLE VIEW on DOS: 01/30/25, DI CHEST,SINGLE VIEW on DOS: 01/29/25 FINDINGS: Lines and Tubes: None Lungs: No focal consolidation. Pleura: No effusion. No pneumothorax. Cardiomediastinal contours: Unremarkable Bones: No acute osseous abnormality. Right-sided approach ventriculoperitoneal shunt catheter extending from the right neck to the right upper abdomen which appears intact. IMPRESSION: No acute cardiopulmonary disease. : Impression EXAM: CT CT HEAD INDICATION: aloc COMPARISON: None TECHNIQUE: CT of the head without intravenous contrast. Radiation Dose Information: CT Dose: CTDI volume is 64 mGy. Dose-length product is 1170 mGy*cm The dose indicators for CT are the volume Computed Tomography (CT) Dose Index (CTDIvol) and the Dose Length Product (DLP), and are measured in units of mGy and mGy-cm, respectively. These indicators are not patient dose, but values generated from the CT scanner acquisition factors. The report includes radiation exposure data for exposures received during this examination. Findings: Scattered hypoattenuation in the periventricular and subcortical white matter, suggestive of chronic microvascular disease. Right frontal ventricular catheter in place with partially decompressed right lateral ventricle. There is no mass- effect, hemorrhage, midline shift, or abnormal extra-axial fluid collection visible. No calvarial fracture. Scattered mucosal thickening of the paranasal sinuses. Mastoid air cells are clear. IMPRESSION: No acute intracranial hemorrhage or mass effect. Right frontal ventricular catheter in place with partially decompressed right lateral ventricle. Medical Decision Making Additional information obtaine: old records Findings Patient had a PTCA stent placed by Dr. Martinez on January 27, 2025 there has been a few visits for chest pain. Two days visit is reduced to the potential of gravely disabled, weakness, confusion patient out in the cold with inappropriate clothing and inappropriate housing situation with multiple pets including dogs and birds. Patient had no means to heat his home. Patient's WBC count is 15 awaiting pending urine. Vital signs are reassuring due to patient's confusion and inappropriateness with weather clothing and housing discussed with supervising physician we will admit for metabolic encephalopathy. Medical noncompliance with medications patient's blood sugar is above 300. Differential Diagnosis Weakness, hepatic encephalopathy, stroke, sepsis, UTI, gravely disabled. Departure Time of Disposition: 15:39 Disposition: 02 SHORT TERM HOSPITAL Impression: Primary Impression: Metabolic encephalopathy Additional Impressions: Confusion Noncompliance with medication regimen History of non-ST elevation myocardial infarction (NSTEMI) Hyperglycemia due to diabetes mellitus Condition: Fair Referrals: NO PRIMARY CARE PROVIDER (PCP) Education Educated: Patient Educated regarding: diagnosis, treatment, need for follow up Signature Scribe Signature: No scribe Attestation: The note accurately reflects work and decisions made by me.Yeni HELTON 02/16/25 14:13 YENI NGUYEN NP Feb 16, 2025 14:13
--- NOTE | 2025-02-16 14:25 | ELECTROCARDIOGRAPH REPORT ---
[facility] Test Date: 2025-02-16 Test Time: 14:23:14 Pat Name: HUGO MULLINS Department: [facility]- Patient ID: [facility]-[id number] Room: [place] [id number] Gender: M Manager Ct: : 1950 Requested By: JEANETTE NGUYEN Order Number: [id number] Reading MD: Dr. Dereje Todd Measurements Intervals [place] Rate: 97 P: 58 NH: 184 QRS: -60 QRSD: 97 T: -4 QT: 374 QTc: 475 Interpretive Statements Sinus rhythm Probable left atrial enlargement Left anterior fascicular block Borderline low voltage, extremity leads Borderline prolonged QT interval Electronically Signed On 02-16-2025 18:10:[address] Dereje Todd Please click the below link to view image of tracing.
--- NOTE | 2025-02-16 14:41 | RADIOLOGY REPORT ---
CHEST RADIOGRAPH Indication: aloc Technique: Single frontal view of the chest was obtained Comparison: DI CHEST,SINGLE VIEW on DOS: 02/05/25, DI CHEST,SINGLE VIEW on DOS: 01/30/25, DI CHEST,SINGLE VIEW on DOS: 01/29/25 FINDINGS: Lines and Tubes: None Lungs: No focal consolidation. Pleura: No effusion. No pneumothorax. Cardiomediastinal contours: Unremarkable Bones: No acute osseous abnormality. Right-sided approach ventriculoperitoneal shunt catheter extending from the right neck to the right upper abdomen which appears intact. IMPRESSION: No acute cardiopulmonary disease.
[2025-02-16 14:53] LABS: MEAN PLATELET VOLUME 6.7 FL (7.4-10.4); RED CELL DISTRIBUTION WIDTH 14.2 % (11.5-14.5)
--- NOTE | 2025-02-16 15:13 | RADIOLOGY REPORT ---
EXAM: CT CT HEAD INDICATION: aloc COMPARISON: None TECHNIQUE: CT of the head without intravenous contrast. Radiation Dose Information: CT Dose: CTDI volume is 64 mGy. Dose-length product is 1170 mGy*cm The dose indicators for CT are the volume Computed Tomography (CT) Dose Index (CTDIvol) and the Dose Length Product (DLP), and are measured in units of mGy and mGy-cm, respectively. These indicators are not patient dose, but values generated from the CT scanner acquisition factors. The report includes radiation exposure data for exposures received during this examination. Findings: Scattered hypoattenuation in the periventricular and subcortical white matter, suggestive of chronic microvascular disease. Right frontal ventricular catheter in place with partially decompressed right lateral ventricle. There is no mass- effect, hemorrhage, midline shift, or abnormal extra-axial fluid collection visible. No calvarial fracture. Scattered mucosal thickening of the paranasal sinuses. Mastoid air cells are clear. IMPRESSION: No acute intracranial hemorrhage or mass effect. Right frontal ventricular catheter in place with partially decompressed right lateral ventricle.
[2025-02-16] MEDS ORDERED: insulin regular, human 10 units/0.1 ml syringe IV ONE (15:15)
[2025-02-16 15:21] LABS: CREATININE 1.24 MG/DL (0.60-1.10); TOTAL CARBON DIOXIDE 28.2 MMOL/L (24-32); eCRCL 46 ML/MIN; eGFR 57 ML/MIN
[2025-02-16 15:27] LABS: ETHANOL < 10 MG/DL (<10)
[2025-02-16] MEDS: normal saline 1000ml 1,000 ML IV ONE (15:32)
[2025-02-16] MEDS ORDERED: magnesium Cl slow-release 64mg tablet PO PRN (15:35)
[2025-02-16] MEDS ORDERED: potassium Cl 40MEQ/1/2NS 520ml 520 ML IV PRN (15:35)
[2025-02-16] MEDS ORDERED: ondansetron/PF 4mg/2ml inj IV PRN (15:35)
[2025-02-16] MEDS ORDERED: magnesium hydroxide 30ml (MOM) UD suspension PO PRN (15:35)
[2025-02-16] MEDS ORDERED: magnesium sulf-water 4G/100mL 100 ML IV PRN (15:35)
[2025-02-16] MEDS ORDERED: potassium Cl 20 mEq SR tablet PO PRN ×2 (15:35)
[2025-02-16] MEDS ORDERED: magnesium sulf-water 2g/50mL 50 ML IV PRN (15:35)
[2025-02-16] MEDS ORDERED: mag hydrox/Alum hydrox/simeth 30ml oral suspension PO PRN (15:35)
[2025-02-16 15:49] LABS: LEUKOCYTE ESTERASE ,URINE NEGATIVE (Neg); NITRITES, URINE NEGATIVE (Neg); OCCULT BLOOD,URINE NEGATIVE (Neg)
[2025-02-16 15:57] LABS: UA COLLECTION TYPE URINAL
[2025-02-16 16:00] LABS: MUCUS STRANDS FEW /LPF (Neg); SQUAMOUS EPITHELIAL CELL,UR FEW /LPF (FEW)
[2025-02-16 16:01] LABS: URINE AMPHETAMINE SCREEN NEGATIVE (Neg); URINE BARBITUATE SCREEN NEGATIVE (Neg); URINE BENZODIAZEPINES SCREEN POSITIVE (Neg); URINE CANNABINOID SCREEN POSITIVE (Neg); URINE COCAINE SCREEN NEGATIVE (Neg); URINE METHADONE SCREEN NEGATIVE (Neg); URINE OPIATE SCREEN NEGATIVE (Neg); URINE PHENCYCLIDINE SCREEN NEGATIVE (Neg)
--- NOTE | 2025-02-16 16:49 | HISTORY AND PHYSICAL-Residence ---
History & Physical Providers to CC Resident Creating Document: YENNIFERTRISTONHILARIACalvinRICHAR, VERNA ~ History of Present Illness Reason for Admit\Complaint: Confusion History of Present Illness 74-year-old male with history of type 2 diabetes, CAD status post stenting in December 2024, CHF with reduced ejection fraction hypertension was brought to the ED by EMS after the found him confused, lying in filth and cold in his trailer. Apparently he ran out of pain and was inappropriately dressed in the cold weather in his trailer. He has not been compliant with his medication. He was alert oriented time and place and cooperative when I examined him, but not really been able to recollect past events. No complaints of chest pain, shortness of breath, dizziness, palpitation, leg swelling, syncope. No history of falls. No complaints of fever/chills, abdominal pain, burning micturition or increased urgency and frequency. He complains of pain in his right inner thigh where there is a healing hematoma which was present during his previous hospitalization He lives with his dogs and birds. He has a girlfriend who lives in [place]. Denies smoking cigarettes or drinking alcohol. Smokes pot sometimes. Is independent in daily activities. Allergies: Coded Allergies: No Known Allergies (Unverified , 11/24/24) Home Medications Home Medications Active Metformin ER* (Metformin HCl) 500 Mg Tab.sr.24h 2 Tab PO BID 30 Days Methocarbamol 750 Mg Tablet 1 Tab PO Q8H PRN 10 Days PROTONIX tablet (Pantoprazole Sodium) 40 Mg Tablet.dr 40 Mg PO DAILY 30 Days Atorvastatin Calcium 20 Mg Tablet 80 Mg OGT DAILY Clopidogrel (Clopidogrel Bisulfate) 75 Mg Tablet 75 Mg OGT DAILY Do not stop medication unless instructed by prescriber. Reported Toprol Xl* (Metoprolol Succinate) 25 Mg Tab.sr.24h 1 Tab PO DAILY Muscle Rub 15%-10% Cream (Methyl Salicylate/Menthol) 15 %-10 % Cream..g. 1 Applic TOP TID PRN Cozaar* (Losartan Potassium) 25 Mg Tablet 1 Tab PO DAILY Levetiracetam 750 Mg Tab.er.24h 1 Tab PO Q12H Neurontin (Gabapentin) 300 Mg Capsule 3 Cap PO BID Duloxetine HCl 30 Mg Capsule.dr 1 Cap PO BID Aspirin EC (Aspirin) 81 Mg Tablet.dr 1 Tab PO DAILY Ondansetron Odt (Ondansetron HCl) 4 Mg Tab.rapdis 1 Tab PO Q6H PRN PRN Tylenol (Acetaminophen) 325 Mg Tablet 1 Tab PO Q6H PRN Past Medical History Past Medical History Type 2 diabetes Hypertension CAD status post stenting in December [address] Martinez Peripheral paresthesias Past Surgical History Surgical History Comment Cholecystectomy Appendectomy Hydrocephalus, shunt was placed Two laminectomy and one disectomy Bilateral arm surgeries Family History Family History: FH: alcohol abuse FATHER, MOTHER, FH: alcohol abuse FATHER, MOTHER, Past Social History Lives with: Alone Lives In: Home Occupation: disabled ROS All Other Systems: Reviewed and Negative Constitutional: Reports: see HPI Exam Vitals: Vital Signs Date Time Temp Pulse Resp B/P (MAP) Pulse Ox O2 Delivery O2 Flow Rate FiO2 02/16/25 15:51 103 31 157/90 (112) 99 0 02/16/25 13:52 98.9 General: General Appearance: Well developed, unkempt. Awake, alert and oriented x4, resting comfortably in bed, in mild acute distress. HEENT: Atraumatic, normocephalic, PAIGE, EOMI. Normal oropharynx, moist oral mucosa. Neck: Trachea midline. Supple, normal ROM. No JVD, bruit, lymphadenopathy or masses, or other lesions. Respiratory: Chest wall is symmetric and without deformity. No signs of respiratory distress. Equal breath sounds bilaterally. No wheeze, rub, Rales or crackles. Cardiac: RRR, normal S1-S2. Grade 3/6 ejection systolic murmur loudest in the aortic area, no rub or gallop. GI: Abdomen symmetric, nondistended, soft, normal bowel sounds x4 quadrant normoactive. No hepatosplenomegaly. No masses, no bruit. Extremities: Bruises present on upper and lower extremities. Right lower extremity has huge bruise from the hip to the upper leg. Resolving hematoma in the right groin at the catheterization site, dressing intact. Skin: Bruises noted on upper and lower extremity. Unkempt skin and nails. Neuro: Speech is clear, alert and oriented x4. No sensory or motor deficit, DTRs normal. Cranial nerves II to XII intact. Diagnostic Data Last Recorded Lab Results: 02/16/25 1440 02/16/25 1440 Counseling Services Smoking & Tobacco Cessation: N/A Advance Care Planning Advanced Care plannin - 30 Minutes Additional Plan Disorientation most likely due to metabolic versus toxic encephalopathy Patient meets SIRS criteria with tachycardia and leukocytosis with no source of infection. U tox positive for cannabinoids and benzodiazepines. Vitals: Stable [place] [address] Leukocytosis most likely due to infection or dehydration or reactive Lactic acid 1.8, awaiting inflammatory markers , urinalysis normal Plan: Fluid hydration with 100 mL/hour normal saline Awaiting TSH and ammonia levels. LEYDI most likely prerenal Creatinine 1.24, BUN 20 (baseline creatinine 0.8) Ordered urine sodium and urine creatinine to measure FENa Hydration with 100 mL/hour normal saline Comorbidities -Hyperglycemia from type 2 diabetes mellitus with diabetic neuropathy and nephropathy, medication noncompliant Patient has not hypo/hyperglycemia protocol, gabapentin 900 mg p.o. b.i.d. -Hypertension -continue home medication losartan 25 mg p.o. daily -Cardiovascular disease status post PCI continue home medication aspirin 81 mg p.o. daily, atorvastatin 20 mg p.o. daily, clopidogrel 75 mg p.o. daily, metoprolol 25 mg p.o. daily. -History of seizures: Continue home medication Keppra 750 mg p.o. b.i.d. -History of drop in 5 grams/dL hemoglobin during past hospitalization, normal endoscopy-continued home medication pantoprazole 40 mg p.o. daily. Code status: Full code DVT prophylaxis: Heparin 5000 units subcutaneous q.8h Analgesia/sedation: Morphine/[place]/tube: PIV GI prophylaxis: None Nutrition: Heart healthy PT: Ordered. Prognosis: Guarded Disposition: Admit to PCU I spent a total of 16 minutes discussing various resuscitative methods with the patient and the patient chose to be full code. Richar Mckeon MD PGY1, Internal Medicine [facility] Date of Service: Feb 16, 2025 Billing Provider: CHACE BRIONES MD Common Visit Codes: [id number] INP/OBS CARE (HIGH) Secondary Visit Codes: [id number] CARE PLAN 30 MINUTES RICHAR MCKEON, RES Feb 16, 2025 16:49 CHACE BRIONES MD Feb 18, 2025 06:23
[2025-02-16 18:09] VITALS: BP 130/88; PULSE 101; RESP 18; TEMP 98.1; O2SAT 99
[2025-02-16] MEDS: normal saline 1000ml 1,000 ML IV SCH (18:45)
[2025-02-16] MEDS ORDERED: DEXTROSE 15 GM of carb/4 tabs (each vial/BOTTLE has 4 tablets) PO PRN ×2 (18:45)
[2025-02-16] MEDS ORDERED: glucagon, human recombinant 1mg kit SUBCUT PRN (18:45)
[2025-02-16] MEDS ORDERED: dextrose 50%-water 50ml dispensing syringe IV PRN ×2 (18:45)
[2025-02-16] MEDS: K and/or MAG REPLACEMENT MC SCH (18:54)
[2025-02-16] MEDS: HYDROcodone/acetaminophen 5mg/325mg tablet PO PRN (20:04)
[2025-02-16] MEDS: INSULIN LISPRO 100 UNIT/ML INSULN.PEN MULTI-DOSE SQ SCH (21:00)
[2025-02-16] MEDS: docusate sod 100mg capsule PO SCH (21:28)
[2025-02-16] MEDS: heparin, porcine 5000 units/ml vial SQ SCH (21:33)
[2025-02-16] MEDS: insulin glargine (Lantus) pen - multi-dose SQ ONE (21:35)
[2025-02-16 22:00] VITALS: BP 111/75; PULSE 94; RESP 13; TEMP 96.7; O2SAT 97
[2025-02-17 02:00] VITALS: BP 149/86; PULSE 84; RESP 23; TEMP 97.4; O2SAT 98
[2025-02-17 06:00] VITALS: BP 92/58; PULSE 69; RESP 20; TEMP 97.6; O2SAT 95
[2025-02-17 06:58] LABS: MEAN PLATELET VOLUME 6.8 FL (7.4-10.4); RED CELL DISTRIBUTION WIDTH 14.0 % (11.5-14.5)
[2025-02-17 07:11] LABS: CREATININE 0.94 MG/DL (0.60-1.10); TOTAL CARBON DIOXIDE 29.5 MMOL/L (24-32); eCRCL 60 ML/MIN; eGFR 78 ML/MIN
[2025-02-17] MEDS: aspirin 81mg, enteric-coated 1 TAB TABLET.DR PO SCH (07:36)
[2025-02-17] MEDS: pantoprazole 40mg Tablet.DR PO SCH (07:36)
[2025-02-17] MEDS: metoprolol succinate 25mg (24-HOUR) SR. Tablet PO SCH (07:38)
[2025-02-17 08:00] VITALS: RESP 20; O2SAT 95
[2025-02-17] MEDS: INSULIN LISPRO 100 UNIT/ML INSULN.PEN MULTI-DOSE SQ SCH (09:25)
[2025-02-17] MEDS ORDERED: dextrose 50%-water 50ml dispensing syringe IV PRN ×2 (09:25)
[2025-02-17] MEDS ORDERED: glucagon, human recombinant 1mg kit SUBCUT PRN (09:25)
[2025-02-17] MEDS ORDERED: DEXTROSE 15 GM of carb/4 tabs (each vial/BOTTLE has 4 tablets) PO PRN ×2 (09:25)
[2025-02-17 11:00] VITALS: BP 156/99; PULSE 69; RESP 24; TEMP 97.6; O2SAT 92
[2025-02-17] MEDS ORDERED: INSULIN LISPRO 100 UNIT/ML INSULN.PEN MULTI-DOSE SQ SCH (12:00)
[2025-02-17] MEDS ORDERED: EMPA25TA PO (13:54)
[2025-02-17] MEDS ORDERED: FURO-150 PO (13:54)
[2025-02-17 15:00] VITALS: BP 110/62; PULSE 85; RESP 16; TEMP 99.3; O2SAT 96
--- NOTE | 2025-02-17 15:15 | DISCHARGE SUMMARY-Residence ---
Discharge Summary Providers to CC Resident Creating Document: RICHAR MORSE RES ~ Discharge Summary Admission Diagnosis: Metabolic encephalopathy Hospital Course DATE OF ADMISSION: 02/16/2025 DATE OF DISCHARGE: 02/17/2025 Discharge Diagnosis\Comment: Toxic encephalopathy Type 2 diabetes complicated with diabetic nephropathy and diabetic neuropathy medication noncompliant CHF with reduced ejection fraction Hypertension LEYDI most likely prerenal CAD status post PCI in December 2024 History of seizures Protein energy malnutrition Operations\Procedures: None Consultants: None Complications: None Condition on DC: Stable New Medications: Empagliflozin (Jardiance) 25 Mg Tablet 1 TAB PO DAILY for 30 Days, #30 TAB 0 Refills Furosemide (Lasix) 20 Mg Tablet 20 MG PO DAILY for 30 Days, #30 TAB Continued Medications: Acetaminophen (Tylenol) 325 Mg Tablet 1 TAB PO Q6H PRN for pain Aspirin (Aspirin EC) 81 Mg Tablet.dr 1 TAB PO DAILY Atorvastatin Calcium (Atorvastatin Calcium) 20 Mg Tablet 80 MG OGT DAILY, #120 TAB Clopidogrel Bisulfate (Clopidogrel) 75 Mg Tablet 75 MG OGT DAILY, #30 TAB Do not stop medication unless instructed by prescriber. Duloxetine HCl (Duloxetine HCl) 30 Mg Capsule.dr 1 CAP PO BID Gabapentin (Neurontin) 300 Mg Capsule 3 CAP PO BID for MIGRAINE Levetiracetam (Levetiracetam) 750 Mg Tab.er.24h 1 TAB PO Q12H Losartan Potassium* (Cozaar*) 25 Mg Tablet 1 TAB PO DAILY Metformin Hcl* (Metformin ER*) 500 Mg Tab.sr.24h 2 TAB PO BID for 30 Days, #120 TAB.SR Methocarbamol (Methocarbamol) 750 Mg Tablet 1 TAB PO Q8H PRN for muscle spasms for 10 Days, #30 TAB 0 Refills Methyl Salicylate/Menthol (Muscle Rub 15%-10% Cream) 15 %-10 % Cream..g. 1 APPLIC TOP TID PRN for MUSCLE PAIN Metoprolol Succinate* (Toprol Xl*) 25 Mg Tab.sr.24h 1 TAB PO DAILY ONDANSETRON ODT 4mg tablet (Ondansetron Odt) 4 Mg Tab.rapdis 1 TAB PO Q6H PRN PRN for nausea/vomiting, TAB 0 Refills Pantoprazole Sodium (PROTONIX tablet) 40 Mg Tablet.dr 40 MG PO DAILY for 30 Days, #30 TAB.SR Discharge Summary: History presenting illness: 74-year-old male with history of type 2 diabetes, CAD status post stenting in December 2024, CHF with reduced ejection fraction hypertension was brought to the ED by EMS after the found him confused, lying in filth and cold in his trailer. Apparently he ran out of the propane gas and was inappropriately dressed in the cold weather in his trailer. He has not been compliant with his medication. He was alert oriented time and place and cooperative on examination, but not really been able to recollect past events. No complaints of chest pain, shortness of breath, dizziness, palpitation, leg swelling, syncope. No history of falls. No complaints of fever/chills, abdominal pain, burning micturition or increased urgency and frequency. He complained of pain in his right inner thigh where there is a healing hematoma which was present during his previous hospitalization He lives with his dogs and birds. He has a girlfriend who lives in [place]. De nies smoking cigarettes or drinking alcohol. Smokes pot sometimes. Is independent in daily activities. Hospital course: The patient was treated with IV fluid for dehydration and reactive leukocytosis. His U tox was positive for benzodiazepines and marijuana which spent be the contributing factors for toxic encephalopathy. TSH and ammonia level were normal with stable vitals. His hemoglobin A1c was elevated to 8.2 for which he was added Jardiance along with metformin. He was found to have elevated NT proBNP with past echo showing preserved ejection fraction. He was started on Lasix for the same. The patient improved significantly in his short period of time, he is now hemodynamically and symptomatically better and hence being discharged with the following instructions. The patient states that he has enough money and Depakote truck together his belongings and living in a hotel until the heater in his trailer is fixed. Vital Signs Date Time Temp Pulse Resp B/P (MAP) Pulse Ox O2 Delivery O2 Flow Rate FiO2 02/17/25 11:00 97.6 69 24 156/99 (118) 92 Room Air 02/16/25 15:51 0 Laboratory Tests Test 02/16/25 14:32 02/16/25 14:40 02/16/25 15:20 02/16/25 17:29 Glucometer 344 mg/dl White Blood Count 15.4 X10'3 Red Blood Count 4.11 X10'6 Hemoglobin 12.2 g/dl Hematocrit 36.8 % Mean Corpuscular Volume 89.6 FL Mean Corpuscular Hemoglobin 29.6 PG Mean Corpuscular Hemoglobin Concent 33.0 g/dL Red Cell Distribution Width 14.2 % Platelet Count 595 X10'3 Mean Platelet Volume 6.7 FL Neutrophils (%) (Auto) 77.4 % Lymphocytes (%) (Auto) 12.2 % Monocytes (%) (Auto) 9.4 % Eosinophils (%) (Auto) 0.3 % Basophils (%) (Auto) 0.7 % Neutrophils # (Auto) 11.9 X10'3 Lymphocytes # (Auto) 1.9 X10'3 Monocytes # (Auto) 1.4 X10'3 Eosinophils # (Auto) 0.0 X10'3 Basophils # (Auto) 0.1 X10'3 CBC Comment Sodium Level 135 MMOL/L Potassium Level 4.6 MMOL/L Chloride Level 100 MMOL/L Carbon Dioxide Level 28.2 MMOL/L Anion Gap 7 Blood Urea Nitrogen 20 MG/DL Creatinine 1.24 MG/DL Estimated GFR/1.73 m2 57 ML/MIN BUN/Creatinine Ratio 16.1 Glucose Level 339 MG/DL Lactic Acid Level 2.1 MMOL/L 1.8 MMOL/L Calcium Level 8.9 MG/DL Troponin I High Sensitivity 32 ng/L Albumin 3.1 G/DL Chemistry Comments Ethyl Alcohol Level < 10 MG/DL Urine Specimen Description Urinal Urine Color Dark yellow Urine Clarity Clear Urine pH 6.5 Urine Specific [place] 1.025 Urine Protein 100 mg/dl Urine Glucose (UA) 500 mg/dl Urine Ketones Trace mg/dl Urine Occult Blood Negative Urine Nitrite Negative Urine Bilirubin Moderate Urine Urobilinogen 2.0 E.U/dL Urine Leukocyte Esterase Negative Urine RBC None seen /HPF Urine WBC 0-4 /HPF Urine Squamous Epithelial Cells Few /LPF Urine Bacteria Few /HPF Urine Hyaline Casts 3-5 /LPF Urine Fine Granular Casts 3-5 /LPF Urine Mucus Few /LPF Urine Culture Indicated Not ind Volume Urine Centrifuged 10 ml Urine Comment Urine Opiates Screen Negative Urine Methadone Screen Negative Urine Fentanyl Screen Negative Urine Barbiturates Screen Negative Urine Phencyclidine Screen Negative Urine Amphetamines Screen Negative Urine Benzodiazepines Screen Positive Urine Cocaine Screen Negative Urine Cannabinoids Screen Positive Drug Screen Comment Test 02/16/25 19:02 02/16/25 21:03 02/17/25 02:00 02/17/25 06:34 Hemoglobin A1c 8.5 % Ammonia < 10 UMOL/L C-Reactive Protein 3.25 MG/DL Pro-B-Type Natriuretic Peptide 3360 PG/ML Procalcitonin < 0.05 NG/ML Thyroid Stimulating Hormone (TSH) 0.45 ulU/ml Glucometer 270 mg/dl 233 mg/dl White Blood Count 10.9 X10'3 Red Blood Count 3.78 X10'6 Hemoglobin 11.2 g/dl Hematocrit 33.9 % Mean Corpuscular Volume 89.8 FL Mean Corpuscular Hemoglobin 29.6 PG Mean Corpuscular Hemoglobin Concent 33.0 g/dL Red Cell Distribution Width 14.0 % Platelet Count 513 X10'3 Mean Platelet Volume 6.8 FL Neutrophils (%) (Auto) 64.4 % Lymphocytes (%) (Auto) 20.7 % Monocytes (%) (Auto) 11.6 % Eosinophils (%) (Auto) 2.1 % Basophils (%) (Auto) 1.2 % Neutrophils # (Auto) 7.0 X10'3 Lymphocytes # (Auto) 2.3 X10'3 Monocytes # (Auto) 1.3 X10'3 Eosinophils # (Auto) 0.2 X10'3 Basophils # (Auto) 0.1 X10'3 CBC Comment Sodium Level 139 MMOL/L Potassium Level 4.0 MMOL/L Chloride Level 105 MMOL/L Carbon Dioxide Level 29.5 MMOL/L Anion Gap 5 Blood Urea Nitrogen 23 MG/DL Creatinine 0.94 MG/DL Estimated GFR/1.73 m2 78 ML/MIN BUN/Creatinine Ratio 24.5 Glucose Level 204 MG/DL Calcium Level 7.9 MG/DL Magnesium Level 2.2 MG/DL Total Bilirubin 1.0 MG/DL Aspartate Amino Transf (AST/SGOT) 13 U/L Alanine Aminotransferase (ALT/SGPT) 12 U/L Alkaline Phosphatase 116 IU/L Total Protein 6.1 G/DL Albumin 2.6 G/DL Globulin 3.5 G/DL Albumin/Globulin Ratio 0.7 Chemistry Comments Test 02/17/25 06:50 02/17/25 08:32 02/17/25 12:02 Glucometer 176 mg/dl 194 mg/dl Imaging: Chest x-ray:No acute cardiopulmonary disease. Head CT: No acute intracranial hemorrhage or mass effect. Right frontal ventricular catheter in place with partially decompressed right lateral ventricle. Physical exam on discharge: General Appearance: Well developed, unkempt. Awake, alert and oriented x4, resting comfortably in bed, in mild acute distress. HEENT: Atraumatic, normocephalic, PAIGE, EOMI. Normal oropharynx, moist oral mucosa. Neck: Trachea midline. Supple, normal ROM. No JVD, bruit, lymphadenopathy or masses, or other lesions. Respiratory: Chest wall is symmetric and without deformity. No signs of respiratory distress. Equal breath sounds bilaterally. No wheeze, rub, Rales or crackles. Cardiac: RRR, normal S1-S2. Grade 3/6 ejection systolic murmur loudest in the aortic area, no rub or gallop. GI: Abdomen symmetric, nondistended, soft, normal bowel sounds x4 quadrant normoactive. No hepatosplenomegaly. No masses, no bruit. Extremities: Bruises present on upper and lower extremities. Right lower ext remity has huge bruise from the hip to the upper leg. Resolving hematoma in the right groin at the catheterization site, dressing intact. Skin: Bruises noted on upper and lower extremity. Unkempt skin and nails. Neuro: Speech is clear, alert and oriented x4. No sensory or motor deficit, DTRs normal. Cranial nerves II to XII intact. Discharge instructions: You have been started on two new medication lasix 20 mg po daily Jardiance 25 mg po daily Take you medication regularly. Visit you primary care doctor in 1-2 weeks. Visit ER immediately in case of any emergencies including chest pain, palpitation, dizziness, SOB, syncope. *Problems/Diagnosis: (1) CAD (coronary artery disease) Status: Resolved (2) Heart failure with reduced ejection fraction Status: Chronic (3) Seizures Status: Chronic (4) Dehydration Status: Acute (5) Hyperglycemia due to diabetes mellitus Status: Acute (6) LEYDI (acute kidney injury) Status: Acute Total Time Spent on D/C: > 30 Minutes Counseling Services Smoking & Tobacco Cessation: N/A Date of Service: Feb 17, 2025 Billing Provider: CHACE BRIONES MD Common Visit Codes: 16627-OTV/OBS DISCH DAY >30min RICHAR MORSE, RES Feb 17, 2025 15:13 CHACE BRIONES MD Feb 18, 2025 06:24
[2025-02-17] MEDS ORDERED: insulin glargine (Lantus) pen - multi-dose SQ ONE (21:00)
[2025-02-27] MEDS ORDERED: ATOR-2 PO (08:43)
[2025-02-27] MEDS ORDERED: CLOP75TA34 PO (08:44)
[2025-02-27] MEDS ORDERED: FURO20TA4 PO (08:45)
[2025-02-27] MEDS ORDERED: METH-798 PO (08:46)
[2025-02-27] MEDS ORDERED: PANT40SU2 PO (08:47)
== END 2025-02-17 16:36 | disposition home health service (06) | DRG 637 ==
LOC: ER 13:45 → ED HOLD 16:50 → PCU 3S 18:02
PROVIDERS: ADMIT Internal Medicine; ATTEND Internal Medicine
DX: E11.65 Type 2 diabetes mellitus with hyperglycemia (principal); G92.8 Other toxic encephalopathy; E44.0 Moderate protein-calorie malnutrition; I50.22 Chronic systolic (congestive) heart failure; Z59.01 Sheltered homelessness; N17.9 Acute kidney failure, unspecified; E11.21 Type 2 diabetes mellitus with diabetic nephropathy; E11.40 Type 2 diabetes mellitus with diabetic neuropathy, unspecified; D72.829 Elevated white blood cell count, unspecified; E86.0 Dehydration; I11.0 Hypertensive heart disease with heart failure; I25.10 Atherosclerotic heart disease of native coronary artery without angina pectoris; G89.29 Other chronic pain; M54.9 Dorsalgia, unspecified; F15.90 Other stimulant use, unspecified, uncomplicated; Z95.5 Presence of coronary angioplasty implant and graft; Z91.148 Patient's other noncompliance with medication regimen for other reason; I25.2 Old myocardial infarction; Z90.49 Acquired absence of other specified parts of digestive tract; Z68.20 Body mass index [BMI] 20.0-20.9, adult
CPT/HCPCS: 36415; 70450; 71045; 80048; 80053; 80305; 80320; 81001; 82140; 82948; 83036; 83605; 83735; 83880; 84145; 84146; 84443; 84484; 85025; 86140; 87081; 93005; 96372; 99285; G0378; J1644; J1815; J7030